=== PATIENT | male | born 1970 | race Caucasian/White ===

== ENCOUNTER 2018-01-25 15:12 | Outpatient (REF) | payer MEDICAID, SELFPAY ==
[2018-01-25 19:54] LABS: ALT 48 U/L (12-78); AST 30 U/L (15-37); Albumin 3.6 g/dL (3.4-5.0); Alkaline Phosphatase 110 U/L (46-116); Bilirubin, Direct 0.07 mg/dL (0.00-0.20); Bilirubin, Total 0.3 mg/dL (0.2-1.0); Total Protein 7.1 g/dL (6.4-8.2)
== END 2018-01-25 15:32 ==
LOC: NCHCN 15:12
PROVIDERS: PCP Internal Medicine; Visit Provider Family Medicine
DX: F10.20 Alcohol dependence, uncomplicated (principal)
CPT/HCPCS: 80076

== ENCOUNTER 2018-02-20 11:25 | Day surgery (SDC) | payer MEDICAID, SELFPAY ==
--- NOTE | 2018-02-19 16:21 | POEE_ITS ---
History of Present Illness Chief Complaint: Progressive decreased vision, left eye Narrative: The patient is a 47-year old male with history of progressive decreased vision in the left eye. He notes blurred vision in the left eye for years. On examination he was noted to have dense posterior subcapsular cataract in the left eye with visual acuity of 2/200. NOTE: The Chief Complaint, HPI, Past Medical History, Past Surgical History, Family History, Social History, Medications, and complete Ophthalmic Exam with detailed Assessment and Plan have already been documented in the patient's outpatient ophthalmic record and are not covered again in detail here. PFSH Medical History Optic atrophy, left eye (Chronic) Mature cataract (Acute) Posterior subcapsular age-related cataract of left eye (Acute) Alcoholism Allergic rhinitis Anxiety and depression Bicuspid aortic valve Cholesteatoma DJD (degenerative joint disease) Diarrhea Elbow pain GERD (gastroesophageal reflux disease) HTN (hypertension) Hearing loss Hemorrhoids Insomnia Lumbosacral neuritis Mastoiditis Otitis externa Papular urticaria Right shoulder pain TIA (transient ischemic attack) Tobacco use disorder Social History Smoking/Tobacco Use Status: Current every day Surgical History Arthroscopy, Shoulder Tympanoplasty I Tympanoplasty II - IV Meds Home Medications Medication Instructions Recorded Confirmed Type aspirin [Low Dose Aspirin Ec] 81 mg PO DAILY tab-cap NS 09/19/17 02/15/18 History albuterol sulfate [Proair 90 mcg INHALATION Q6H PRN 09/22/17 02/15/18 History Respiclick] pantoprazole [Protonix] 40 mg PO DAILY packet 09/22/17 02/15/18 History cetirizine [Zyrtec] 10 mg PO DAILY 02/15/18 02/15/18 History metoprolol succinate 50 mg PO DAILY 02/15/18 02/15/18 History triamcinolone acetonide 1 applic TOPICAL BID 02/15/18 02/15/18 History Allergies Allergy/AdvReac Type Severity Reaction Status Date / Time ibuprofen Allergy Mild Hives Unverified 11/01/17 08:31 lisinopril Allergy Unknown Unverified 11/01/17 08:31 Exam OCULAR EXAM:: Visual acuity at distance: 20/20 right eye, 2/200 left eye Pupils: Significant for an a fair pupillary defect, left eye IOP: 16 OD 18 OS Extraocular Motility: Normal Pertinent Slit Lamp Findings: Significant for pupils dilating to 8 mm OU. Clear lens OD. A 3+ posterior subcapsular cataract is present OS with focal cortical opacities. Dilated Funduscopic Examination: There is no view of the posterior pole in the left eye due to cataract. The right eye shows disc cupping of 0.2. The vessels , macula, peripheral retina and vitreous are normal in the right eye. BRIGHTNESS ACUITY TESTING (BAT):: Off left eye 2/200 Low: 20/400 Medium: Unable High: Unable Assessment and Plan (1) Posterior subcapsular age-related cataract of left eye: Current visit: No Status: Acute Assessment: Visually significant cataract, left eye. Plan: Cataract extraction with intraocular lens implantation, left eye (2) Mature cataract: Current visit: No Status: Acute Assessment: Visually significant cataract, left eye, with poor red reflex Plan: Cataract extraction with intraocular lens implantation, left eye, utilizing capsular staining with vision Blue (3) Optic atrophy, left eye: Current visit: No Status: Chronic Assessment: Optic atrophy, left eye, by history. No view of the optic nerve is possible through mature cataract Plan: Monitor, no treatment Note: NOTE:: The details of the planned surgery, including the risks, indications, limitations,expectations,outcome and possible complications were explained to the patient. The patient understands the complications including, but not limited to: infection, hemorrhage, posterior dislocation of the lens or nuclear fragments which may require the intervention of a vitreoretinal surgeon, possible loss of the eye, or from anesthetic complications. The patient has been made aware of the option of not having surgery, that vision following surgery may not be equal to that prior to surgery, and that the planned surgery may not achieve the intended results. Following this discussion, which the patient appeared to understand, the patient wishes to proceed with cataract surgery with lens implantation of the affected eye to improve and maximize vision.
[2018-02-20 11:41] VITALS: BP 134/91; PULSE 71; RESP 18; TEMP 36.8; O2SAT 99
[2018-02-20 11:44] VITALS: BP 134/91; PULSE 71; RESP 18; TEMP 36.8; O2SAT 99
[2018-02-20] MEDS: Tetracaine 0.5% 4 ML BTL OS ×2 (12:05→12:58)
[2018-02-20] MEDS: Lidocaine 2% Jelly 6 ML SYR (12:58)
[2018-02-20] MEDS: Balanced Salt Soln.-PLUS 500 ML BAG (13:04)
[2018-02-20] MEDS: Trypan Blue 0.06% 0.5 ML SYR (13:04)
[2018-02-20] MEDS: Povidone-Iodine Ophth 30 ML BTL (13:10)
--- NOTE | 2018-02-20 13:46 | W.PM.DSUDISC ---
Discharge Plan Discharge Details Attending Provider: Sebastian Felix Primary Care Provider: Cristel Ramos Home Meds and New Rx's Prescriptions: No Action aspirin [Aspirin Low Dose] 81 MG tablet,delayed release (DR/EC) 81 mg PO DAILY RF: 0 pantoprazole [Protonix] [address] for susp in packet 40 mg PO DAILY RF: 0 albuterol sulfate [ProAir RespiClick] 90 MCG aerosol powdr breath activated 90 mcg Inhalation Q6H PRN RF: 0 triamcinolone acetonide 0.1 % Cream 1 applic TOPICAL BID RF: 0 cetirizine [Zyrtec] 10 mg Capsule 10 mg PO DAILY RF: 0 metoprolol succinate 50 mg Cap,Sprinkle,Er 24hr Dose Pack 50 mg PO DAILY RF: 0 Discharge Instructions Stand Alone Forms: Post-op Topical Cataract, [place] Galeas (DSU) DS: Diagnosis Discharge Diagnosis (1) Posterior subcapsular age-related cataract of left eye: Status: Resolved (2) Mature cataract: Status: Resolved (3) Optic atrophy, left eye: Status: Chronic
--- NOTE | 2018-02-20 13:48 | W.PM.OP ---
Date of service: 02/20/18 Time of Service: 13:48 Operative Note DATE OF PROCEDURE: 02/20/18 PRE-OP DIAGNOSIS: Cataract, left eye, with poor red reflex POST-OP DIAGNOSIS: same PROCEDURE: Cataract extraction using phacoemulsification with intraocular lens implant, left eye, using capsular staining with Vision Blue SURGEON: Sebastian Felix ANESTHESIA: MAC (with local sub-tenon's anesthetic injection) COMPLICATIONS: None Patient was transported to: same day Patient's condition: stable Implants: Tony and Tony / [employer] Tecnis [id number] Indications: Progressive decreased vision due to cataract, left eye, with poor red reflex Findings: Severe zonular laxity Procedure Description: CATARACT SURGERY OPERATIVE REPORT PREOPERATIVE DIAGNOSIS: 1. Mature white cataract, dense posterior subcapsular cataract, left eye 2. Poor red reflex secondary to #1 POSTOPERATIVE DIAGNOSIS: Same OPERATION: 1. Cataract extraction using phacoemulsification with posterior chamber intraocular lens implant, left eye. 2. Capsular staining with Vision Blue IOL: IOL Florist'S Decorator/Model: Tony & Tony / YISEL Tecnis [id number] IOL Power: +25.00 diopters IOL Serial Number: [id number] Optic Diameter: 6.0 mm Haptic/Overall Diameter: 13.0 mm PHACO INFO: Johnnie MynewMDurion Vision System with OZil and Active Fluidics Cumulative Dispersed Energy (CDE): 18.88 seconds SURGEON: Sebastian Felix MD, RADHA ANESTHESIA: Monitored Anesthesia Care (MAC), with local sub-tenon's anesthetic infiltration COMPLICATIONS: None SPECIMENS: None INDICATIONS FOR PROCEDURE: The patient is a 48-year-old male with history of optic atrophy of the left eye with poor vision for many years. However, he has noted progressive decreased vision over the past several years. On examination he was noted to have a dense posterior subcapsular cataract with almost mature white cataract of the left eye. Visual acuity measured 2/200, with an afferent pupillary defect OS. The option of cataract surgery was offered to the patient and he wished to proceed. PROCEDURE: The correct surgical eye was identified and marked as the left eye and the pupil was dilated in the preoperative area using mydriatics, cycloplegics, and NSAIDS (except in aspirin allergic patients). The dilated pupil size was 7.5.mm. Oral sedation was administered in the form of an Imprimis MKO Melt (midazolam 3mg/ketamine 25mg/ondansetron 2mg). The patient was brought to the operating room where cardiopulmonary monitoring was instituted and surgical time-out was performed, confirming the correct operative eye and IOL power. Topical anesthesia was administered and ophthalmic povidone-iodine 5% was instilled into the conjunctival fornices. Lidocaine gel was applied to the cornea and the max-ocular area was prepped with Betadine 10% solution and draped in the usual sterile fashion for intraocular surgery. Steri-strips were used to cover the lashes and lid margins and an adhesive eye drape was placed. Care was taken to isolate the lashes and lid margins under the Steri-strips and adhesive eye drape. A lid speculum was placed between the lids of the operative eye and the Myke-Montrell operating microscope was maneuvered into position. Bryant scissors were then used to make a conjunctival buttonhole approximately 6mm posterior to the limbus in the inferonasal quadrant. Blunt dissection was carried out to expose bare sclera, and a blunt-tipped sub-tenon?s anesthesia cannula was introduced and passed posteriorly along the globe where non-preserved plain lidocaine was injected into posterior sub-Tenon?s space. A sideport knife was used to make a paracentesis port at the 12:00 position. Air was injected into the anterior chamber, followed by Vision Blue, which was painted over the anterior capsule and then irrigated out using BSS. The anterior chamber was filled with Healon GV. A 2.4mm keratome knife was used to create a half-thickness groove at the limbus and then to construct a three-plane near-clear corneal tunnel extending 2.0mm into clear cornea at the 3:00 position. A flap was raised on the anterior capsule and capsulorhexis forceps were used to complete a continuous curvilinear capsulorhexis of 5.5mm. The capsule was noted to be very thin. Severe zonular laxity was noted. Balanced salt solution was then used to perform cortical cleaving hydrodissection and nuclear hydrodelineation until the lens could be freely rotated within the capsular bag. The lens nucleus was then disassembled and removed within the capsular bag and iris plane using phacoemulsification. Nucleus splitters were used to aid in cracking the nucleus to minimize stress on the zonules. Residual cortical material was removed using the 45-degree angled silicone I/A tip with 0.3mm port. The posterior capsule was carefully polished to remove as much residual lens epithelial cells as safely possible. There was some residual fine cortical material in the subincisional area which could not be safely removed. The capsular bag was then inflated and the anterior chamber deepened with viscoelastic. The lens implant described above was inserted into the capsular bag using the YISEL [place] Injector. A Kuglen hook was used to dial the IOL into position. Residual viscoelastic was then removed first from posterior to the IOL, then from the anterior chamber using the I/A handpiece. Additional efforts were made to remove the friable subincisional cortical material. The lens implant was noted to center nicely within the capsular bag. The incisions were stromally hydrated, and the anterior chamber was reformed using BSS. Then 0.4cc of moxifloxacin 1.5mg/ml were injected into the capsular bag and anterior chamber. The incisions were checked with a Weck spear and found to be secure. Several drops of ophthalmic povidone-iodine 5% were then applied to the eye followed by two drops of Imprimis combination moxifloxacin/dexamethasone solution. The drapes were removed and a clear plastic protective eye shield was placed over the eye. The patient was then returned to Same Day Surgery in stable condition.
--- NOTE | 2018-02-20 13:52 | ROE_ITS ---
Date of service: 02/20/18 Time of Service: 13:48 Operative Note DATE OF PROCEDURE: 02/20/18 PRE-OP DIAGNOSIS: Cataract, left eye, with poor red reflex POST-OP DIAGNOSIS: same PROCEDURE: Cataract extraction using phacoemulsification with intraocular lens implant, left eye, using capsular staining with Vision Blue SURGEON: Sebastian Felix ANESTHESIA: MAC (with local sub-tenon's anesthetic injection) COMPLICATIONS: None Patient was transported to: same day Patient's condition: stable Implants: Tony and Tony / [employer] Opt[employer] Tecnis [id number] Indications: Progressive decreased vision due to cataract, left eye, with poor red reflex Findings: Severe zonular laxity Procedure Description: CATARACT SURGERY OPERATIVE REPORT PREOPERATIVE DIAGNOSIS: 1. Mature white cataract, dense posterior subcapsular cataract, left eye 2. Poor red reflex secondary to #1 POSTOPERATIVE DIAGNOSIS: Same OPERATION: 1. Cataract extraction using phacoemulsification with posterior chamber intraocular lens implant, left eye. 2. Capsular staining with Vision Blue IOL: IOL Metal Bonding Press Operator/Model: Tony & Tony / YISEL Tecnis [id number] IOL Power: +25.00 diopters IOL Serial Number: [id number] Optic Diameter: 6.0 mm Haptic/Overall Diameter: 13.0 mm PHACO INFO: Johnnie Sorrento Therapeuticsurion Vision System with OZil and Active Fluidics Cumulative Dispersed Energy (CDE): 18.88 seconds SURGEON: Sebastian Felix MD, RADHA ANESTHESIA: Monitored Anesthesia Care (MAC), with local sub-tenon's anesthetic infiltration COMPLICATIONS: None SPECIMENS: None INDICATIONS FOR PROCEDURE: The patient is a 48-year-old male with history of optic atrophy of the left eye with poor vision for many years. However, he has noted progressive decreased vision over the past several years. On examination he was noted to have a dense posterior subcapsular cataract with almost mature white cataract of the left eye. Visual acuity measured 2/200, with an afferent pupillary defect OS. The option of cataract surgery was offered to the patient and he wished to proceed. PROCEDURE: The correct surgical eye was identified and marked as the left eye and the pupil was dilated in the preoperative area using mydriatics, cycloplegics, and NSAIDS (except in aspirin allergic patients). The dilated pupil size was 7.5.mm. Oral sedation was administered in the form of an Imprimis MKO Melt (midazolam 3mg/ketamine 25mg/ondansetron 2mg). The patient was brought to the operating room where cardiopulmonary monitoring was instituted and surgical time-out was performed, confirming the correct operative eye and IOL power. Topical anesthesia was administered and ophthalmic povidone-iodine 5% was instilled into the conjunctival fornices. Lidocaine gel was applied to the cornea and the max-ocular area was prepped with Betadine 10% solution and draped in the usual sterile fashion for intraocular surgery. Steri-strips were used to cover the lashes and lid margins and an adhesive eye drape was placed. Care was taken to isolate the lashes and lid margins under the Steri-strips and adhesive eye drape. A lid speculum was placed between the lids of the operative eye and the Myke-Montrell operating microscope was maneuvered into position. Bryant scissors were then used to make a conjunctival buttonhole approximately 6mm posterior to the limbus in the inferonasal quadrant. Blunt dissection was carried out to expose bare sclera, and a blunt-tipped sub-tenon? s anesthesia cannula was introduced and passed posteriorly along the globe where non-preserved plain lidocaine was injected into posterior sub-Tenon?s space. A sideport knife was used to make a paracentesis port at the 12:00 position. Air was injected into the anterior chamber, followed by Vision Blue, which was painted over the anterior capsule and then irrigated out using BSS. The anterior chamber was filled with Healon GV. A 2.4mm keratome knife was used to create a half-thickness groove at the limbus and then to construct a three-plane near-clear corneal tunnel extending 2.0mm into clear cornea at the 3 :00 position. A flap was raised on the anterior capsule and capsulorhexis forceps were used to complete a continuous curvilinear capsulorhexis of 5.5mm. The capsule was noted to be very thin. Severe zonular laxity was noted. Balanced salt solution was then used to perform cortical cleaving hydrodissection and nuclear hydrodelineation until the lens could be freely rotated within the capsular bag. The lens nucleus was then disassembled and removed within the capsular bag and iris plane using phacoemulsification. Nucleus splitters were used to aid in cracking the nucleus to minimize stress on the zonules. Residual cortical material was removed using the 45-degree angled silicone I/A tip with 0.3mm port. The posterior capsule was carefully polished to remove as much residual lens epithelial cells as safely possible. There was some residual fine cortical material in the subincisional area which could not be safely removed. The capsular bag was then inflated and the anterior chamber deepened with viscoelastic. The lens implant described above was inserted into the capsular bag using the YISEL [place] Injector. A Kuglen hook was used to dial the IOL into position. Residual viscoelastic was then removed first from posterior to the IOL, then from the anterior chamber using the I/A handpiece. Additional efforts were made to remove the friable subincisional cortical material. The lens implant was noted to center nicely within the capsular bag. The incisions were stromally hydrated, and the anterior chamber was reformed using BSS. Then 0.4cc of moxifloxacin 1.5mg/ml were injected into the capsular bag and anterior chamber. The incisions were checked with a Weck spear and found to be secure. Several drops of ophthalmic povidone-iodine 5% were then applied to the eye followed by two drops of Imprimis combination moxifloxacin/dexamethasone solution. The drapes were removed and a clear plastic protective eye shield was placed over the eye. The patient was then returned to Same Day Surgery in stable condition.
[2018-02-20 14:05] VITALS: BP 128/99; PULSE 74; RESP 16; TEMP 36.8; O2SAT 97
== END 2018-02-20 14:15 | disposition home or self-care (01) ==
LOC: SUR 11:26
PROVIDERS: PCP Family Medicine; Visit Provider Ophthalmology
PROC: (CPT 66982; principal; 2018-02-20 14:30)
DX: H25.042 Posterior subcapsular polar age-related cataract, left eye (principal); H35.89 Other specified retinal disorders; J44.9 Chronic obstructive pulmonary disease, unspecified; I10 Essential (primary) hypertension; K21.9 Gastro-esophageal reflux disease without esophagitis; F10.10 Alcohol abuse, uncomplicated; F17.210 Nicotine dependence, cigarettes, uncomplicated
CPT/HCPCS: 66982; V2632

== ENCOUNTER 2018-05-05 18:18 | Outpatient (REF) | payer MEDICAID, SELFPAY ==
[2018-05-05 18:30] LABS: HCT 45.1 % (40.0-50.0); HGB 15.9 g/dL (13.5-17.5); Mean Corp. HGB Concentration 35.3 g/dL (32.0-36.0); Mean Corpuscular Hemoglobin 33.8 pg (27.0-33.0); Mean Corpuscular Volume 95.8 fL (80-95); Mean Platelet Volume 9.6 fL (8.0-11.0); Platelet Count 255 x1000/uL (130-400); RBC 4.71 m/cumm (4.50-6.00); RBC Distribution Width 13.9 % (11.8-14.1)
[2018-05-05 18:49] LABS: ALT 58 U/L (12-78); AST 30 U/L (15-37); Albumin 3.8 g/dL (3.4-5.0); Alkaline Phosphatase 88 U/L (46-116); Anion Gap 12.8 mmol/L (3-11); BUN 3 mg/dL (7-18); Bilirubin, Total 0.4 mg/dL (0.2-1.0); CO2 23.2 mmol/L (21.0-32.0); CREATININE 0.73 mg/dL (0.70-1.30); Calcium 8.8 mg/dL (8.5-10.1); Chloride 102 mmol/L (98-107); Glucose 87 mg/dL (70-100); Potassium 3.8 mmol/L (3.5-5.1); Sodium 138 mmol/L (136-145)
== END 2018-05-05 18:38 ==
LOC: NCHCN 18:18
PROVIDERS: PCP Family Medicine; Visit Provider Family Medicine
DX: R19.7 Diarrhea, unspecified (principal); R42 Dizziness and giddiness
CPT/HCPCS: 80053; 85027; 83735

== ENCOUNTER 2018-05-14 19:39 | Emergency (ER) | payer MEDICAID, SELFPAY ==
[2018-05-14 19:49] VITALS: BP 133/83; PULSE 99; RESP 20; TEMP 36.7; O2SAT 94
[2018-05-14 19:51] VITALS: RESP 20
--- NOTE | 2018-05-14 20:02 | W.ED.GENAD ---
Discharge Plan Disposition Patient Disposition: HOME Condition: Stable Discharge Details Chief Complaint: GenMedical Clinical Impression: Alcohol abuse, Intractable hiccups Primary Care Provider: Cristel Ramos ED Provider: Eulalio Cummings Home Meds and New Rx's Prescriptions: New metoclopramide HCl 5 mg tablet 5 mg PO ONCE PRN (Reason: hiccups) 5 Days Qty: 20 RF: 0 No Action aspirin [Aspirin Low Dose] 81 MG tablet,delayed release (DR/EC) 81 mg PO DAILY RF: 0 Protonix [address] for susp in packet 40 mg PO DAILY RF: 0 ProAir RespiClick 90 MCG aerosol powdr breath activated 90 mcg Inhalation Q6H PRN RF: 0 triamcinolone acetonide 0.1 % Cream 1 applic TOPICAL BID RF: 0 Zyrtec 10 mg Capsule 10 mg PO DAILY RF: 0 metoprolol succinate 50 mg Cap,Sprinkle,Er 24hr Dose Pack 50 mg PO DAILY RF: 0 Discharge Instructions Instructions: Hiccups (ED) Additional Instructions: Your alcohol use is likely causing your hiccups follow up with your primary care provider within 1-2 weeks if you have new symptoms such as fever, vision changes, difficulty breathing or severe abdominal pain return to the emergency department Medical Decision Making 48 yo male who drinks a 12 back of beer daily, copd who continues to smoke, comes in with complaint of hiccups for 4 days. HAs had issues with prologned hiccups in the past. He does have heavy smell of alcohol on his breath and has been drinking most of the day per pt but is caox4 with NIH of 0 on my exam, doubt cva and has no headaches to suggest underlying lead manufacturing technician tumor. I suspect symptoms are due to his heavy alcohol use but will eval for possible electrolyte abnormalities and pancreatitis and monitor. Has no foreign bodies in the ear canal that would be causing his symptoms as well. The noise that he is making doesn't sound typical of a hiccup so could also be psychogenic hiccups pt now resting in bed without symptoms, labs unremarkable other than etoh over 300, though remarkable is clinically sober. He is not driving home. I will prescribe the metoclopramide and advised to decrease alcohol use and f/u with pcp, return precautions given Differential Diagnosis alcohol use, pancreatitis, electrolyte abnormality Lab Data Lab results reviewed: Yes I reviewed the patient's lab results. HPI General Mode of arrival: ambulatory. Date/Time Provider Initiated Documentation: 05/14/18 19:51. Limitations to Documentation: no limitations. Information obtained by: patient. History of Present Illness 48 year old M presents to the emergency department with the chief complaint of hiccups, described as severe, Patient reports no radiation. Patient started experiencing this day(s) (4) and it has been constant. No relieving factors improve symptom(s), No exacerbating factors reported . Patient notes no other symptoms.. Patient did receive the following treatments prior to arrival, none Related Data Home Medications Medication Instructions Recorded Confirmed aspirin [Low Dose Aspirin Ec] 81 mg PO DAILY tab-cap NS 09/19/17 05/14/18 albuterol sulfate [Proair 90 mcg INHALATION Q6H PRN 09/22/17 05/14/18 Respiclick] pantoprazole [Protonix] 40 mg PO DAILY packet 09/22/17 05/14/18 cetirizine [Zyrtec] 10 mg PO DAILY 02/15/18 05/14/18 metoprolol succinate 50 mg PO DAILY 02/15/18 05/14/18 triamcinolone acetonide 1 applic TOPICAL BID 02/15/18 05/14/18 metoclopramide HCl 5 mg PO ONCE PRN 5 Days #20 tab 05/14/18 Previous Rx's Medication Instructions Recorded metoclopramide HCl 5 mg PO ONCE PRN 5 Days #20 tab 05/14/18 Allergies Allergy/AdvReac Type Severity Reaction Status Date / Time ibuprofen Allergy Mild Hives Unverified 05/14/18 19:53 lisinopril Allergy Unknown Unverified 05/14/18 19:53 General Stated Complaint: GenMedical DIANNA: 4 Review of Systems Review of Systems All systems reviewed & are unremarkable except as noted in HPI and below Constitutional Denies chills, Denies fever(s) and Denies weakness Eyes Denies loss of vision ENT Denies change in voice Cardiovascular Denies chest pain and Denies dyspnea Respiratory Denies dyspnea Gastrointestinal Denies abdominal pain, Denies nausea and Denies vomiting Genitourinary Denies dysuria Musculoskeletal Denies joint swelling Integumentary/Breasts Denies rash Neurologic Denies loss of vision and Denies weakness Endocrine Denies heat intolerance [facility] Medical History Optic atrophy, left eye (Chronic) Mature cataract (Resolved 02/20/18) Posterior subcapsular age-related cataract of left eye (Resolved 02/20/18) Alcoholism Allergic rhinitis Anxiety and depression Bicuspid aortic valve Cholesteatoma DJD (degenerative joint disease) Diarrhea Elbow pain GERD (gastroesophageal reflux disease) HTN (hypertension) Hearing loss Hemorrhoids Insomnia Lumbosacral neuritis Mastoiditis Otitis externa Papular urticaria Right shoulder pain TIA (transient ischemic attack) Tobacco use disorder Surgical History Arthroscopy, Shoulder Tympanoplasty I Tympanoplasty II - IV Social History Smoking/Tobacco Use Status: Current every day Exam Const General: no acute distress Orientation: alert HENMT Head: normal to inspection Ears: external ears normal General nose exam: external nose normal Mouth: moist mucous membranes Eyes General: appearance normal, both eyes and all related structures Neck Neck: normal visual inspection Resp Effort & Inspection: normal respiratory effort and able to speak in complete sentences Cardio Rate: regular rate Skin General skin exam: no rashes or lesions noted Neuro General: alert and oriented x3 Extrem General: normal to inspection Psych Mental Status: mental status grossly normal Course Vital Signs Temperature 36.7 C 05/14/18 19:49 Pulse 99 H 05/14/18 19:49 Respiratory Rate 20 05/14/18 19:49 Blood Pressure 133/83 05/14/18 19:49 Pulse Oximetry 94 L 05/14/18 19:49 Temperature 36.7 C 05/14/18 19:49 Temperature Source Temporal Artery Scan 05/14/18 19:49 Pulse 99 H 05/14/18 19:49 Respiratory Rate 20 05/14/18 19:51 Respiratory Effort 05/14/18 19:51 Respiratory Depth Normal 05/14/18 19:51 Blood Pressure 133/83 05/14/18 19:49 Pulse Oximetry 94 L 05/14/18 19:49 Oxygen Delivery Method Room Air 05/14/18 19:49 Oxygen Flow Rate 0 05/14/18 19:49 Pain Level 0 05/14/18 19:49
--- NOTE | 2018-05-14 20:06 | ED.GENADUL_ITS ---
Discharge Plan Disposition Patient Disposition: HOME Condition: Stable Discharge Details Chief Complaint: GenMedical Clinical Impression: Alcohol abuse, Intractable hiccups Primary Care Provider: Cristel Ramos ED Provider: Eulalio Cummings Home Meds and New Rx's Prescriptions: New metoclopramide HCl 5 mg tablet 5 mg PO ONCE PRN (Reason: hiccups) 5 Days Qty: 20 RF: 0 No Action aspirin [Aspirin Low Dose] 81 MG tablet,delayed release (DR/EC) 81 mg PO DAILY RF: 0 Protonix [address] for susp in packet 40 mg PO DAILY RF: 0 ProAir RespiClick 90 MCG aerosol powdr breath activated 90 mcg Inhalation Q6H PRN RF: 0 triamcinolone acetonide 0.1 % Cream 1 applic TOPICAL BID RF: 0 Zyrtec 10 mg Capsule 10 mg PO DAILY RF: 0 metoprolol succinate 50 mg Cap,Sprinkle,Er 24hr Dose Pack 50 mg PO DAILY RF: 0 Discharge Instructions Instructions: Hiccups (ED) Additional Instructions: Your alcohol use is likely causing your hiccups follow up with your primary care provider within 1-2 weeks if you have new symptoms such as fever, vision changes, difficulty breathing or severe abdominal pain return to the emergency department Medical Decision Making 48 yo male who drinks a 12 back of beer daily, copd who continues to smoke, comes in with complaint of hiccups for 4 days. HAs had issues with prologned hiccups in the past. He does have heavy smell of alcohol on his breath and has been drinking most of the day per pt but is caox4 with NIH of 0 on my exam, doubt cva and has no headaches to suggest underlying rn womens health tumor. I suspect symptoms are due to his heavy alcohol use but will eval for possible electrolyte abnormalities and pancreatitis and monitor. Has no foreign bodies in the ear canal that would be causing his symptoms as well. The noise that he is making doesn't sound typical of a hiccup so could also be psychogenic hiccups pt now resting in bed without symptoms, labs unremarkable other than etoh over 300, though remarkable is clinically sober. He is not driving home. I will prescribe the metoclopramide and advised to decrease alcohol use and f/u with pcp, return precautions given Differential Diagnosis alcohol use, pancreatitis, electrolyte abnormality Lab Data Lab results reviewed: Yes I reviewed the patient's lab results. HPI General Mode of arrival: ambulatory . Date/Time Provider Initiated Documentation: 05/14/18 19:51 . Limitations to Documentation: no limitations . Information obtained by: patient . History of Present Illness 48 year old M presents to the emergency department with the chief complaint of hiccups, described as severe, Patient reports no radiation. Patient started experiencing this day(s) (4) and it has been constant. No relieving factors improve symptom(s), No exacerbating factors reported . Patient notes no other symptoms.. Patient did receive the following treatments prior to arrival, none Related Data Home Medications Medication Instructions Recorded Confirmed aspirin [Low Dose Aspirin Ec] 81 mg PO DAILY tab-cap NS 09/19/17 05/14/18 albuterol sulfate [Proair 90 mcg INHALATION Q6H PRN 09/22/17 05/14/18 Respiclick] pantoprazole [Protonix] 40 mg PO DAILY packet 09/22/17 05/14/18 cetirizine [Zyrtec] 10 mg PO DAILY 02/15/18 05/14/18 metoprolol succinate 50 mg PO DAILY 02/15/18 05/14/18 triamcinolone acetonide 1 applic TOPICAL BID 02/15/18 05/14/18 metoclopramide HCl 5 mg PO ONCE PRN 5 Days #20 tab 05/14/18 Previous Rx's Medication Instructions Recorded metoclopramide HCl 5 mg PO ONCE PRN 5 Days #20 tab 05/14/18 Allergies Allergy/AdvReac Type Severity Reaction Status Date / Time ibuprofen Allergy Mild Hives Unverified 05/14/18 19:53 lisinopril Allergy Unknown Unverified 05/14/18 19:53 General Stated Complaint: GenMedical DIANNA: 4 Review of Systems Review of Systems All systems reviewed & are unremarkable except as noted in HPI and below Constitutional Denies chills, Denies fever(s) and Denies weakness Eyes Denies loss of vision ENT Denies change in voice Cardiovascular Denies chest pain and Denies dyspnea Respiratory Denies dyspnea Gastrointestinal Denies abdominal pain, Denies nausea and Denies vomiting Genitourinary Denies dysuria Musculoskeletal Denies joint swelling Integumentary/Breasts Denies rash Neurologic Denies loss of vision and Denies weakness Endocrine Denies heat intolerance [facility] Medical History Optic atrophy, left eye (Chronic) Mature cataract (Resolved 02/20/18) Posterior subcapsular age-related cataract of left eye (Resolved 02/20/18) Alcoholism Allergic rhinitis Anxiety and depression Bicuspid aortic valve Cholesteatoma DJD (degenerative joint disease) Diarrhea Elbow pain GERD (gastroesophageal reflux disease) HTN (hypertension) Hearing loss Hemorrhoids Insomnia Lumbosacral neuritis Mastoiditis Otitis externa Papular urticaria Right shoulder pain TIA (transient ischemic attack) Tobacco use disorder Surgical History Arthroscopy, Shoulder Tympanoplasty I Tympanoplasty II - IV Social History Smoking/Tobacco Use Status: Current every day Exam Const General: no acute distress Orientation: alert HENMT Head: normal to inspection Ears: external ears normal General nose exam: external nose normal Mouth: moist mucous membranes Eyes General: appearance normal, both eyes and all related structures Neck Neck: normal visual inspection Resp Effort & Inspection: normal respiratory effort and able to speak in complete sentences Cardio Rate: regular rate Skin General skin exam: no rashes or lesions noted Neuro General: alert and oriented x3 Extrem General: normal to inspection Psych Mental Status: mental status grossly normal Course Vital Signs Temperature 36.7 C 05/14/18 19:49 Pulse 99 H 05/14/18 19:49 Respiratory Rate 20 05/14/18 19:49 Blood Pressure 133/83 05/14/18 19:49 Pulse Oximetry 94 L 05/14/18 19:49 Temperature 36.7 C 05/14/18 19:49 Temperature Source Temporal Artery Scan 05/14/18 19:49 Pulse 99 H 05/14/18 19:49 Respiratory Rate 20 05/14/18 19:51 Respiratory Effort 05/14/18 19:51 Respiratory Depth Normal 05/14/18 19:51 Blood Pressure 133/83 05/14/18 19:49 Pulse Oximetry 94 L 05/14/18 19:49 Oxygen Delivery Method Room Air 05/14/18 19:49 Oxygen Flow Rate 0 05/14/18 19:49 Pain Level 0 05/14/18 19:49
[2018-05-14] MEDS: Metoclopramide 10 MG TAB PO ×2 (20:13→20:51)
[2018-05-14 20:21] LABS: Abs Immature Grans 0.02 k/cumm (0.0-0.09); Absolute Basophil Count 0.06 k/cumm (0.0-0.2); Absolute Eosinophil Count 0.09 k/cumm (0.0-0.7); Absolute Monocyte Count 0.42 k/cumm (0.11-0.7); Absolute Neutrophil Count 3.66 k/cumm (1.2-6.7); Basophils % 0.9; Eosinophils % 1.4; HCT 48.7 % (40.0-50.0); HGB 17.1 g/dL (13.5-17.5); Immature Grans % 0.3; Lymphocytes % 33.1; Mean Corp. HGB Concentration 35.1 g/dL (32.0-36.0); Mean Corpuscular Hemoglobin 33.1 pg (27.0-33.0); Mean Corpuscular Volume 94.4 fL (80-95); Mean Platelet Volume 8.7 fL (8.0-11.0); Monocytes % 6.6; Neutrophils % 57.7; Platelet Count 302 x1000/uL (130-400); RBC 5.16 m/cumm (4.50-6.00); RBC Distribution Width 14.1 % (11.8-14.1); White Blood Cell Count 6.35 k/cumm (4.4-10.8)
[2018-05-14 20:33] LABS: ALT 38 U/L (12-78); AST 30 U/L (15-37); Alkaline Phosphatase 91 U/L (46-116); Anion Gap 11.1 mmol/L (3-11); BUN 5 mg/dL (7-18); Bilirubin, Total 0.2 mg/dL (0.2-1.0); CO2 27.9 mmol/L (21.0-32.0); CREATININE 0.62 mg/dL (0.70-1.30); Calcium 8.8 mg/dL (8.5-10.1); Chloride 100 mmol/L (98-107); ETHANOL BLOOD 348.5 mg/dL (<3); Glucose 114 mg/dL (70-100); Lipase 311 U/L (73-393); Magnesium 2.5 mg/dL (1.8-2.4); Potassium 3.9 mmol/L (3.5-5.1); Sodium 139 mmol/L (136-145); Total Protein 7.9 g/dL (6.4-8.2)
== END 2018-05-14 20:58 | disposition home or self-care (01) ==
PROVIDERS: Emergency Provider Emergency Medicine; PCP Family Medicine
DX: R06.6 Hiccough (principal); F10.10 Alcohol abuse, uncomplicated; J44.9 Chronic obstructive pulmonary disease, unspecified; F17.210 Nicotine dependence, cigarettes, uncomplicated; I10 Essential (primary) hypertension
CPT/HCPCS: 36415; 80053; 80076; 83690; 99283; 80320; 83735; 85025

== ENCOUNTER 2018-08-24 01:11 | Outpatient (CLI) | payer MEDICAID, SELFPAY ==
--- NOTE | 2018-09-04 14:49 | PFT_ITS ---
PULMONARY FUNCTION TEST REPORT DATE OF SERVICE: August 24, 2018 REQUESTING PROVIDER: Cristel Ramos M.D. Spirometry shows no evidence of obstructive airways disease. No bronchodilator response testing was carried out. Lung volumes show no evidence of restriction. Diffusion capacity normal. Airways resistance normal. IMPRESSION: Overall normal pulmonary function study. No bronchodilator testing was carried out. Clinical correlation recommended. When this study is compared to previous ones from 10/09/08, 07/30/11, 08/21/14, 06/02/16 and 04/18/17, the patient has a gradual, slight decline in FVC, which has been largely stable since 2011. Overall from 2008 there is a 390 cc's decline. FEV1 again has had an overall 520 cc's decline, but has been largely stable since 2011. Clinical correlation recommended. VAUGHN/laura D/
== END 2018-08-24 01:31 ==
PROVIDERS: PCP Family Medicine; Visit Provider Family Medicine
DX: J44.9 Chronic obstructive pulmonary disease, unspecified (principal); R06.09 Other forms of dyspnea; F17.210 Nicotine dependence, cigarettes, uncomplicated
CPT/HCPCS: 94150; 94726; 94729; 94010

== ENCOUNTER 2018-09-19 06:52 | Day surgery (SDC) | payer MEDICAID, SELFPAY ==
--- NOTE | 2018-09-19 06:41 | ENDO_ITS ---
Date of service: 09/19/18 Time of Service: 08:44 Endoscopy Report DATE OF PROCEDURE: 09/19/18 PRE-OP DIAGNOSIS: GERD/ Colon Cancer Screening and FHx of Colon Cancer/ alcohol abuse POST-OP DIAGNOSIS: other (Duodenal Polyp, Gastritis, Severe esophagitis, chronic anal fissure, rectal polyp) PROCEDURE: 1. EGD with biopsies 2. Colonoscopy with polypectomy SURGEON: Otilia Beebe ANESTHESIA: other (General/ ASA 3/ ) PATHOLOGY: other (duodenal polyp, esophageal bx, rectal polyp) COMPLICATIONS: None DISPOSITION: no change INDICATIONS: Mr. Cortez is a pleasant 48 year old male seen in the office for his first screening colonoscopy. He does have a family history of colon cancer in an uncle. He also has a history of GERD and has been having some breakthrough symptoms. He is on pantoprazole normally. Risks, benefits and complications have been reviewed. Complications include but are not limited to bleeding, pain, perforation, missed small lesion/polyp, sore throat, aspiration and adverse reaction to the medications. Questions were entertained and answered to their satisfaction and they wished to proceed. No guarantees were given or implied. PREP: Miralax/Dulcolax PROCEDURE START TIME: :44 PROCEDURE END TIME: 09:26 COLONOSCOPY RETRACTION TIME: 17 minutes FINDINGS: 1. Duodenal polyp without inflammation, gastritis without ulcers and severe esophagitis 2. Chronic anal fissure at 6 o'clock and rectal polyp PROCEDURE DESCRIPTION: After informed consent was obtained the patient was take to the procedure room and placed in a supine position. Monitors were applied and a time out was done. The patients name, date of , procedure type, allergies to medications and metal in their body was reviewed. A bite block was placed and the patient was sedated. Once sedated and comfortable the gastroscope was advanced through the oropharynx which was grossly normal into the esophagus. The proximal and mid- esophagus were normal. In the distal esophagus there was severe inflammation noted. The scope was advanced into the stomach and through the pylorus into the 3rd portion of the duodenum. The duodenum was noted to be normal. There was one polyp noted in the first portion of the duodenum and it was removed with cold forceps. The scope was retracted back into the stomach. There was moderate inflammation without ulcers. The scope was retroflexed. The cardia and fundus were noted to be normal. There was no hiatal hernia noted. The scope was retracted back into the esophagus and biopsies were done of the GE junction to rule out Vázquez's. The Z line was irregular. The GE junction was at 38 cm. Biopsies were done at 38 and 35 cm. While the patient was still sedated they were placed in a left decubitous position. A rectal exam was done. External exam revealed a chronic fissure at 6 o'clock. Internal exam revealed a normal sphincter tone and no palpable masses. The prostate was not palpated. The scope was then introduced and retro-flexed. No internal hemorrhoids were identified. The fissure was again identified and it was bleeding. The scope was then advanced to the cecum with some difficulty. The TI and appendiceal orifice were identified. The prep was adequate. The scope was then slowly retracted over 17 minutes back into the rectum. There was a rectal polyp and it was removed with cold forceps. The scope was removed and the patient was woken up and taken back to Same day surgery in stable condition. The patient tolerated the procedure well and there were no immediate complications. Follow up: with PCP. I will increase his Protonix to BID. He was counseled again about the fact that he needs to stop drinking. No varices were noted. He will most likly need another colonoscopy in 5 years. I will prescribe an ointment for his fissure and also recommend metamucil daily.
--- NOTE | 2018-09-19 06:41 | W.PM.DSUDISC ---
Discharge Plan Disposition Patient Disposition: HOME Condition: Good Discharge Details Reason For Visit: Colon Cancer Screening/ FHx of colon Cancer/ GERD Attending Provider: Otilia Beebe Primary Care Provider: Cristel Ramos Home Meds and New Rx's Prescriptions: New hydrocortisone [Proctosol HC] 2.5 % cream with perineal applicator 1 applic MI BID-QID PRN (Reason: hemorrhoids) Qty: 28.35 RF: 0 Fiber (psyllium husk/sugar) 3.4 gram/11 gram powder 1 tbs PO DAILY Qty: 538 RF: 5 sucralfate [Carafate] 1 gram tablet 1 gm PO QACHS Qty: 120 RF: 0 Continued Protonix [address] for susp in packet 40 mg PO DAILY RF: 0 ProAir RespiClick 90 MCG aerosol powdr breath activated 90 mcg Inhalation Q6H PRN RF: 0 triamcinolone acetonide 0.1 % Cream 1 applic TOPICAL BID RF: 0 Discontinued polyethylene glycol 3350 17 gram/dose powder 238 g PO ONCE Qty: 238 RF: 0 bisacodyl [Dulcolax (bisacodyl)] 5 mg tablet,delayed release (DR/EC) 5 mg PO ONCE Qty: 4 RF: 0 Discharge Instructions Instructions: Colonoscopy (DC), Upper Endoscopy (DC), Diet for Stomach Ulcers and Gastritis (GEN), Gastritis (DC), Esophagitis (DC), Colorectal Polyps (DC), Anal Fissure (GEN), Alcohol Use Disorder (GEN) Additional Instructions: Findings: Severe inflammation of the esophagus and moderate inflammation of the stomach. You need to stop drinking alcohol One colorectal polyp and a chronic fissure Follow up: with your PCP in 2 weeks Please call if you develop: fevers >101.5 Nausea or Vomiting Abdominal pain that is not transient DAY SURGERY UNIT POST COLONOSCOPY INSTRUCTIONS 1. Because there will be medication in your system for the next 24 hours, you may feel a little sleepy. Your coordination will be affected. Therefore: a. Do not drive or operate dangerous equipment for 24 hours. b. Do not drink alcohol beverages for 24 hours (not even beer). c. Plan to go home and rest for the day. 2. Generally there are no restrictions on your activity after a day or so has gone by, but you may feel a bit fatigued for a few days. 3 After you arrive home you may have a light meal and return to a normal diet as you can tolerate it without feeling sick to your stomach. 4. After surgery, you may feel pain or discomfort. This should be only transient, but if it persists please contact your doctor. 5. If there are any questions regarding the findings of your procedure, please feel free to contact your doctor. 6. If you are unable to contact your doctor with a problem, contact the hospital at [phone]. 7. Continue all your regular medications unless directed otherwise. I understand the above instructions and have no questions. Signature of Patient or Responsible Adult Escort Date/Time Name of Responsible Adult Escort Signature of Nurse Date/Time Stand Alone Forms: Virginia Galeas (KALEBU) Activity:: Activity as Tolerated Diet:: Low acid diet Discharge Orders Discharge Orders: Discharge Order (Routine); Ordered 09/19/18 Ordered By: Otilia Beebe DS: Diagnosis Discharge Diagnosis (1) S/P colonoscopy: Status: Acute (2) H/O esophagogastroduodenoscopy: Status: Chronic (3) Gastritis: Status: Acute (4) Esophagitis: Status: Acute (5) Colorectal polyp detected on colonoscopy: Status: Acute (6) Chronic anal fissure: Status: Acute
[2018-09-19 07:20] VITALS: BP 130/82; PULSE 85; RESP 16; TEMP 36.8; O2SAT 97
[2018-09-19] MEDS: Lactated Ringers 1,000 ML 80 ML IV (07:45)
--- NOTE | 2018-09-19 08:46 | BOWEL_PTH ---
PATIENT: Richie Cortez LOC: PER U#:[id number] AGE/SX: 48/M ROOM: RE09/19/[address]: Otilia Beebe MD : [id number] BED: DIS: 09/19/2018 SPEC #: [id number] RECD: 09/19/18 12:54 STATUS: JANET REQ #: [id number] AMIRA: 09/19/18 08:[address]: Otilia Beebe DEPT: Surgical Specimen RECD BY: Svetlana Piper ENTERED: 09/19/18 12:57 SP TYPE: Bowel OTHR DR: Cristel Ramos Tissues: 1 - BIOPSY BOWEL 2 - ESOPHAGUS BIOPSY 3 - BIOPSY BOWEL Procedures: GROSS AND MICRO LEVEL 4 Comments: [id number]
[2018-09-19 09:42] VITALS: PULSE 82; RESP 20; O2SAT 98
[2018-09-19 09:57] VITALS: BP 120/92; PULSE 96; RESP 18; TEMP 35.6; O2SAT 98
== END 2018-09-19 10:38 | disposition home or self-care (01) ==
LOC: SUR 06:53
PROVIDERS: PCP Family Medicine; Visit Provider Surgery
PROC: (CPT 45380; principal; 2018-09-19 08:30)
DX: Z12.11 Encounter for screening for malignant neoplasm of colon (principal); K62.1 Rectal polyp; K20.9 Esophagitis, unspecified; K29.80 Duodenitis without bleeding
CPT/HCPCS: 45380; 43239; 88305

== ENCOUNTER 2018-11-06 13:33 | Emergency (ER) | payer MEDICAID, SELFPAY ==
[2018-11-06] VITALS (19 sets, daily range): BP systolic 99–118; BP diastolic 66–83; PULSE 79–117; RESP 15–21; TEMP 37; O2SAT 93–96
--- NOTE | 2018-11-06 13:49 | W.ED.GENAD ---
Discharge Plan Disposition Patient Disposition: HOME Condition: Stable Discharge Details Chief Complaint: ThroatFB Clinical Impression: Esophageal foreign body Primary Care Provider: Cristel Ramos ED Provider: Heather Oneil Home Meds and New Rx's Prescriptions: Continued Protonix [address] for susp in packet 40 mg PO DAILY RF: 0 ProAir RespiClick 90 MCG aerosol powdr breath activated 90 mcg Inhalation Q6H PRN RF: 0 triamcinolone acetonide 0.1 % Cream 1 applic TOPICAL BID RF: 0 hydrocortisone [Proctosol HC] 2.5 % cream with perineal applicator 1 applic PA BID-QID PRN (Reason: hemorrhoids) Qty: 28.35 RF: 0 Fiber (psyllium husk/sugar) 3.4 gram/11 gram powder 1 tbs PO DAILY Qty: 538 RF: 5 sucralfate [Carafate] 1 gram tablet 1 gm PO QACHS Qty: 120 RF: 0 Discharge Instructions Instructions: Esophageal Foreign Body (ED) Additional Instructions: Please return immediately to the emergency department he develop any new or worsening symptoms or if you become otherwise concerned. It is extremely important that you call soon as possible to make an appointment to be seen in follow-up by both surgery and your primary care doctor. Referrals: Beth Torres MD [[facility] STAFF PHYSICIAN] - Cristel Ramos MD [Primary Care Provider] - Medical Decision Making Richie Cortez is a 48 y/o man with h/o alcohol abuse, COPD, CVA, GERD, hypertension, hearing loss who presented to the emergency department with esophageal foreign body. On exam patient well and nontoxic appearing, although intermittently spitting secretions. No impending airway compromise. Exam/history not consistent with tracheal foreign body. Plan for screening images, screening labs. I discussed patient presentation with Dr. Torres of surgery, who requested patient receive trial of effervescent granules and outpatient follow-up with her if successful. Discussed plan with patient, including potential risk of perforation, however alternative plan of EGD also carries risk of perforation. Patient amenable to trial of effervescent granules. Imaging, labs negative. Trial of effervescent granules successful, patient had near immediate relief of foreign body sensation. Patient observed after administration, no further symptoms or complaints, feels well and at baseline. Patient now taking p.o. without issue. Plan for patient to follow-up 11/09/[address] Torres as she requested. I had a lengthy discussion with patient regarding return to emergency department precautions, importance of outpatient follow-up, and home care. Patient verbalized understanding the plan. Patient was discharged home with clear plan for outpatient follow-up. All questions were answered. Medical Records Medical records reviewed: Yes I reviewed the patient's medical records. Imaging Data Radiologic Study: Attestation: I personally reviewed and interpreted this imaging study as follows: Radiologist's impression: PORTABLE CHEST: [facility] The heart size is normal. The lungs appear clear. No foreign body is visible. IMPRESSION: Negative portable chest. No visible foreign body. SOFT TISSUE NECK: There is no radiopaque foreign body. There is no prevertebral soft tissue swelling. The epiglottis appears normal. Degenerative changes are seen in the cervical spine. IMPRESSION: No visible foreign body. Lab Data Lab results reviewed: Yes I reviewed the patient's lab results. Laboratory Tests Range/Units 11/06/18 11/06/18 11/06/18 13:40 13:40 13:40 WBC (4.4-10.8) k/cumm 6.72 RBC (4.50-6.00) m/cumm 4.70 Hgb (13.5-17.5) g/dL 15.7 Hct (40.0-50.0) % 44.5 MCV (80-95) fL 94.7 MCH (27.0-33.0) pg 33.4 H MCHC (32.0-36.0) g/dL 35.3 RDW (11.8-14.1) % 13.8 Plt Count (130-400) x1000/uL 256 MPV (8.0-11.0) fL 9.0 Immature Gran % 0.1 Neutrophils % 56.3 Lymphocytes % 30.8 Monocytes % 10.9 Eosinophils % 0.7 Basophils % 1.2 Absolute Neutrophils (1.2-6.7) k/cumm 3.78 Absolute Lymphocytes (1.2-3.4) k/cumm 2.07 Absolute Monocytes (0.11-0.7) k/cumm 0.73 H Absolute Eosinophils (0.0-0.7) k/cumm 0.05 Absolute Basophils (0.0-0.2) k/cumm 0.08 PT (9.3-11.0) sec 9.4 INR (0.9-1.1) 0.9 Sodium (136-145) mmol/L 143 Potassium (3.5-5.1) mmol/L 3.8 Chloride (98-107) mmol/L 105 Carbon Dioxide (21.0-32.0) mmol/L 25.9 Anion Gap (3-11) mmol/L 12.1 H BUN (7-18) mg/dL 4 L Creatinine (0.70-1.30) mg/dL 0.73 Estimated GFR/1.73 m2 (mL/min/1.73m2) >= 60.00 Glucose (70-100) mg/dL 104 H Calcium (8.5-10.1) mg/dL 8.4 L Total Bilirubin (0.2-1.0) mg/dL 0.3 AST (15-37) U/L 78 H ALT (12-78) U/L 88 H Alkaline Phosphatase (46-116) U/L 89 Total Protein (6.4-8.2) g/dL 7.5 Albumin (3.4-5.0) g/dL 3.8 HPI General Mode of arrival: ambulatory. Date/Time Provider Initiated Documentation: 11/06/18 13:41. Limitations to Documentation: no limitations. Information obtained by: patient, RN notes reviewed and old records reviewed. HPI Narrative: Richie Cortez is a 48-year-old man with a history of gastritis and esophagitis, hearing loss, COPD, CVA, hypertension, alcohol abuse presenting to the emergency department with esophageal foreign body. Patient reports that approximately half hour ago he was eating chicken and potatoes. He swallowed a piece of chicken, and felt that it got stuck in his throat. He has been unable to swallow fluids or secretions since that time. He has tried coughing with no change in sensation. He denies shortness of breath, vomiting, diarrhea, fever, recent illness. Was previously in his usual state of health. Related Data Home Medications Medication Instructions Recorded Confirmed ProAir RespiClick 90 mcg INHALATION Q6H PRN 09/22/17 09/19/18 Protonix 40 mg PO DAILY packet 09/22/17 09/19/18 triamcinolone acetonide 1 applic TOPICAL BID 02/15/18 09/19/18 Fiber (psyllium husk/sugar) 1 tbs PO DAILY #538 gm 09/19/18 hydrocortisone [Proctosol HC] 1 applic PA BID-QID PRN #28.35 gm 09/19/18 sucralfate [Carafate] 1 gm PO QACHS #120 tab 09/19/18 Previous Rx's Medication Instructions Recorded Fiber (psyllium husk/sugar) 1 tbs PO DAILY #538 gm 09/19/18 hydrocortisone [Proctosol HC] 1 applic PA BID-QID PRN #28.35 gm 09/19/18 sucralfate [Carafate] 1 gm PO QACHS #120 tab 09/19/18 Allergies Allergy/AdvReac Type Severity Reaction Status Date / Time ibuprofen Allergy Mild Hives Verified 11/06/18 13:39 lisinopril Allergy Unknown Verified 11/06/18 13:39 General Stated Complaint: ThroatFB DIANNA: 2 Review of Systems Review of Systems Constitutional: denies fevers Eyes: denies eye pain ENT: denies facial pain, dental pain, sore throat, reports foreign body sensation in throat Cardiovascular: denies chest pain Respiratory: denies SOB, cough GI: denies abdominal pain, vomiting, diarrhea : denies flank pain MSK: denies back pain, neck pain, arthralgias, myalgias Skin: denies rash Neuro: denies headaches, numbness, weakness [facility] Medical History Chronic anal fissure (Acute ~09/19/18) Colorectal polyp detected on colonoscopy (Acute ~09/19/18) Esophagitis (Acute ~09/19/18) Gastritis (Acute ~09/19/18) Encounter for screening colonoscopy (Acute) Gastroesophageal reflux disease (Chronic) Sensorineural hearing loss, bilateral (Acute 03/08/13) Right rotator cuff tendinitis (Acute 02/04/17) Otitis externa (Acute 03/22/13) Mixed conductive and sensorineural hearing loss (Acute 03/10/15) Mixed hearing loss, bilateral (Acute 03/22/13) Impacted cerumen (Acute 06/14/13) Chronic mastoiditis of both sides (Acute 03/20/15) Chronic mastoiditis (Acute 03/22/13) Arthrosis of right shoulder region (Acute 02/04/17) Optic atrophy, left eye (Chronic) Mature cataract (Resolved 02/20/18) Posterior subcapsular age-related cataract of left eye (Resolved 02/20/18) Bicuspid aortic valve (Acute) Cholesteatoma (Acute) Diarrhea (Acute) Elbow pain (Acute) History of corrected cleft lip and palate (Acute) Lumbosacral neuritis (Acute) Mastoiditis (Acute) Otitis externa (Acute) Papular urticaria (Acute) Alcoholism (Chronic) Allergic rhinitis (Chronic) Anxiety and depression (Chronic) COPD (chronic obstructive pulmonary disease) (Chronic) CVA (cerebral vascular accident) (Chronic) DJD (degenerative joint disease) (Chronic) Dyspnea on exertion (Chronic) GERD (gastroesophageal reflux disease) (Chronic) HTN (hypertension) (Chronic) Hearing loss (Chronic) Hemorrhoids (Chronic) Insomnia (Chronic) Right shoulder pain (Chronic) Tobacco use disorder (Chronic) TIA (transient ischemic attack) (Resolved) Surgical History H/O esophagogastroduodenoscopy (Chronic ~09/19/18) S/P colonoscopy (Acute ~09/19/18) History of cataract surgery (Chronic) Arthroscopy, Shoulder (Resolved) Tympanoplasty I (Resolved) Tympanoplasty II - IV (Resolved) Family History Other Asthma Cancer Diabetes Heart disease Social History Smoking/Tobacco Use Status: Current every day Tobacco Type: cigarettes Alcohol Intake: current Alcohol Intake frequency: 3 or more drinks per day Alcohol type: beer Drug use: Never Details: Pt states he is aware that he is to not drink alcohol or smoke today and DOS. Do you feel safe at home: Yes Do you feel safe in your relationship?: Yes Exam Narrative Exam Narrative: Constitutional: well and [id number], pleasant, conversing normally, spitting into emesis bag intermittently HENT: head atraumatic/normocephalic/normal inspection, mucous membranes moist, normal oropharynx without lesion or foreign body Eyes: conjunctiva normal, sclera normal, pupils 3mm b/l Neck: no stridor, normal ROM, trachea midline Chest: normal inspection Resp: normal work of breathing, LCTAB Cardio: normal rate, normal rhythm, no murmur appreciated Back: normal inspection, no rash Skin: warm, dry, normal color, no rash Neuro: alert, not altered, grossly non-focal, normal tone Psych: normal mood, normal affect, normal behavior Course Vital Signs Temperature 37.0 C 11/06/18 13:36 Pulse 103 H 11/06/18 13:36 Respiratory Rate 20 11/06/18 13:36 Blood Pressure 118/83 11/06/18 13:36 Pulse Oximetry 96 11/06/18 13:36 Temperature 37.0 C 11/06/18 13:36 Temperature Source Skin 11/06/18 13:36 Pulse 103 H 11/06/18 13:36 Respiratory Rate 20 11/06/18 13:36 Blood Pressure 118/83 11/06/18 13:36 Blood Pressure Position Sitting 11/06/18 13:36 Pulse Oximetry 96 11/06/18 13:36 Oxygen Delivery Method Room Air 11/06/18 13:36 Oxygen Flow Rate 0 11/06/18 13:36 Pain Level 8 11/06/18 13:36
--- NOTE | 2018-11-06 13:55 | ED.GENADUL_ITS ---
Discharge Plan Disposition Patient Disposition: HOME Condition: Stable Discharge Details Chief Complaint: ThroatFB Clinical Impression: Esophageal foreign body Primary Care Provider: Cristel Ramos ED Provider: Heather Oneil Home Meds and New Rx's Prescriptions: Continued Protonix [address] for susp in packet 40 mg PO DAILY RF: 0 ProAir RespiClick 90 MCG aerosol powdr breath activated 90 mcg Inhalation Q6H PRN RF: 0 triamcinolone acetonide 0.1 % Cream 1 applic TOPICAL BID RF: 0 hydrocortisone [Proctosol HC] 2.5 % cream with perineal applicator 1 applic IN BID-QID PRN (Reason: hemorrhoids) Qty: 28.35 RF: 0 Fiber (psyllium husk/sugar) 3.4 gram/11 gram powder 1 tbs PO DAILY Qty: 538 RF: 5 sucralfate [Carafate] 1 gram tablet 1 gm PO QACHS Qty: 120 RF: 0 Discharge Instructions Instructions: Esophageal Foreign Body (ED) Additional Instructions: Please return immediately to the emergency department he develop any new or worsening symptoms or if you become otherwise concerned. It is extremely important that you call soon as possible to make an appointment to be seen in follow-up by both surgery and your primary care doctor. Referrals: Beth Torres MD [[facility] STAFF PHYSICIAN] - Cristel Ramos MD [Primary Care Provider] - Medical Decision Making Richie Cortez is a 48 y/o man with h/o alcohol abuse, COPD, CVA, GERD, hypertension, hearing loss who presented to the emergency department with esophageal foreign body. On exam patient well and nontoxic appearing, although intermittently spitting secretions. No impending airway compromise. Exam/history not consistent with tracheal foreign body. Plan for screening images, screening labs. I discussed patient presentation with Dr. Torres of surgery, who requested patient receive trial of effervescent granules and outpatient follow-up with her if successful. Discussed plan with patient, including potential risk of perforation, however alternative plan of EGD also carries risk of perforation. Patient amenable to trial of effervescent granules. Imaging, labs negative. Trial of effervescent granules successful, patient had near immediate relief of foreign body sensation. Patient observed after administration, no further symptoms or complaints, feels well and at baseline. Patient now taking p.o. without issue. Plan for patient to follow-up 11/09/[address] Torres as she requested. I had a lengthy discussion with patient regarding return to emergency department precautions, importance of outpatient follow-up, and home care. Patient verbalized understanding the plan. Patient was discharged home with clear plan for outpatient follow-up. All questions were answered. Medical Records Medical records reviewed: Yes I reviewed the patient's medical records. Imaging Data Radiologic Study: Attestation: I personally reviewed and interpreted this imaging study as follows: Radiologist's impression: [facility]: [facility] The heart size is normal. The lungs appear clear. No foreign body is visible. IMPRESSION: Negative portable chest. No visible foreign body. SOFT TISSUE NECK: There is no radiopaque foreign body. There is no prevertebral soft tissue swelling. The epiglottis appears normal. Degenerative changes are seen in the cervical spine. IMPRESSION: No visible foreign body. Lab Data Lab results reviewed: Yes I reviewed the patient's lab results. Laboratory Tests Range/Units 11/06/18 11/06/18 11/06/18 13:40 13:40 13:40 WBC (4.4-10.8) k/cumm 6.72 RBC (4.50-6.00) m/cumm 4.70 Hgb (13.5-17.5) g/dL 15.7 Hct (40.0-50.0) % 44.5 MCV (80-95) fL 94.7 MCH (27.0-33.0) pg 33.4 H MCHC (32.0-36.0) g/dL 35.3 RDW (11.8-14.1) % 13.8 Plt Count (130-400) x1000/uL 256 MPV (8.0-11.0) fL 9.0 Immature Gran % 0.1 Neutrophils % 56.3 Lymphocytes % 30.8 Monocytes % 10.9 Eosinophils % 0.7 Basophils % 1.2 Absolute Neutrophils (1.2-6.7) k/cumm 3.78 Absolute Lymphocytes (1.2-3.4) k/cumm 2.07 Absolute Monocytes (0.11-0.7) k/cumm 0.73 H Absolute Eosinophils (0.0-0.7) k/cumm 0.05 Absolute Basophils (0.0-0.2) k/cumm 0.08 PT (9.3-11.0) sec 9.4 INR (0.9-1.1) 0.9 Sodium (136-145) mmol/L 143 Potassium (3.5-5.1) mmol/L 3.8 Chloride (98-107) mmol/L 105 Carbon Dioxide (21.0-32.0) mmol/L 25.9 Anion Gap (3-11) mmol/L 12.1 H BUN (7-18) mg/dL 4 L Creatinine (0.70-1.30) mg/dL 0.73 Estimated GFR/1.73 m2 (mL/min/1.73m2) >= 60.00 Glucose (70-100) mg/dL 104 H Calcium (8.5-10.1) mg/dL 8.4 L Total Bilirubin (0.2-1.0) mg/dL 0.3 AST (15-37) U/L 78 H ALT (12-78) U/L 88 H Alkaline Phosphatase (46-116) U/L 89 Total Protein (6.4-8.2) g/dL 7.5 Albumin (3.4-5.0) g/dL 3.8 HPI General Mode of arrival: ambulatory . Date/Time Provider Initiated Documentation: 11/06/18 13:41 . Limitations to Documentation: no limitations . Information obtained by: patient, RN notes reviewed and old records reviewed . HPI Narrative: Richie Cortez is a 48-year-old man with a history of gastritis and esophagitis, hearing loss, COPD, CVA, hypertension, alcohol abuse presenting to the emergency department with esophageal foreign body. Patient reports that approximately half hour ago he was eating chicken and potatoes. He swallowed a piece of chicken, and felt that it got stuck in his throat. He has been unable to swallow fluids or secretions since that time. He has tried coughing with no change in sensation. He denies shortness of breath, vomiting, diarrhea, fever, recent illness. Was previously in his usual state of health. Related Data Home Medications Medication Instructions Recorded Confirmed ProAir RespiClick 90 mcg INHALATION Q6H PRN 09/22/17 09/19/18 Protonix 40 mg PO DAILY packet 09/22/17 09/19/18 triamcinolone acetonide 1 applic TOPICAL BID 02/15/18 09/19/18 Fiber (psyllium husk/sugar) 1 tbs PO DAILY #538 gm 09/19/18 hydrocortisone [Proctosol HC] 1 applic IN BID-QID PRN #28.35 gm 09/19/18 sucralfate [Carafate] 1 gm PO QACHS #120 tab 09/19/18 Previous Rx's Medication Instructions Recorded Fiber (psyllium husk/sugar) 1 tbs PO DAILY #538 gm 09/19/18 hydrocortisone [Proctosol HC] 1 applic IN BID-QID PRN #28.35 gm 09/19/18 sucralfate [Carafate] 1 gm PO QACHS #120 tab 09/19/18 Allergies Allergy/AdvReac Type Severity Reaction Status Date / Time ibuprofen Allergy Mild Hives Verified 11/06/18 13:39 lisinopril Allergy Unknown Verified 11/06/18 13:39 General Stated Complaint: ThroatFB DIANNA: 2 Review of Systems Review of Systems Constitutional: denies fevers Eyes: denies eye pain ENT: denies facial pain, dental pain, sore throat, reports foreign body sensation in throat Cardiovascular: denies chest pain Respiratory: denies SOB, cough GI: denies abdominal pain, vomiting, diarrhea : denies flank pain MSK: denies back pain, neck pain, arthralgias, myalgias Skin: denies rash Neuro: denies headaches, numbness, weakness [facility] Medical History Chronic anal fissure (Acute ~09/19/18) Colorectal polyp detected on colonoscopy (Acute ~09/19/18) Esophagitis (Acute ~09/19/18) Gastritis (Acute ~09/19/18) Encounter for screening colonoscopy (Acute) Gastroesophageal reflux disease (Chronic) Sensorineural hearing loss, bilateral (Acute 03/08/13) Right rotator cuff tendinitis (Acute 02/04/17) Otitis externa (Acute 03/22/13) Mixed conductive and sensorineural hearing loss (Acute 03/10/15) Mixed hearing loss, bilateral (Acute 03/22/13) Impacted cerumen (Acute 06/14/13) Chronic mastoiditis of both sides (Acute 03/20/15) Chronic mastoiditis (Acute 03/22/13) Arthrosis of right shoulder region (Acute 02/04/17) Optic atrophy, left eye (Chronic) Mature cataract (Resolved 02/20/18) Posterior subcapsular age-related cataract of left eye (Resolved 02/20/18) Bicuspid aortic valve (Acute) Cholesteatoma (Acute) Diarrhea (Acute) Elbow pain (Acute) History of corrected cleft lip and palate (Acute) Lumbosacral neuritis (Acute) Mastoiditis (Acute) Otitis externa (Acute) Papular urticaria (Acute) Alcoholism (Chronic) Allergic rhinitis (Chronic) Anxiety and depression (Chronic) COPD (chronic obstructive pulmonary disease) (Chronic) CVA (cerebral vascular accident) (Chronic) DJD (degenerative joint disease) (Chronic) Dyspnea on exertion (Chronic) GERD (gastroesophageal reflux disease) (Chronic) HTN (hypertension) (Chronic) Hearing loss (Chronic) Hemorrhoids (Chronic) Insomnia (Chronic) Right shoulder pain (Chronic) Tobacco use disorder (Chronic) TIA (transient ischemic attack) (Resolved) Surgical History H/O esophagogastroduodenoscopy (Chronic ~09/19/18) S/P colonoscopy (Acute ~09/19/18) History of cataract surgery (Chronic) Arthroscopy, Shoulder (Resolved) Tympanoplasty I (Resolved) Tympanoplasty II - IV (Resolved) Family History Other Asthma Cancer Diabetes Heart disease Social History Smoking/Tobacco Use Status: Current every day Tobacco Type: cigarettes Alcohol Intake: current Alcohol Intake frequency: 3 or more drinks per day Alcohol type: beer Drug use: Never Details: Pt states he is aware that he is to not drink alcohol or smoke today and DOS. Do you feel safe at home: Yes Do you feel safe in your relationship?: Yes Exam Narrative Exam Narrative: Constitutional: well and [id number], pleasant, conversing normally, spitting into emesis bag intermittently HENT: head atraumatic/normocephalic/normal inspection, mucous membranes moist, normal oropharynx without lesion or foreign body Eyes: conjunctiva normal, sclera normal, pupils 3mm b/l Neck: no stridor, normal ROM, trachea midline Chest: normal inspection Resp: normal work of breathing, LCTAB Cardio: normal rate, normal rhythm, no murmur appreciated Back: normal inspection, no rash Skin: warm, dry, normal color, no rash Neuro: alert, not altered, grossly non-focal, normal tone Psych: normal mood, normal affect, normal behavior Course Vital Signs Temperature 37.0 C 11/06/18 13:36 Pulse 103 H 11/06/18 13:36 Respiratory Rate 20 11/06/18 13:36 Blood Pressure 118/83 11/06/18 13:36 Pulse Oximetry 96 11/06/18 13:36 Temperature 37.0 C 11/06/18 13:36 Temperature Source Skin 11/06/18 13:36 Pulse 103 H 11/06/18 13:36 Respiratory Rate 20 11/06/18 13:36 Blood Pressure 118/83 11/06/18 13:36 Blood Pressure Position Sitting 11/06/18 13:36 Pulse Oximetry 96 11/06/18 13:36 Oxygen Delivery Method Room Air 11/06/18 13:36 Oxygen Flow Rate 0 11/06/18 13:36 Pain Level 8 11/06/18 13:36
[2018-11-06 14:00] LABS: Abs Immature Grans 0.01 k/cumm (0.0-0.09); Absolute Basophil Count 0.08 k/cumm (0.0-0.2); Absolute Eosinophil Count 0.05 k/cumm (0.0-0.7); Absolute Lymphocyte Count 2.07 k/cumm (1.2-3.4); Absolute Monocyte Count 0.73 k/cumm (0.11-0.7); Absolute Neutrophil Count 3.78 k/cumm (1.2-6.7); Basophils % 1.2; Eosinophils % 0.7; HCT 44.5 % (40.0-50.0); HGB 15.7 g/dL (13.5-17.5); Immature Grans % 0.1; Lymphocytes % 30.8; Mean Corp. HGB Concentration 35.3 g/dL (32.0-36.0); Mean Corpuscular Hemoglobin 33.4 pg (27.0-33.0); Mean Corpuscular Volume 94.7 fL (80-95); Monocytes % 10.9; Neutrophils % 56.3; Platelet Count 256 x1000/uL (130-400); RBC Distribution Width 13.8 % (11.8-14.1); White Blood Cell Count 6.72 k/cumm (4.4-10.8)
--- NOTE | 2018-11-06 14:07 | DI.RAD_ITS ---
SYMPTOMS/DIAGNOSIS: ESOPHAGEAL FOREIGN BODY PORTABLE CHEST: Comparison is made with [id number]. The heart size is normal. The lungs appear clear. No foreign body is visible. IMPRESSION: Negative portable chest. No visible foreign body. SOFT TISSUE NECK: There is no radiopaque foreign body. There is no prevertebral soft tissue swelling. The epiglottis appears normal. Degenerative changes are seen in the cervical spine. IMPRESSION: No visible foreign body.
[2018-11-06 14:09] LABS: INR 0.9 (0.9-1.1); Prothrombin Time 9.4 sec (9.3-11.0)
[2018-11-06 14:17] LABS: ALT 88 U/L (12-78); AST 78 U/L (15-37); Albumin 3.8 g/dL (3.4-5.0); Alkaline Phosphatase 89 U/L (46-116); Anion Gap 12.1 mmol/L (3-11); BUN 4 mg/dL (7-18); Bilirubin, Total 0.3 mg/dL (0.2-1.0); CO2 25.9 mmol/L (21.0-32.0); CREATININE 0.73 mg/dL (0.70-1.30); Calcium 8.4 mg/dL (8.5-10.1); Chloride 105 mmol/L (98-107); Glucose 104 mg/dL (70-100); Potassium 3.8 mmol/L (3.5-5.1); Sodium 143 mmol/L (136-145); Total Protein 7.5 g/dL (6.4-8.2)
== END 2018-11-06 15:30 | disposition home or self-care (01) ==
PROVIDERS: Emergency Provider Student in an Organized Health Care Education/Training Program; PCP Family Medicine
DX: T18.108A Unspecified foreign body in esophagus causing other injury, initial encounter (principal); I10 Essential (primary) hypertension; J44.9 Chronic obstructive pulmonary disease, unspecified
CPT/HCPCS: 36415; 80053; 99284; 70360; 71045; 85025; 85610

== ENCOUNTER 2019-01-05 04:09 | Outpatient (CLI) | payer MEDICAID, SELFPAY ==
--- NOTE | 2019-01-05 | PFT_ITS ---
PULMONARY FUNCTION TEST REPORT Patient - Richie Cortez DATE OF SERVICE January 05, 2019 REQUESTING PROVIDER Cristel Ramos M.D. INTERPRETATION OF STUDY Spirometry shows mild obstructive airways disease with no significant bronchodilator response. LUNG VOLUMES - Lung volumes show no evidence of restriction. DIFFUSION CAPACITY- Normal. AIRWAY RESISTANCE - Normal. IMPRESSION Mild obstructive airways disease with no significant bronchodilator response. Clinical correlation recommended. When this study was compared to previous ones from 10/09/08, 07/30/11, 08/21/14, 06/02/16, 04/18/17, 08/24/18, the patient has an initial decline in FVC and then a subsequent increase with the highest number measured at the current PFT. FEV1 had a slight decline over time, but has stabilized since 2017. Clinical correlation recommended. Fatmata Bello M.D. VAUGHN/ T- 01/08/2019
[2019-01-05] MEDS: Inhaler, Assist Device 1 EACH MC (10:34)
[2019-01-05] MEDS: Albuterol HFA 18 GM 200 PUFF INH IH (10:35)
== END 2019-01-05 04:29 ==
PROVIDERS: PCP Family Medicine; Visit Provider Family Medicine
DX: J44.9 Chronic obstructive pulmonary disease, unspecified (principal); R06.09 Other forms of dyspnea; F17.200 Nicotine dependence, unspecified, uncomplicated
CPT/HCPCS: 94060; 94150; 94726; 94729

== ENCOUNTER 2019-03-06 01:29 | Outpatient (CLI) | payer MEDICAID, SELFPAY ==
--- NOTE | 2019-03-06 10:30 | DI.US_ITS ---
APPROVED REPORT Conclusion Left Ventricle : The left ventricle is normal size. Left ventricular systolic function is mildly decr eased. Borderline concentric left ventricular hypertrophy. There is normal LV segmental wall motion. Grade 1 diastolic dysfunction LVEF is 45-50%. Right Ventricle : The right ventricle is normal size. The right ventricular systolic function is norm al. Atria : The left atrium size is normal. The right atrium size is normal. Aortic Valve : The Aortic valve is sclerotic with focal thickening known prior. Right and left coron angelito cusps are fused. Aortic valve is bicuspid. Moderate aortic stenosis (DOROTHY by Vmax=1.26cm2). Trace aortic regurgitation. Mitral Valve : Mitral valve leaflets are mildly thickened. Trivial mitral regurgitation. Tricuspid Valve : The tricuspid valve is normal in structure. Trace to mild tricuspid regurgitation. Pulmonic Valve : Trace pulmonic regurgitation. Pulmonic valve is not well visualized. Great Vessels : IVC is normal in size and collapses >50% with inspiration. Compared to echocardiogram dated 06/07/2016 the patient's ejection fraction is now mildly decreased. Aortic valve area as calculated by V-max has decreased from 1.5 cm??? to 1.26 cm???. There were no o ther significant change EXAM: Comprehensive 2D, Doppler, and color-flow Echocardiogram Patient Location: Out-Patient [employer]: Leni Cohen RUST (AE) Indications: bicuspid aortic valve-repeat echo 2019 q23.1, Dyspnea on exertion r06.09, alcoholism f10 .20. worsening CRONIN. known due to bicuspid AOV Left Ventricle The left ventricle is normal size. Left ventricular systolic function is mildly decreased. Borderline concentric left ventricular hypertrophy. There is normal LV segmental wall motion. Grade 1 diastolic dysfunction LVEF is 45-50%. Right Ventricle The right ventricle is normal size. The right ventricular systolic function is normal. Atria The left atrium size is normal. The right atrium size is normal. Aortic Valve The Aortic valve is sclerotic with focal thickening known prior. Right and left coronary cusps are fu sed. Aortic valve is bicuspid. Moderate aortic stenosis (DOROTHY by VTI=1.22cm2, by Vmax 1.26cm2). Trace aortic regurgitation. Mitral Valve Mitral valve leaflets are mildly thickened. No evidence of mitral valve stenosis. Trivial mitral regu rgitation. Tricuspid Valve The tricuspid valve is normal in structure. Trace to mild tricuspid regurgitation. Pulmonic Valve Pulmonic valve is not well visualized. Trace pulmonic regurgitation. Great Vessels The aortic root is normal in size. IVC is normal in size and collapses >50% with inspiration. Pericardium There is no pericardial effusion. 2D Dimensions IVSd 1.09 cm M: 0.6-1.2 LV EDV A2C 73.80 mL PWd 1.13 cm M: 0.6 - 1.2 LV EDV A4C 84.30 mL LVDd 4.70 cm M: 4.2 - 5.9 LA Volume Index A2C 17.75 mL/m2 LVDs 3.33 cm M: 2.5 - 4.0 LA Volume Index A4C 24.07 mL/m2 Aortic Root 3.76 cm M: 3.1 - 3.7 LA Volume Index Biplane 20.89 mL/m2 RA Area A4C 14.63 cm2 LA Area A4C 15.83 cm2 LVOT 2.30 cm (M/F) 1.5-2.5 LA Area A2C 13.45 cm2 Ascending Aorta 3.19 cm M: 2.6 - 3.4 EF AP4 46.03 % LVEF (Teich) 55.95 % EF AP2 48.10 % LVEF (Vu's) 46.98 % M: 52 - 72 EF BP 46.98 % LV Volume 61.35 mL M: 62 - 150 LV Volume Index 34.66 mL/m2 M: 34 - 74 FS 29.16 % LV Diastology E/A Ratio 1.0 MED E' 0.10 (>0.07 m/s) LV E/e MED 4.84 (<14) LAT E' 0.08 (>0.1 m/s) LV E/e LAT 6.15 (<14) Aortic Valve LVOT Area 4.16 cm2 LVOT Peak Kevan. 0.72 m/s LVOT Mean Kevan. 0.54 m/s LVOT Peak Gr. 2.06 mmHg DOROTHY Vmax Index 0.71 cm2/m2 LVOT Mean Gr. 1.31 mmHg LVOT VTI 0.14 m DOROTHY Mean Kevan. Index 0.76 cm2/m2 AoV Peak Kevan. 2.36 (0.5-1.3 m/s) AoV Mean Kevan. 1.68 m/s AO Peak GR. 22.33 mmHg AO Mean GR. 12.51 (<5 mmHg) AO VTI 0.46 (0.18-0.25 m) DOROTHY (VTI) 1.22 (2.5-4.5 cm2) DOROTHY (VTI) Index 0.69 cm/m2 Mitral Valve MV E Max Kevan. 0.47 (0.4-1.3 m/s) MV A Velocity 0.46 (0.4-1.3 m/s) E/A Ratio 1.04 MV Decel. Time 316.89 (160-240 msec) MV PHT 91.90 msec MVA PHT 2.39 cm2 Tricuspid Valve TR P. Velocity 2.16 m/s TV Regurg Vmax 2.16 m/s TR P. Gradient 18.72 mmHg
== END 2019-03-06 01:49 ==
PROVIDERS: PCP Family Medicine; Visit Provider Family Medicine
DX: R06.09 Other forms of dyspnea (principal); I35.2 Nonrheumatic aortic (valve) stenosis with insufficiency; I50.1 Left ventricular failure, unspecified; I10 Essential (primary) hypertension; F10.20 Alcohol dependence, uncomplicated
CPT/HCPCS: 93306

== ENCOUNTER 2019-03-21 02:04 | Outpatient (CLI) | payer MEDICAID, SELFPAY ==
--- NOTE | 2019-03-21 08:37 | DI.RAD_ITS ---
EXAM: RF BARIUM SWALLOW CLINICAL HISTORY: DYSPHAGIA,R13.10,LOPEZ'S ESOPHAGUS,K22.70,SMOKER, ALCOHOL ABUSE TECHNIQUE: The exam was performed according to the usual protocol. FLUORO TIME: 0 seconds COMPARISON: XR PORTABLE CHEST AP from 11/06/2018 FINDINGS: Preliminary films of the chest and neck are unremarkable. Barium was ingested and showed normal esop hageal motility. Minimal irregularity of the esophageal wall noted from mid esophagus to the distal esophagus which is a nonspecific finding. Please correlate with recent EGD results. No evidence of a stricture. Minimal sliding axial hiatus hernia noted. IMPRESSION: Question slight mucosal/wall irregularity of the mid to distal esophagus, this may correlate with the patient's reported diagnosis of Lopez's esophagus. Small hiatal hernia noted. No evidence of esophageal stricture or obstruction.
== END 2019-03-21 02:24 ==
PROVIDERS: PCP Family Medicine; Visit Provider Surgery
DX: R13.19 Other dysphagia (principal); K22.70 Barrett's esophagus without dysplasia; K44.9 Diaphragmatic hernia without obstruction or gangrene
CPT/HCPCS: 74220

== ENCOUNTER 2019-05-18 08:06 | Outpatient (CLI) | payer MEDICAID, SELFPAY | END 2019-05-18 08:26 | PROVIDERS: PCP Family Medicine; Visit Provider Internal Medicine Cardiovascular Disease | DX: R06.02 Shortness of breath (principal); E78.00 Pure hypercholesterolemia, unspecified; F17.200 Nicotine dependence, unspecified, uncomplicated; Q23.1 Congenital insufficiency of aortic valve; R06.09 Other forms of dyspnea | CPT/HCPCS: 36415; 80053; 80061; 83880; 93005; 93010 ==

== ENCOUNTER 2019-05-18 12:25 | Outpatient (CLI) | payer MEDICAID, SELFPAY ==
[2019-05-18 13:34] LABS: ALT 43 U/L (16-63); AST 30 U/L (15-37); Albumin 4.1 g/dL (3.4-5.0); Alkaline Phosphatase 101 U/L (46-116); Anion Gap 11.3 mmol/L (3-11); BUN 8 mg/dL (7-18); Bilirubin, Total 0.5 mg/dL (0.2-1.0); CO2 27.7 mmol/L (21.0-32.0); CREATININE 0.71 mg/dL (0.70-1.30); Calcium 9.6 mg/dL (8.5-10.1); Calculated LDL 183 mg/dL; Chloride 98 mmol/L (98-107); Cholesterol 298 mg/dL (<200); Glucose 102 mg/dL (74-106); HDL Cholesterol 74 mg/dL (40-60); Potassium 4.1 mmol/L (3.5-5.1); Sodium 137 mmol/L (136-145); Total Protein 7.7 g/dL (6.4-8.2); Triglyceride 208 mg/dL (<150)
[2019-05-18 13:54] LABS: NT-proBNP 134 pg/mL (<300)
== END 2019-05-18 12:45 ==
PROVIDERS: PCP Family Medicine; Visit Provider Internal Medicine Cardiovascular Disease
DX: E78.00 Pure hypercholesterolemia, unspecified; R06.02 Shortness of breath; R06.09 Other forms of dyspnea; F17.200 Nicotine dependence, unspecified, uncomplicated
CPT/HCPCS: 36415; 80053; 80061; 83880

== ENCOUNTER 2019-05-28 00:51 | Outpatient (CLI) | payer MEDICAID, SELFPAY ==
--- NOTE | 2019-05-28 10:24 | DI.NM_ITS ---
APPROVED REPORT Exam: Exercise Treadmill Patient Location: Out-Patient Room/Bed: Stress Nurse: Effie Davalos RN BMI: 21.11 Baseline Rhythm: Sinus Rhythm Indications: Patient reports dyspnea on exertion for the past ???3-4 years??? that has been getting w orse over ???the last couple years???. Medical History Medical History: EF 45-50%, GERD, Vázquez???s Esophagus, Alcoholism, Anxiety, Depression. Cardiac Medications: None Allergies: Lisinopril, Ibuprofen. Cardiac Risk Factors: FHX of CAD, HTN, Hyperlipidemia, COPD, Smoking Previous Cardiac Procedures: None Pretest Chest Pain Characteristics: None Exercise History: Sedentary Physical Disabilities: None Lung Sounds: Clear to auscultation Heart Sounds: Regular Stress Test Details Test: Exercise stress testing was performed using a Colt protocol. Rest Stress HR Max Heart Rate (APMHR): 169 bpm Resting HR Supine: 67 bpm Target HR (85% APMHR): 143 bpm Resting HR Standin bpm Max HR Achieved: 160 bpm % of APMHR: 94 HR response to stress: Normal HR response to stress BP Resting BP Supine: 140/80 mmHg Resting BP Standin/100 mmHg Max BP: 152/88 mmHg BP response to stress: Normal blood pressure response to stress. ECG Resting ECG: Sinus Rhythm ST Change: Normal Ectopy: none Stress ECG: Sinus Tachycardia ST Change: No significant ST segment changes noted. Arrhythmia: None Recovery ECG: Sinus Rhythm Recovery ST Change: Normal Recovery Arrhythmia: None Clinical Reason for Termination: Fatigue, Dyspnea, Knee pain Stress Symptoms: None Exercise duration: 4 min54 sec Highest Stage Achieved: Stage 2: 2.5 mph at 12% grade. Exercise capacity: 6.91 METs Functional Capacity: Moderately diminished capacity Stress ECG Conclusion 1. The patient exercised for 4 minutes and 54 seconds (6.9 METS). Exercise was stopped due to fatigu e and knee pain. 2. This represents a moderately diminished exercise capacity. 3. The patient achieved 94% of her target heart rate and a rate-pressure product of 24,000. 4. There was no evidence of ischemia on the ECG portion of this exam. Protocol Used: Colt Protocol Stress Test Summary STAGE Time (mins) Speed (mph) Grade (%) HR BP SYMPTOMS METS Supine 67 140/80 Standing 80 140/100 1 3 1.7 10 148 152/88 4.6 2 6 2.5 12 7 3 9 3.4 14 10.2 4 12 4.2 16 12.9 5 15 5.0 18 17.2 1 min recovery 140 130/80 3 min recovery 96 140/82 6 min recovery 70 122/82 MPI Conclusion Patient's ejection fraction was 41% during stress. There were no significant wall motion abnormaliti es. There was a very small partially reversible perfusion defect noted in the apex. This signifies a mildly positive SPECT stress test. Radiologist Interpretation Radiologist Interpretation by: Trell Smiley MD Interpretation Date/Time: 05/29/2019 13:34:17
== END 2019-05-28 01:11 ==
PROVIDERS: PCP Family Medicine; Visit Provider Internal Medicine Cardiovascular Disease
DX: R06.09 Other forms of dyspnea (principal); I10 Essential (primary) hypertension; E78.5 Hyperlipidemia, unspecified; F41.8 Other specified anxiety disorders; K21.9 Gastro-esophageal reflux disease without esophagitis; F17.200 Nicotine dependence, unspecified, uncomplicated; Z82.49 Family history of ischemic heart disease and other diseases of the circulatory system
CPT/HCPCS: 78452; 93017

== ENCOUNTER 2019-11-16 08:01 | Outpatient (CLI) | payer MEDICAID, SELFPAY ==
[2019-11-21 21:58] LABS: SARS-CoV-2 RNA Undetected (Undetected); SARS-CoV-2 Specimen Source Nasopharynx
== END 2019-11-16 08:21 ==
PROVIDERS: PCP Family Medicine; Visit Provider Family Medicine
DX: R05 Cough (principal)
CPT/HCPCS: U0003

== ENCOUNTER 2019-12-16 04:16 | Emergency (ER) | payer MEDICAID, SELFPAY ==
[2019-12-16] VITALS (19 sets, daily range): BP systolic 107–126; BP diastolic 62–68; PULSE 58–91; RESP 12–28; TEMP 36.8; O2SAT 95–99
--- NOTE | 2019-12-16 04:15 | DI.CT_ITS ---
EXAM: CT CHEST PE CTA CLINICAL HISTORY: severe R CP, r/o PE/Dissection TECHNIQUE: COMPARISON: CT ABD PELVIS WITH CONTRAST from 12/16/2015 FINDINGS: CT angiography of the chest was performed with bolus infusion of 61 cc of Omnipaque 350. Images obta ined through the upper abdomen are unremarkable. No thoracic aortic dissection or aneurysm. No cent ral pulmonary embolus identified examination is due motion artifact. There is a small right sided pn eumothorax. No left pneumothorax. No significant pleural effusion. Tracheobronchial tree appears i ntact. IMPRESSION: Small right pneumothorax. No evidence of pulmonary embolic disease or aortic dissection or aneurysm.
--- NOTE | 2019-12-16 04:15 | RT.EKG_ITS ---
APPROVED REPORT Exam: Resting ECG Patient Location: E HR:92 bpm ECG Measurements Heart Rate 92 AXIS UT 156 P 58 QRSd 97 QRS 67 QT 342 T -31 QTc 424 <Conclusion> EKG 4: 21 Sinus rhythm, rate 92, no significant ST elevations or depressions, intervals normal, no evidence of STEMI, no significant Q waves
--- NOTE | 2019-12-16 04:21 | ED.GENADUL_ITS ---
Discharge Plan Disposition Patient Disposition: HOME Condition: Good Discharge Details Chief Complaint: Chest Pain Clinical Impression: Alcohol intoxication, Pneumothorax Primary Care Provider: Cristel Ramos ED Provider: Olivia Campbell Home Meds and New Rx's Prescriptions: Continued atorvastatin 20 mg tablet 20 mg PO DAILY Qty: 90 RF: 6 metoprolol tartrate 25 mg tablet 25 mg PO BID Qty: 180 RF: 6 omeprazole 40 mg capsule,delayed release(DR/EC) 40 mg PO BID Qty: 60 RF: 3 ProAir RespiClick 90 MCG aerosol powdr breath activated 90 mcg Inhalation Q6H PRN RF: 0 budesonide-formoterol [Symbicort] 80-4.5 mcg/actuation HFA aerosol inhaler 2 puff IH BID RF: 0 hydrocortisone 2.5 % cream 1 applic TP BID PRNRF: 0 triamcinolone acetonide 0.1 % Cream 1 applic TOPICAL BID RF: 0 hydrocortisone [Proctosol HC] 2.5 % cream with perineal applicator 1 applic GA BID-QID PRN (Reason: hemorrhoids) Qty: 28.35 RF: 0 Discharge Instructions Instructions: Spontaneous Pneumothorax (ED), Alcohol Intoxication (ED) Additional Instructions: You had a small pneumothorax in your chest which is a small pop in your lung, this is resolved after the supplemental oxygen that we gave you for the extended period of time here in the ED. Please follow-up closely with your primary care provider. Please take 1000 mg of Tylenol every 6 hours as needed. If you notice any worsening of your symptoms, or any new symptoms such as vomiting, diarrhea, fever, chills, shortness of breath, chest pain, numbness, weakness, or fainting , please return immediately to the emergency department for reevaluation. Please follow up with your primary care provider as soon as possible for reassessment and reevaluation. As always, it was a pleasure participating in your medical care today. Referrals: Cristel Ramos MD [Primary Care Provider] - Discharge Data Discharge Date/Time-TO BE ENTERED AT DEPARTURE: 12/16/19 09:35 Medical Decision Making <Yosef Toribio DO - Last Filed: 12/16/19 08:17> 49-year-old male with a past medical history of stroke, high cholesterol, esophagitis, gastritis, hypertension, presents today for evaluation of chest pain. He presents via EMS stating that sometime earlier this evening he developed sharp right-sided chest pain, he is a notably challenging historian, and has difficulty focusing on the questions at hand and his current state of chest pain. He states that the pain is pleuritic, he has had a cough but denies any fever or chills. He denies any tearing or ripping sensation. He denies any IV or illicit drug use. He denies any hemoptysis or history of clot s. He denies any history of RI. Uncertain if there is exam and exertional component. He does not recall having any events like this in the past. No other complaints at this time. No other modifying factors. Physical exam is unremarkable, no reproducible chest pain, radial pulses equal bilaterally. Symptoms appearing consistent with dissection at this time, ACS or PE are on the differential. Dissection notably less likely. Musculoskeletal component could also be a cause of his pain, however the challenging historical component in conjunction with the patient's current intoxication certainly makes the entire clinical picture more obfuscated. We will treat his pain, evaluate for acute life-threatening chest etiology, monitor closely and reassess. [address] scan demonstrates evidence of a very small pneumothorax, approximately 5%. No other signs of significant trauma, EKG negative for evidence of cardiac STEMI, troponin normal. Signs and symptoms are likely clinically consistent with his small spontaneous pneumothorax. With the size being only 5%, no indication for chest tube. We will place the patient on high flow oxygen 12 L via the nonrebreather for reinflation. I feel if repeat imaging shows no evidence of pneumothorax after oxygen and he would be stable for discharge. 8:12 AM Repeat x-ray results have returned, no evidence of pneumothorax. Patient's oxygenation remains notably stable, chest pain improved, serial troponins negative. The remainder the patient's laboratory work-up is otherwise stable at this point. No evidence of infectious etiology clinically. Tox screen negative. Alcohol level was 265 upon arrival at 4 AM, patient is certainly sobering up, but I do feel good benefit from a little bit more time to achieve total clinical sobriety. Patient will remain here in the ER and be reassessed by my colleague Olivia Rogers for clinical sobriety. Otherwise patient at this time is stable for discharge with no evidence of maintain pneumothorax, no signs of hypoxemia, or acute cardiac etiology. I have extensively reviewed the treatment plan and discharge instructions with the patient. I have addressed all patient concerns at this time. The patient was made aware of what symptoms to monitor for that would warrant a return to the emergency department. Discussed the plan with the patient, they demonstrate verbal understanding and agreement with our assessment and plan at this time. EKG 4: 21 Sinus rhythm, rate 92, no significant ST elevations or depressions, intervals normal, no evidence of STEMI, no significant Q waves. FINDINGS: Limited due to motion artifact No large pulmonary emboli observed. Limited evaluation for small emboli predominantly in the lower lobes. No aortic dissection or aneurysm Right-sided small pneumothorax observed measuring approximately 5%. No focal consolidation. No pleural effusion. Limited evaluation for fractures due to motion artifact. No gross fracture detected Mild cardiomegaly. No pericardial effusion The visualized upper abdomen is unremarkable IMPRESSION: Right-sided small pneumothorax as described. Limited evaluation for rib fractures due to motion artifact. No gross fracture No large pulmonary emboli No aortic dissection Thank you for allowing us to participate in the care of your patient. Dictated and Authenticated by: Frandy Marte MD 12/16/2019 5:41 AM Eastern Time ([place] & [place]) FINDINGS: Lungs: Hyperinflation and interstitial prominence. Pleural space: CT detected pneumothorax is not clearly visualized on the radiographs obtained. Heart/Mediastinum: No cardiomegaly. Bones/joints: Degenerative change . IMPRESSION: Hyperinflation and interstitial prominence. Thank you for allowing us to participate in the care of your patient. Dictated and Authenticated by: Colt Avina MD 12/16/2019 8:03 AM Eastern Time ([place] & [place]) <LUISA Ramos - Last Filed: 12/16/19 16:29> Care transition to myself from Dr. Toribio. Please see his initial note for history, presentation and work-up thus far. In brief, patient is a 49-year-old gentleman who came in with right-sided pleuritic chest discomfort. He was found to have a small pneumothorax. This is since resolved. He has had 2- troponins. Plan was for patient to be able to sober up in the department and then be discharged home. Patient is requesting discharge. Does appear clinically sober. I do feel that it is safe for him to be discharged time. Will follow instructions set forth by Dr. Toribio. All his questions or concerns were addressed. I did reiterate return precautions with the patient. He voiced understanding. He will follow- up closely with primary care as directed. HPI <Yosef Toribio, DO - Last Filed: 12/16/19 08:17> General Date/Time Provider Initiated Documentation: 12/16/19 04:20 . HPI Narrative: 49-year-old male with a past medical history of stroke, high cholesterol, esophagitis, gastritis, hypertension, presents today for evaluation of chest pain. He presents via EMS stating that sometime earlier this evening he developed sharp right-sided chest pain, he is a notably challenging historian, and has difficulty focusing on the questions at hand and his current state of chest pain. He states that the pain is pleuritic, he has had a cough but denies any fever or chills. He denies any tearing or ripping sensation. He denies any IV or illicit drug use. He denies any hemoptysis or history of clots. He denies any history of RI. Uncertain if there is exam and exertional component. He does not recall having any events like this in the past. No other complaints at this time. No other modifying factors. Related Data Home Medications Medication Instructions Recorded Confirmed ProAir RespiClick 90 mcg INHALATION Q6H PRN 09/22/17 12/16/19 triamcinolone acetonide 1 applic TOPICAL BID 02/15/18 12/16/19 hydrocortisone [Proctosol HC] 1 applic GA BID-QID PRN #28.35 gm 09/19/18 12/16/19 omeprazole 40 mg capsule,delayed 40 mg PO BID #60 cap 11/10/18 12/16/19 release budesonide-formoterol HFA 80 2 puff IH BID 05/14/19 12/16/19 mcg-4.5 mcg/actuation aerosol inhaler hydrocortisone 2.5 % topical cream 1 applic TP BID PRN 05/14/19 12/16/19 atorvastatin 20 mg tablet 20 mg PO DAILY #90 tab NS 06/28/19 12/16/19 metoprolol tartrate 25 mg tablet 25 mg PO BID #180 tab NS 06/28/19 12/16/19 Previous Rx's Medication Instructions Recorded hydrocortisone [Proctosol HC] 1 applic GA BID-QID PRN #28.35 gm 09/19/18 omeprazole 40 mg capsule,delayed 40 mg PO BID #60 cap 11/10/18 release atorvastatin 20 mg tablet 20 mg PO DAILY #90 tab NS 06/28/19 metoprolol tartrate 25 mg tablet 25 mg PO BID #180 tab NS 06/28/19 Allergies Allergy/AdvReac Type Severity Reaction Status Date / Time ibuprofen Allergy Mild Hives Verified 12/16/19 04:30 lisinopril Allergy Unknown Verified 12/16/19 04:30 General Stated Complaint: Chest Pain DIANNA: 3 Review of Systems <Yosef Toribio DO - Last Filed: 12/16/19 08:17> All systems reviewed & are unremarkable except as noted in HPI and below PFSH <Yosef Toribio DO - Last Filed: 12/16/19 08:17> Medical History Alcoholism (Chronic) Allergic rhinitis (Chronic) Anxiety and depression (Chronic) Arthrosis of right shoulder region (Acute 02/04/17) 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 (Acute) Bicuspid aortic valve (Acute) Cholesteatoma (Acute) Chronic anal fissure (Acute ~09/19/18) Chronic mastoiditis (Acute 03/22/13) Chronic mastoiditis of both sides (Acute 03/20/15) Colorectal polyp detected on colonoscopy (Acute ~09/19/18) COPD (chronic obstructive pulmonary disease) (Chronic) CVA (cerebral vascular accident) (Chronic) Diarrhea (Acute) DJD (degenerative joint disease) (Chronic) Dyspnea on exertion (Chronic) Elbow pain (Acute) Encounter for screening colonoscopy (Acute) Esophagitis (Acute ~09/19/18) Gastritis (Acute ~09/19/18) Gastroesophageal reflux disease (Chronic) GERD (gastroesophageal reflux disease) (Chronic) Hearing loss (Chronic) Hemorrhoids (Chronic) History of corrected cleft lip and palate (Acute) HTN (hypertension) (Chronic) Impacted cerumen (Acute 06/14/13) Insomnia (Chronic) Lumbosacral neuritis (Acute) Mastoiditis (Acute) Mature cataract (Resolved 02/20/18) Mixed conductive and sensorineural hearing loss (Acute 03/10/15) Mixed hearing loss, bilateral (Acute 03/22/13) Optic atrophy, left eye (Chronic) Otitis externa (Acute) Otitis externa (Acute 03/22/13) Papular urticaria (Acute) Posterior subcapsular age-related cataract of left eye (Resolved 02/20/18) Right rotator cuff tendinitis (Acute 02/04/17) Right shoulder pain (Chronic) Sensorineural hearing loss, bilateral (Acute 03/08/13) TIA (transient ischemic attack) (Resolved) Tobacco use disorder (Chronic) Surgical History Arthroscopy, Shoulder (Resolved) History of cataract surgery (Chronic) S/P colonoscopy (Acute ~09/19/18) Tympanoplasty I (Resolved) Tympanoplasty II - IV (Resolved) Family History Other Asthma Cancer Diabetes Heart disease Social History Smoking/Tobacco Use Status: Current every day Tobacco Type: cigarettes Years smoked: 40 Counseling given: counseling >3 minutes Alcohol Intake: current Alcohol Intake frequency: 3 or more drinks per day Alcohol type: beer Drug use: Never Substance use type: does not use What type of physical activity do you participate in: none Do you feel safe at home: Yes Do you feel safe in your relationship?: Yes Exam <Yosef Toribio DO - Last Filed: 12/16/19 08:17> Narrative Exam Narrative: 1.Const: Well-nourished, Well-developed, appearing stated age 2.Eyes: PERRL, no conjunctival injection, and symmetrical lids. 3.ENT: Atraumatic external nose and ears. Moist MM. Neck: Symmetric, trachea midline, No thyromegaly. 4.CVS: +S1/S2, No murmurs or gallops. Peripheral pulses 2+ and equal in all extremities. Brisk capillary refill in all extremities. No reproducible chest pain. Radial pulses equal bilaterally. 5.RESP: Unlabored respiratory effort. Clear to auscultation bilaterally. No wheezes rales or rhonchi 6.GI: Soft, Nontender/Nondistended, No hepatosplenomegaly. No guarding or rebound. 7.MSK: Normocephalic/Atraumatic, Extremities w/o deformity or ttp No cyanosis or clubbing, Normal movement of all extremities 8.Skin: Warm, Dry. No rashes or lesions. 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 Sensation grossly intact, no focal neurologic deficits. 10.Psych: (AAO) x3. Appropriate mood and affect Course <Yosef Toribio DO - Last Filed: 12/16/19 08:17> Vital Signs Vital signs: Vital Signs Temperature 36.8 C 12/16/19 04:17 Pulse 91 H 12/16/19 04:17 Respiratory Rate 28 H 12/16/19 04:17 Blood Pressure 126/62 12/16/19 04:17 Pulse Oximetry 95 12/16/19 04:17 Temperature 36.8 C 12/16/19 04:17 Temperature Source Temporal Artery Scan 12/16/19 04:17 Pulse 91 H 12/16/19 04:17 Respiratory Rate 28 H 12/16/19 04:17 Blood Pressure 126/62 12/16/19 04:17 Blood Pressure Position Supine 12/16/19 04:17 Pulse Oximetry 95 12/16/19 04:17 Oxygen Delivery Method Room Air 12/16/19 04:17 Oxygen Flow Rate 0 12/16/19 04:17 Pain Level 10 12/16/19 04:17 Sign Out <Yosef Toribio DO - Last Filed: 12/16/19 08:17> Sign Out Data: Sign Out Comment: Pending repeat chest x-ray results for resolution of pneumothorax. As well as repeat troponin. Last updated by Yosef Toribio DO at 12/16/19 07:48
[2019-12-16] MEDS: Normal Saline 1,000 ML 1000 ML IV (04:29)
[2019-12-16 04:31] LABS: Abs Immature Grans 0.07 10^3/uL (0.0-0.06); Absolute Basophil Count 0.06 10^3/uL (0.0-0.2); Absolute Lymphocyte Count 2.01 10^3/uL (1.2-3.4); Absolute Monocyte Count 0.65 10^3/uL (0.1-0.8); Basophils % 0.4; Eosinophils % 0.1; HCT 44.5 % (40.0-50.0); HGB 15.1 g/dL (13.5-17.5); Immature Grans % 0.5; MCH 32.1 pg (27.0-33.0); MCHC 33.9 % (32.0-36.0); MCV 94.7 fL (80-95); MPV 9.1 fL (8.0-11.0); Monocytes % 4.5; Neutrophils % 80.5; Platelet Count 246 10^3/uL (130-400); RDW 13.8 % (11.8-14.1); RDW-SD 48.6 fL; WBC 14.35 10^3/uL (4.4-10.8)
[2019-12-16 04:32] LABS: Absolute Eosinophil Count 0.01 10^3/uL (0.0-0.7); Absolute Neutrophil Count 11.55 10^3/uL (1.2-6.7)
[2019-12-16 04:59] LABS: ALT 74 U/L (16-63); AST 49 U/L (15-37); Albumin 4.1 g/dL (3.4-5.0); Alkaline Phosphatase 89 U/L (46-116); Anion Gap 12.9 mmol/L (3-11); BUN 6 mg/dL (7-18); Bilirubin, Total 0.4 mg/dL (0.2-1.0); CO2 24.1 mmol/L (21.0-32.0); CREATININE 0.74 mg/dL (0.70-1.30); Calcium 8.1 mg/dL (8.5-10.1); Chloride 101 mmol/L (98-107); ETHANOL BLOOD 265.4 mg/dL (<3); Glucose 118 mg/dL (74-106); Lipase 192 U/L (73-393); NT-proBNP 21 pg/mL (<300); Sodium 138 mmol/L (136-145); Total Protein 7.6 g/dL (6.4-8.2); Troponin I < 0.05 ng/mL (<0.06)
[2019-12-16 05:03] LABS: *AMPHETAMINES SCREEN URINE Negative (Negative); *BARBITURATES SCREEN URINE Negative (Negative); *BENZODIAZEPINES SCREEN URINE Negative (Negative); Cannabinoids THC Negative (Negative); Cocaine Screen,Urine Negative (Negative); METHADONE URINE SCREEN Negative (Negative); OPIATES URINE SCREEN Negative (Negative)
[2019-12-16 05:04] LABS: Tricyclic Antidepressants Negative (Negative)
[2019-12-16 05:07] LABS: INR 0.9 (0.9-1.1); PTT Activated 21.2 sec (21.0-31.4); Prothrombin Time 9.3 sec (9.3-11.0)
[2019-12-16] MEDS: Omnipaque 350 MG/ML 100 ML BTL IJ (05:29)
[2019-12-16] MEDS: Normal Saline - Diluent 50 ML VIAL IV (05:30)
[2019-12-16] MEDS: Lidocaine 5% Patch 1 PATCH TP (05:36)
--- NOTE | 2019-12-16 05:41 | DI.VRAD_ITS ---
Addendum created by Frandy Marte MD on 12/16/2019 5:44:07 AM EDT THIS REPORT CONTAINS FINDINGS THAT MAY BE CRITICAL TO PATIENT CARE. The findings were verbally communicated via telephone conference with HAMIDA CLARKE at 5:42 AM EDT on 12/16/2019. The findings were acknowledged and understood. Initial report created on 12/16/2019 5:41:46 AM EDT PROCEDURE INFORMATION: Exam: CT Angiography Chest With Contrast Exam date and time: 12/16/2019 4:22 AM Age: 49 years old Clinical indication: Right-sided chest pain; Patient HX: Severe R chest pain; Additional info: R/O pe/dissection TECHNIQUE: Imaging protocol: Computed tomographic angiography of the chest with intravenous contrast. 3D rendering: MIP and/or 3D reconstructed images were created by the technologist. COMPARISON: CT CHEST W/ HRCT 06/03/2016 12:54 PM FINDINGS: Limited due to motion artifact No large pulmonary emboli observed. Limited evaluation for small emboli predominantly in the lower lobes. No aortic dissection or aneurysm Right-sided small pneumothorax observed measuring approximately 5%. No focal consolidation. No pleural effusion. Limited evaluation for fractures due to motion artifact. No gross fracture detected Mild cardiomegaly. No pericardial effusion The visualized upper abdomen is unremarkable IMPRESSION: Right-sided small pneumothorax as described. Limited evaluation for rib fractures due to motion artifact. No gross fracture No large pulmonary emboli No aortic dissection Dictated and Authenticated by: Frandy Marte MD. Ordering:DANYEL Navas MD
--- NOTE | 2019-12-16 06:45 | DI.RAD_ITS ---
EXAM: XR CHEST 2V PA LATERAL CLINICAL HISTORY: eval for pneumothorax resolution TECHNIQUE: COMPARISON: CR RF BARIUM SWALLOW from 03/21/2019 FINDINGS: Heart is not enlarged. The lungs appear clear. The small right pneumothorax noted on CT is very kelly ntly visible at the apex.. No additional significant findings. No significant pleural effusion seen . IMPRESSION:
[2019-12-16 07:53] LABS: Troponin I < 0.05 ng/mL (<0.06)
--- NOTE | 2019-12-16 08:04 | DI.VRAD_ITS ---
PROCEDURE INFORMATION: Exam: XR Chest, 2 Views Exam date and time: 12/16/2019 7:27 AM Age: 49 years old Clinical indication: Other: Evaluation for pneumothorax resolution. TECHNIQUE: Imaging protocol: XR of the chest Views: 2 views. COMPARISON: CT CHEST PE CTA 12/16/2019 5:05 AM FINDINGS: Lungs: Hyperinflation and interstitial prominence. Pleural space: CT detected pneumothorax is not clearly visualized on the radiographs obtained. Heart/Mediastinum: No cardiomegaly. Bones/joints: Degenerative change . IMPRESSION: Hyperinflation and interstitial prominence. Dictated and Authenticated by: Colt Avina MD. Ordering:DANYEL Navas MD
== END 2019-12-16 09:35 | disposition home or self-care (01) ==
PROVIDERS: Student in an Organized Health Care Education/Training Program; Emergency Provider Physician Assistant; PCP Family Medicine
DX: J93.83 Other pneumothorax (principal); F10.120 Alcohol abuse with intoxication, uncomplicated; Y90.8 Blood alcohol level of 240 mg/100 ml or more; R07.81 Pleurodynia; I10 Essential (primary) hypertension; J44.9 Chronic obstructive pulmonary disease, unspecified; F17.210 Nicotine dependence, cigarettes, uncomplicated
CPT/HCPCS: 71275; 80053; 80307; 83690; 93005; 96361; 96374; 96376; 99285; 71046; 80320; 83880; 84484; 85025; 85610; 85730; 93010; J3360; J3490

== ENCOUNTER 2019-12-18 21:19 | Emergency (ER) | payer MEDICAID, SELFPAY ==
--- NOTE | 2019-12-18 21:15 | RT.EKG_ITS ---
APPROVED REPORT Exam: Resting ECG Patient Location: E HR:59 bpm ECG Measurements Heart Rate 59 AXIS MN 165 P 73 QRSd 112 QRS 58 QT 410 T 30 QTc 406 <Conclusion> Sinus bradycardia at 59. Normal [place] Normal Intervals There are no significant changes compared to prior EKG performed on 12/16/2019 at 04:21.
[2019-12-18 21:20] VITALS: BP 113/77; PULSE 66; RESP 16; TEMP 36.7; O2SAT 97
[2019-12-18 21:25] VITALS: RESP 15
--- NOTE | 2019-12-18 21:30 | DI.RAD_ITS ---
EXAM: XR CHEST 3 VIEW CLINICAL HISTORY: known PTX, reports worse pain TECHNIQUE: COMPARISON: CR,XR XR CHEST 2V PA LATERAL from 12/16/2019 FINDINGS: Three views were obtained including inspiratory and expiratory chest films. On the expiratory chest film, there is suggestion of a very tiny right apical pneumothorax. Otherwise lungs are clear and we ll expanded. No pleural effusion. Cardiac size within normal limits. IMPRESSION: Tiny minimally visible right apical pneumothorax.
--- NOTE | 2019-12-19 01:26 | DI.VRAD_ITS ---
PROCEDURE INFORMATION: Exam: XR Chest, 4 or more Views Exam date and time: 12/18/2019 9:41 PM Age: 49 years old Clinical indication: Other: Expiration inspiration plus lat views dur to ? small pneumothorax seen on CT two days ago; Additional info: Expiration inspiration plus lat views dur to ? small pneumothorax seen on CT two days ago TECHNIQUE: Imaging protocol: XR of the chest Views: 4 or more views. COMPARISON: CR XR CHEST 2V PA LATERAL 12/16/2019 7:27 AM FINDINGS: Lungs: Pulmonary hyperinflation is again evident and no new parenchymal mass or consolidation is detected. Pleural space: Right-sided pneumothorax detected on comparison CT of the chest from 16 December 2019 is not visible on the current examination and there is no evidence of pleural effusion. Heart/Mediastinum: Unremarkable. No cardiomegaly. Bones/joints: Thoracic spondylosis is similar appearance with no acute osseous lesions detected. IMPRESSION: Hyperinflation with no acute cardiopulmonary process. Right-sided pneumothorax seen on recent comparison chest CT is not visible on the current radiographs. Dictated and Authenticated by: Robert Schrader MD. Ordering:GALDINO Cai MD
== END 2019-12-18 22:50 ==
LOC: ER 21:57
PROVIDERS: Emergency Provider Emergency Medicine; PCP Family Medicine
DX: R09.1 Pleurisy (principal); Z53.29 Procedure and treatment not carried out because of patient's decision for other reasons; I10 Essential (primary) hypertension; J44.9 Chronic obstructive pulmonary disease, unspecified; F17.210 Nicotine dependence, cigarettes, uncomplicated
CPT/HCPCS: 93005; 99284; 71047; 93010; 99283

== ENCOUNTER 2019-12-19 09:09 | Outpatient (REF) | payer MEDICAID, SELFPAY ==
[2019-12-21 15:39] LABS: HSV 1 DNA Result Negative (Negative); HSV 2 DNA Result Negative (Negative); Varicella Zoster DNA Result Negative (Negative)
== END 2019-12-19 09:29 ==
LOC: NCHCN 09:09
PROVIDERS: PCP Family Medicine; Visit Provider Family Medicine
DX: R23.8 Other skin changes (principal)
CPT/HCPCS: 87529; 87798

== ENCOUNTER 2020-06-04 19:47 | Outpatient (REF) | payer MEDICAID, SELFPAY ==
[2020-06-06 22:12] LABS: COVID-19 RT-PCR Result NEGATIVE (Negative)
== END 2020-06-04 20:07 ==
LOC: NCHCN 19:47
PROVIDERS: PCP Family Medicine; Visit Provider Family Medicine
DX: J06.9 Acute upper respiratory infection, unspecified (principal)
CPT/HCPCS: U0003

== ENCOUNTER 2020-11-14 09:33 | Outpatient (REF) | payer MEDICAID, SELFPAY ==
[2020-11-14 14:23] LABS: HCT 44.8 % (40.0-50.0); MCH 32.1 pg (27.0-33.0); MCHC 33.5 % (32.0-36.0); MCV 95.7 fL (80-95); Platelet Count 239 10^3/uL (130-400); RBC 4.68 10^6/uL (4.36-5.78); RDW 13.4 % (11.8-14.1); RDW-SD 47.5 fL
[2020-11-14 14:45] LABS: ALT 52 U/L (16-63); AST 44 U/L (15-37); Albumin 3.8 g/dL (3.4-5.0); Alkaline Phosphatase 96 U/L (46-116); Anion Gap 13.6 mmol/L (3-11); BUN 7 mg/dL (7-18); Bilirubin, Total 0.3 mg/dL (0.2-1.0); CO2 24.4 mmol/L (21.0-32.0); CREATININE 0.8 mg/dL (0.70-1.30); Calcium 8.7 mg/dL (8.5-10.1); Calculated LDL 89 mg/dL (<100); Chloride 103 mmol/L (98-107); Cholesterol 172 mg/dL (<200); Glucose 104 mg/dL (74-106); HDL Cholesterol 62 mg/dL (40-60); Potassium 4.5 mmol/L (3.5-5.1); Sodium 141 mmol/L (136-145); Total Protein 7.1 g/dL (6.4-8.2); Triglyceride 107 mg/dL (<150)
== END 2020-11-14 09:34 | disposition home or self-care (01) ==
LOC: NCHCN 09:33
PROVIDERS: PCP Family Medicine; Visit Provider Family Medicine
DX: E78.5 Hyperlipidemia, unspecified (principal); I10 Essential (primary) hypertension; R06.09 Other forms of dyspnea
CPT/HCPCS: 80053; 80061; 85027

== ENCOUNTER 2020-11-24 01:43 | Outpatient (CLI) | payer MEDICAID, SELFPAY ==
--- NOTE | 2020-11-24 09:13 | DI.CTLCSR_ITS ---
Exam(s) CT CHEST LUNG CANCER SCREEN EXAM: CT CHEST LUNG CANCER SCREEN CLINICAL HISTORY: SCREENING FOR LUNG CA,CURRENT SMOKER, F17.209,MILD RESTRICTION. TECHNIQUE: Imaging Protocol: Low Dose Technique CONTRAST MATERIAL: None COMPARISON: CT CT CHEST W/ HRCT from 06/03/2016 CR XR PORTABLE CHEST AP from 11/06/2018 CR XR PORTABLE CHEST AP from 11/06/2018 CR,XR XR CHEST 3 VIEW from 12/18/2019 FINDINGS: CHEST: LUNGS: There are no ominous pulmonary nodules. There are no confluent infiltrates. No pleural effusi ons. MEDIASTINUM: There is no obvious hilar nor mediastinal adenopathy. CARDIAC: Heart size is upper normal. There is no pericardial effusion.Caliber of the thoracic aorta is within normal limits. OTHER: OSSEOUS: No significant osseous lesions.. IMPRESSION: 1. No significant focal pulmonary findings. 2. No pleural effusions nor intrathoracic adenopathy. 3. Lung RADS Cat 1 - Negative: No nodules and definitely benign nodules Lung-RADS 1.0 CATEGORIES: Category 0 - Prior chest CT exam(s) being located for comparison. Category 1 - Annual screening in 12 months. No nodules or definitely benign nodules. Category 2 - Annual screening in 12 months. Benign appearance. Nodules with low likelihood of becomin g active cancer. Category 3 - 6-month follow-up. Probably benign. Short-term follow-up suggested. Nodules with low lik elihood of becoming active cancer. Category 4A - 3-month follow-up and CT/PET if >8 mm in size. Suspicious finding. Findings which requi re additional testing. Category 4B - Findings which require additional testing and tissue sampling. Modifier S- Potentially clinically significant findings (non lung cancer) RADIATION DOSE DELIVERED: 88.97mGy.cm Total DLP 1.84mGy CTDIvol DATA REPOSITORY: All CT scans at this facility are submitted to the National Radiology Data Registry (NRDR) Dose Index Registry (DIR) with the [employer] ([employer]). RADIATION OPTIMIZATION: All CT scans at this facility use at least one of these dose optimization te chniques: automated exposure control; mA and/or kV adjustment per patient size (includes targeted exa ms where dose is matched to clinical indication); or iterative reconstruction.
== END 2020-11-24 02:03 ==
PROVIDERS: PCP Family Medicine; Visit Provider Family Medicine
DX: Z12.2 Encounter for screening for malignant neoplasm of respiratory organs (principal); F17.200 Nicotine dependence, unspecified, uncomplicated
CPT/HCPCS: 71271

== ENCOUNTER 2021-02-20 11:28 | Emergency (ER) | payer MEDICAID, SELFPAY ==
[2021-02-20 11:33] VITALS: BP 139/99; PULSE 77; RESP 16; TEMP 36.7; O2SAT 98
--- NOTE | 2021-02-20 11:56 | W.ED.GENAD ---
Discharge Plan Disposition Patient Disposition: HOME Condition: Improving Discharge Details Clinical Impression: Left sided sciatica Primary Care Provider: Cristel Ramos ED Provider: Graham Wise Home Meds and New Rx's Prescriptions: New methocarbamol 750 mg tablet 750 mg PO TID PRN (Reason: pain) Qty: 14 RF: 0 prednisone 50 mg tablet 50 mg PO DAILY 5 Days Qty: 5 RF: 0 Continued omeprazole 40 mg capsule,delayed release(DR/EC) 40 mg PO BID Qty: 60 RF: 3 ProAir RespiClick 90 MCG aerosol powdr breath activated 90 mcg Inhalation Q6H PRN RF: 0 budesonide-formoterol [Symbicort] 80-4.5 mcg/actuation HFA aerosol inhaler 2 puff IH BID RF: 0 hydrocortisone 2.5 % cream 1 applic TP BID PRNRF: 0 metoprolol tartrate 25 mg tablet 25 mg PO BID Qty: 180 RF: 6 atorvastatin 20 mg tablet 20 mg PO DAILY Qty: 90 RF: 6 triamcinolone acetonide 0.1 % Cream 1 applic TOPICAL BID RF: 0 hydrocortisone [Proctosol HC] 2.5 % cream with perineal applicator 1 applic VA BID-QID PRN (Reason: hemorrhoids) Qty: 28.35 RF: 0 acetaminophen [Tylenol Extra Strength] 500 mg Tablet 1,000 mg PO Q6H PRN (Reason: Pain) RF: 0 Discharge Instructions Instructions: Sciatica (ED) Additional Instructions: I have prescribed you physical therapy. Take medications as prescribed. There were electronically transmitted to your pharmacy. See enclosed work note. May continue the use of Tylenol as needed for discomfort with methocarbamol as needed for muscle spasm or pain. Return to emergency department if you develop urinary incontinence, increasing pain, weakness of the legs, or any other acute concerns. Stand Alone Forms: Physical Therapy Referral, Work Release Medical Decision Making 51-year-old male presents with approximately 2 weeks of left low back/hip pain that radiates at times down the back of his leg. 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 He did not fall or injure himself. He has not had urinary incontinence, weakness or numbness. Consistent with left sciatica. Will treat with a burst of prednisone and methocarbamol. Patient is stable and appropriate for discharge to home. HPI General Mode of arrival: ambulatory. Date/Time Provider Initiated Documentation: 02/20/21 11:40. Limitations to Documentation: no limitations. Information obtained by: patient. History of Present Illness 51 year old M presents to the emergency department with the chief complaint of Left hip pain, described as moderate, Quality is described as dull and constant, and is localized to the left and lower extremity. Patient distal. Patient started experiencing this week(s) and it has been intermittent. No relieving factors improve symptom(s), No exacerbating factors reported . Patient notes denies fever/chills and weakness. Patient did receive the following treatments prior to arrival, none Related Data Home Medications Medication Instructions Recorded Confirmed ProAir RespiClick 90 mcg INHALATION Q6H PRN 09/22/17 02/20/21 triamcinolone acetonide 1 applic TOPICAL BID 02/15/18 02/18/21 hydrocortisone [Proctosol HC] 1 applic VA BID-QID PRN #28.35 gm 09/19/18 02/20/21 omeprazole 40 mg capsule,delayed 40 mg PO BID #60 cap 11/10/18 02/20/21 release budesonide-formoterol HFA 80 2 puff IH BID 05/14/19 02/20/21 mcg-4.5 mcg/actuation aerosol inhaler hydrocortisone 2.5 % topical cream 1 applic TP BID PRN 05/14/19 02/20/21 acetaminophen [Tylenol Extra 1,000 mg PO Q6H PRN 12/18/19 02/20/21 Strength] atorvastatin 20 mg tablet 20 mg PO DAILY #90 tab NS 08/14/20 02/20/21 metoprolol tartrate 25 mg tablet 25 mg PO BID #180 tab NS 08/14/20 02/20/21 methocarbamol 750 mg PO TID PRN #14 tab 02/20/21 prednisone 50 mg PO DAILY 5 Days #5 tab 02/20/21 Previous Rx's Medication Instructions Recorded hydrocortisone [Proctosol HC] 1 applic VA BID-QID PRN #28.35 gm 09/19/18 omeprazole 40 mg capsule,delayed 40 mg PO BID #60 cap 11/10/18 release atorvastatin 20 mg tablet 20 mg PO DAILY #90 tab NS 08/14/20 metoprolol tartrate 25 mg tablet 25 mg PO BID #180 tab NS 04/01/21 methocarbamol 750 mg PO TID PRN #14 tab 02/20/21 prednisone 50 mg PO DAILY 5 Days #5 tab 02/20/21 Allergies Allergy/AdvReac Type Severity Reaction Status Date / Time ibuprofen Allergy Mild Hives Verified 02/20/21 11:39 lisinopril Allergy Unknown Verified 02/20/21 11:39 General Stated Complaint: FlankPain DIANNA: 3 Review of Systems Narrative: Denies fall or injury. No numbness or weakness of the legs. Denies to me any urinary incontinence. Radiates at times down the back of the leg. 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) 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 Bicuspid aortic valve Cholesteatoma Chronic anal fissure (~09/19/18) Chronic mastoiditis (03/22/13) Chronic mastoiditis of both sides (03/20/15) Colorectal polyp detected on colonoscopy (~09/19/18) COPD (chronic obstructive pulmonary disease) CVA (cerebral vascular accident) Diarrhea DJD (degenerative joint disease) Dyspnea on exertion Elbow pain Encounter for screening colonoscopy Esophagitis (~09/19/18) Gastritis (~09/19/18) Gastroesophageal reflux disease GERD (gastroesophageal reflux disease) Hearing loss Hemorrhoids History of corrected cleft lip and palate HTN (hypertension) Impacted cerumen (06/14/13) Insomnia Lumbosacral neuritis Mastoiditis Mature cataract (02/20/18) 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) Mixed hearing loss, bilateral (03/22/13) Optic atrophy, left eye Otitis externa Otitis externa (03/22/13) Papular urticaria Posterior subcapsular age-related cataract of left eye (02/20/18) Right rotator cuff tendinitis (02/04/17) Right shoulder pain Sensorineural hearing loss, bilateral (03/08/13) TIA (transient ischemic attack) Tobacco use disorder Surgical History Arthroscopy, Shoulder History of cataract surgery S/P colonoscopy (~09/19/18) Tympanoplasty I Tympanoplasty II - IV Family History Other Asthma Cancer Diabetes Heart disease Social History Smoking/Tobacco Use Status: Current every day Tobacco Type: cigarettes Smoking packs per day: 0.5 Smoking cigarettes per day: 10.0 Years smoked: 40 Smoking pack-years: 20.00 Counseling given: counseling >3 minutes Smoking risk assessment performed?: Yes Alcohol Intake: current Alcohol Intake frequency: 3 or more drinks per day Alcohol type: beer Details: 12 pack ppd Drug use: Never Substance use type: does not use What type of physical activity do you participate in: none and additional Details: just walk/work Do you feel safe at home: Yes Do you feel safe in your relationship?: Yes Exam Narrative Exam Narrative: GEN: awake, alert, oriented 3. Pleasant, well groomed, interactive. HEAD: Normocephalic, atraumatic ENT: Mucous membranes moist, oropharynx unremarkable, External ear exam unremarkable EYES: PERRL, EOMI NECK: Full ROM, no SIMI, no menigismus CHEST/RESP: Nontender, clear to auscultation bilateral, no wheeze/rhonchi/rales CARDIOVASCULAR: RRR, no murmur, rub paty. 2+ Rad pulse bilateral ABDOMEN: Soft, nontender, no mass. +Bowel sounds EXT: Full ROM, tender left sciatic notch. No saddle anesthesia, motor graded 5 out of 5 throughout. Gait narrow based with good heel strike. Neuro: Grossly normal neurologic exam, conversant, interactive. Psych: Speech fluent, thoughts congruent, affect normal Course Vital Signs Vital signs: Vital Signs Temperature 36.7 C 02/20/21 11:33 Pulse 77 02/20/21 11:33 Respiratory Rate 16 02/20/21 11:33 Blood Pressure 139/99 H 02/20/21 11:33 Pulse Oximetry 98 02/20/21 11:33 Temperature 36.7 C 02/20/21 11:33 Pulse 77 02/20/21 11:33 Respiratory Rate 16 02/20/21 11:33 Respiratory Effort Non-Labored 02/20/21 11:37 Blood Pressure 139/99 H 02/20/21 11:33 Blood Pressure Position Sitting 02/20/21 11:33 Pulse Oximetry 98 02/20/21 11:33 Oxygen Delivery Method Room Air 02/20/21 11:33 Oxygen Flow Rate 0 02/20/21 11:33 Pain Level 9 02/20/21 11:36 PAWSS Have you Been Recently Intoxicated or Drunk Within the Last 30 days?: Yes Have you Ever Experienced Previous Episodes of Alcohol Withdrawal?: No Have you ever Experienced Withdrawal Seizures?: No Have you ever Experienced Delirium Tremens(DT)s?: Yes Have you ever undergone Alcohol Rehabilitation Treatment (i.e, inpt ot outpatient treatment programs)?: Yes Have you ever Experienced Blackouts?: Yes Have you ever Combined Alcohol with other Downers within the last 90 days?: No Have you ever Combined Alcohol with any other Substance of Abuse during the last 90 days?: No Positive Blood Alcohol level on Presentation? [PCS.BAL]: Unable to Obtain Evidence of Increased Autonomic Activity (i.e. HR>120, tremor, sweating, agitation, nausea)?: No Result: 4
[2021-02-20] MEDS: Methocarbamol 750 MG TAB 1500 MG PO (12:08)
[2021-02-20] MEDS: predniSONE 20 MG TAB 60 MG PO (12:08)
[2021-02-20 12:17] LABS: Bilirubin Negative (Negative); Blood Negative (Negative); Clarity Clear (Clear); Glucose Negative (Negative); Ketones Negative (Negative); Leukocyte Esterase Negative (Negative); Nitrite Negative (Negative); Specific Gravity 1.015 (1.005-1.025); Urobilinogen 0.2 EU/dL (Up TO 0.2)
== END 2021-02-20 12:15 | disposition home or self-care (01) ==
PROVIDERS: Emergency Provider Emergency Medicine; PCP Family Medicine
DX: M54.42 Lumbago with sciatica, left side (principal)
CPT/HCPCS: 99283; 81003; J7512

== ENCOUNTER 2021-03-09 21:44 | Emergency (ER) | payer MEDICAID, SELFPAY ==
[2021-03-09 21:47] VITALS: BP 134/89; PULSE 78; RESP 18; TEMP 36.2; O2SAT 98
--- NOTE | 2021-03-09 22:07 | ED.GENADUL_ITS ---
Discharge Plan Disposition Patient Disposition: HOME Condition: Improving Discharge Details Clinical Impression: Bursitis, trochanteric Primary Care Provider: Cristel Ramos ED Provider: Olivia Campbell Home Meds and New Rx's Prescriptions: Continued omeprazole 40 mg capsule,delayed release(DR/EC) 40 mg PO BID Qty: 60 RF: 3 ProAir RespiClick 90 MCG aerosol powdr breath activated 90 mcg Inhalation Q6H PRN RF: 0 budesonide-formoterol [Symbicort] 80-4.5 mcg/actuation HFA aerosol inhaler 2 puff IH BID RF: 0 hydrocortisone 2.5 % cream 1 applic TP BID PRNRF: 0 metoprolol tartrate 25 mg tablet 25 mg PO BID Qty: 180 RF: 6 atorvastatin 20 mg tablet 20 mg PO DAILY Qty: 90 RF: 6 triamcinolone acetonide 0.1 % Cream 1 applic TOPICAL BID RF: 0 hydrocortisone [Proctosol HC] 2.5 % cream with perineal applicator 1 applic NM BID-QID PRN (Reason: hemorrhoids) Qty: 28.35 RF: 0 acetaminophen [Tylenol Extra Strength] 500 mg Tablet 1,000 mg PO Q6H PRN (Reason: Pain) RF: 0 Discharge Instructions Instructions: Hip Bursitis (ED) Additional Instructions: Your exam here today is most consistent with trochanteric bursitis. May continue with Tylenol as needed for discomfort. You received an injection of numbing medicine as well as steroids. Your pain should improve over the next several days. Please encourage gentle stretching and frequent ambulation. Please monitor area for signs infection including redness, warmth, drainage, increased pain, fever/chills. If you develop these or other new/worsening symptoms please seek care urgently once again. Otherwise, keep your follow-up appointment with your primary care on Tuesday. Referrals: Cristel Ramos MD [Primary Care Provider] - Discharge Data Discharge Date/Time-TO BE ENTERED AT DEPARTURE: 03/09/21 23:56 Medical Decision Making Patient is a pleasant 51-year-old male presenting today with chief complaint of left hip and back pain. Patient was seen here 3 weeks ago she was diagnosed with sciatica. States the pain has persisted. He initially had some relief with the steroids and methocarbamol. However, pain has come back now the symptoms have previously. Pain can radiate down the posterior aspect of the left leg. States that this is acute on chronic. Has had sciatica for the past 2 years. However, states that he can have flares of this. Has an appointment with primary care in 4 days. Has allergy to NSAIDs. Has not taken anything today for his discomfort. Denies any weakness. No change in bowel or bladder habits. Denies any fevers or chills. No recent trauma. On exam, patient appears nontoxic. Stable vital signs. Abdomen is benign. No midline tenderness on spinal exam. He does have some tenderness over the left SI joint. No rashes appreciated. Neurologically intact, no saddle paresthesias. 5 out of 5 strength of left lower extremity compared to the contralateral side. 2+ distal pulses. Negative straight leg raise. Patient's primary source of pain is palpation over the lateral aspect of the hip. Pain is directly over the greater trochanter, concern for trochanteric bursitis. He does have full range of motion of the spine as well as the hip but does have pain particularly with internal rotation and abduction of the hip. Will obtain x-rays for further evaluation. Patient I discussed risk/benefits as well as the procedural steps associated with injection of the trochanteric bursa. Patient was understanding and wishes to proceed. Please see procedure note. Procedural consent form was signed. Procedure was completed using standard sterile technique. Cleansed chlorhexidine. Point of maximal tenderness was identified over greater trochanter. 4 cc of 1% lidocaine plain and 40 mg of Kenalog was injected. Patient had immediate improvement in his discomfort. Advised close f/u wtih PCP. Advised he may continue with APAP for pain. Return precautions discussed. Advised stretching, frquent ambulation. Will refer to PT for continued managmenent. All of his questions and concerns were addressed, he is in agreement girish delvalle. HPI General Mode of arrival: ambulatory . Date/Time Provider Initiated Documentation: 03/09/21 21:50 . Limitations to Documentation: no limitations . Information obtained by: patient, RN notes reviewed and old records reviewed . History of Present Illness 51 year old M presents to the emergency department w ith the chief complaint of sciatica and left hip pain, described as severe and similar to prior episodes, with intensity rated at 10. Quality is described as burning and aching, and is localized to the back, left and lower extremity. Patient extremity. Patient started experiencing this week(s) and it has been constant. Immobilization improves symptom(s), Movement worsens symptoms . Patient notes no other symptoms.. Patient did receive the following treatments prior to arrival, none Related Data Home Medications Medication Instructions Recorded Confirmed ProAir RespiClick 90 mcg INHALATION Q6H PRN 09/22/17 03/09/21 triamcinolone acetonide 1 applic TOPICAL BID 02/15/18 03/09/21 hydrocortisone [Proctosol HC] 1 applic NM BID-QID PRN #28.35 gm 09/19/18 03/09/21 omeprazole 40 mg capsule,delayed 40 mg PO BID #60 cap 11/10/18 03/09/21 release budesonide-formoterol HFA 80 2 puff IH BID 05/14/19 03/09/21 mcg-4.5 mcg/actuation aerosol inhaler hydrocortisone 2.5 % topical cream 1 applic TP BID PRN 05/14/19 03/09/21 acetaminophen [Tylenol Extra 1,000 mg PO Q6H PRN 12/18/19 03/09/21 Strength] atorvastatin 20 mg tablet 20 mg PO DAILY #90 tab NS 08/14/20 03/09/21 metoprolol tartrate 25 mg tablet 25 mg PO BID #180 tab NS 08/14/20 03/09/21 Previous Rx's Medication Instructions Recorded hydrocortisone [Proctosol HC] 1 applic NM BID-QID PRN #28.35 gm 09/19/18 omeprazole 40 mg capsule,delayed 40 mg PO BID #60 cap 11/10/18 release atorvastatin 20 mg tablet 20 mg PO DAILY #90 tab NS 08/14/20 metoprolol tartrate 25 mg tablet 25 mg PO BID #180 tab NS 08/14/20 Allergies Allergy/AdvReac Type Severity Reaction Status Date / Time ibuprofen Allergy Mild Hives Verified 03/09/21 21:53 lisinopril Allergy Unknown Verified 03/09/21 21:53 General Stated Complaint: Nk/Back Pain DIANNA: 3 Review of Systems Constitutional Constitutional: Reports as per HPI, Denies chills, Denies fatigue, Denies fever(s), Denies frequent falls and Denies headache(s) ENT Ears, Nose, Mouth, and Throat: Denies headache(s) Cardiovascular Cardiovascular: Denies dyspnea Respiratory Respiratory: Denies cough and Denies dyspnea Gastrointestinal Gastrointestinal: Denies abdominal pain, Denies change in bowel habits and Denies fecal incontinence Genitourinary Genitourinary: Reports as per HPI, Denies urinary hesitancy and Denies urinary incontinence Musculoskeletal Musculoskeletal: Reports as per HPI, Reports back pain, Denies muscle weakness, Denies numbness, Reports stiffness and Denies tingling Integumentary/Breasts Skin/Breast: Reports as per HPI and Denies rash Neurologic Neurologic: Reports as per HPI, Denies frequent falls, Denies headache(s), Denies localized weakness, Denies numbness, Denies sensory deficit, Denies t ingling and Denies paresthesias Endocrine Endocrine: Denies fatigue [facility] Medical History (Updated 03/09/21 @ 23:49 by LUISA Ramos) Alcoholism Allergic rhinitis Anxiety and depression 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) 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 Bicuspid aortic valve Cholesteatoma Chronic anal fissure (~09/19/18) Chronic mastoiditis (03/22/13) Chronic mastoiditis of both sides (03/20/15) Colorectal polyp detected on colonoscopy (~09/19/18) COPD (chronic obstructive pulmonary disease) CVA (cerebral vascular accident) Diarrhea DJD (degenerative joint disease) Dyspnea on exertion Elbow pain Encounter for screening colonoscopy Esophagitis (~09/19/18) Gastritis (~09/19/18) Gastroesophageal reflux disease GERD (gastroesophageal reflux disease) Hearing loss Hemorrhoids History of corrected cleft lip and palate HTN (hypertension) Impacted cerumen (06/14/13) Insomnia Lumbosacral neuritis Mastoiditis Mature cataract (02/20/18) 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) Mixed hearing loss, bilateral (03/22/13) Optic atrophy, left eye Otitis externa Otitis externa (03/22/13) Papular urticaria Posterior subcapsular age-related cataract of left eye (02/20/18) Right rotator cuff tendinitis (02/04/17) Right shoulder pain Sensorineural hearing loss, bilateral (03/08/13) TIA (transient ischemic attack) Tobacco use disorder Surgical History Arthroscopy, Shoulder History of cataract surgery S/P colonoscopy (~09/19/18) Tympanoplasty I Tympanoplasty II - IV Family History Other Asthma Cancer Diabetes Heart disease Social History Smoking/Tobacco Use Status: Current every day Tobacco Type: cigarettes Smoking packs per day: 0.5 Smoking cigarettes per day: 10.0 Years smoked: 40 Smoking pack-years: 20.00 Counseling given: counseling >3 minutes Smoking risk assessment performed?: Yes Alcohol Intake: current Alcohol Intake frequency: 3 or more drinks per day Alcohol type: beer Details: 12 pack ppd Drug use: Never Substance use type: does not use Details: 6 pack beer daily What type of physical activity do you participate in: none and additional Details: just walk/work Do you feel safe at home: Yes Do you feel safe in your relationship?: Yes Exam Const General: cooperative, healthy appearing, uncomfortable, no acute distress, well developed and well groomed Nutritional Appearance: average body habitus and well nourished Orientation: alert and awake Neck Neck: normal visual inspection and full ROM Resp Effort & Inspection: normal respiratory effort and able to speak in complete sentences Auscultation: clear to auscultation bilaterally, no rales, no rhonchi and no wheezes Cardio Rate: regular rate Rhythm: regular rhythm Heart Sounds: S1 normal and S2 normal GI Inspection: normal to inspection Palpation: soft and nontender Back/Spine/Pelvis Back/spine/pelvis image: 1. Area of tenderness. No focal midline tenderness, no step off or deformity. No saddle paresthesias. 5/5 strength in BLE. Reflexes normal. 2+ distal pulses. Full ROM of BLE. Negative straight leg raise. While this area is tender, area of maximal pain os over greater trochanter. Skin General skin exam: no rashes or lesions noted Neuro General: patient alert and patient awake Cognition: normal cognition Speech: speech normal Gait: normal gait Motor: muscle tone normal throughout, strength 5/5 throughout, no movement abnormalities noted and no fasciculations Sensory Exam: no sensory deficits noted (no saddle paresthesias) DTR's: Rt Patellar: 2+, Lt Patellar: 2+, Rt Ankle: 2+ and Lt Ankle: 2+ Extrem General: normal to inspection, full ROM, capillary refill normal, no joint enlargement, no pedal edema, no calf tenderness and normal gait Upper/lower leg/hip images: 1. Area of maximal tenderness. Patient is repetitively poking this area and yelling ouch. Full ROM. No swelling, erythmea, rash. No pain with axial loading of the hip. Psych Appearance: grossly normal and well kempt Mental Status: mental status grossly normal Speech and Movement: speech and movement normal Course Vital Signs Vital signs: Vital Signs Temperature 36.2 C L 03/09/21 21:47 Pulse 78 03/09/21 21:47 Respiratory Rate 18 03/09/21 21:47 Blood Pressure 134/89 03/09/21 21:47 Pulse Oximetry 98 03/09/21 21:47 Temperature 36.2 C L 03/09/21 21:47 Temperature Source Temporal Artery Scan 03/09/21 21:47 Pulse 78 03/09/21 21:47 Respiratory Rate 18 03/09/21 21:47 Respiratory Effort Non-Labored 03/09/21 21:54 Blood Pressure 134/89 03/09/21 21:47 Blood Pressure Position Sitting 03/09/21 21:47 Pulse Oximetry 98 03/09/21 21:47 Oxygen Delivery Method Room Air 03/09/21 21:47 Oxygen Flow Rate 0 03/09/21 21:47 Pain Level 10 03/09/21 21:47 Procedures Joint Aspiration/Injection Joint Asp./Inject. 1: Time Out Performed: Yes Side of body: left Ultrasound Guidance: No Skin Prep: Chlorhexidene Local Anesthetic: Lidocaine 1% Needle Size Used: 22G Medication Injected, if any: Methylprednisolone Amount of Medication Injected (mls): 1 Patient Tolerated Procedure: well and no complications Complications: none
--- NOTE | 2021-03-09 22:15 | DI.RAD_ITS ---
Exam(s) XR HIP LT COMPLETE AP PELVIS EXAM: XR HIP LT COMPLETE AP PELVIS INDICATION: lateral hip pain. COMPARISON: No exams were available for comparison TECHNIQUE: 2D digital imaging was performed. FINDINGS: No fracture or dislocation. Hip joint space well maintained. Mild acetabular spurring. No tendon o r joint space calcifications visible. Right hip, SI joints and pubic symphysis unremarkable. IMPRESSION: Mild degenerative changes of the left hip. DATA REPOSITORY: RADIATION DOSE DELIVERED:
[2021-03-09] MEDS: Acetaminophen 500 MG TAB 1000 MG PO (22:27)
--- NOTE | 2021-03-09 23:50 | DI.VRAD_ITS ---
PROCEDURE INFORMATION: Exam: XR Left Hip Exam date and time: 03/09/2021 10:15 PM Age: 51 years old Clinical indication: Left hip; Patient HX: Lateral hip pain TECHNIQUE: Imaging protocol: XR Left hip. Views: 2 or 3 views hip with pelvis when performed. COMPARISON: CT ABD PELVIS WITH CONTRAST 12/16/2015 10:35 AM FINDINGS: Bones/joints: No acute osseous injury or underlying osseous mass. There is minor degenerative change to the left hip with slight prominence of the left superior acetabulum. Soft tissues: Unremarkable. IMPRESSION: 1. Minor degenerative change to the left hip. 2. No acute osseous injury. Dictated and Authenticated by: Santy Vizcaino MD. Ordering:ANDRZEJ Baker MD
[2021-03-09 23:55] VITALS: BP 114/84; PULSE 70; RESP 18; TEMP 36.3; O2SAT 98
== END 2021-03-09 23:56 | disposition home or self-care (01) ==
PROVIDERS: Emergency Provider Physician Assistant; PCP Family Medicine
DX: M70.62 Trochanteric bursitis, left hip (principal)
CPT/HCPCS: 20610; 99283; 73502; 99282; J3490

== ENCOUNTER 2021-04-19 12:45 | Emergency (ER) | payer MEDICAID, SELFPAY ==
[2021-04-19 12:39] VITALS: BP 145/92; PULSE 66; RESP 16; TEMP 36.1; O2SAT 96
--- NOTE | 2021-04-19 13:01 | ED.GENADUL_ITS ---
Discharge Plan Disposition Patient Disposition: HOME Condition: Improving Discharge Details Clinical Impression: Trochanteric bursitis of left hip, History of sciatica Primary Care Provider: Cristel Ramos ED Provider: Nena Merida Home Meds and New Rx's Prescriptions: New prednisone 20 mg tablet See Rx Instructions .ROUTE .COMPLEX Qty: 18 RF: 0 methocarbamol 500 mg tablet 500 mg PO Q6H PRN (Reason: muscle spasm) Qty: 14 RF: 0 Continued omeprazole 40 mg capsule,delayed release(DR/EC) 40 mg PO BID Qty: 60 RF: 3 ProAir RespiClick 90 MCG aerosol powdr breath activated 90 mcg Inhalation Q6H PRN RF: 0 budesonide-formoterol [Symbicort] 80-4.5 mcg/actuation HFA aerosol inhaler 2 puff IH BID RF: 0 hydrocortisone 2.5 % cream 1 applic TP BID PRNRF: 0 metoprolol tartrate 25 mg tablet 25 mg PO BID Qty: 180 RF: 6 atorvastatin 20 mg tablet 20 mg PO DAILY Qty: 90 RF: 6 triamcinolone acetonide 0.1 % Cream 1 applic TOPICAL BID RF: 0 folic acid 1 mg tablet 1 mg PO DAILY RF: 0 minocycline 100 mg capsule 100 mg PO DAILY AM RF: 0 hydrocortisone [Proctosol HC] 2.5 % cream with perineal applicator 1 applic MD BID-QID PRN (Reason: hemorrhoids) Qty: 28.35 RF: 0 acetaminophen [Tylenol Extra Strength] 500 mg Tablet 1,000 mg PO Q6H PRN (Reason: Pain) RF: 0 Discharge Instructions Instructions: Hip Bursitis (ED) Additional Instructions: Apply ice to the affected area several times daily for 20 minutes at a time. Prescriptions for steroids and muscle relaxers have been sent electronically to your pharmacy. Call your primary care doctor's office tomorrow to schedule a follow-up appointment for reevaluation. Return immediately to the emergency department if you develop any worsening or new concerning symptoms. Discharge Data Discharge Date/Time-TO BE ENTERED AT DEPARTURE: 04/19/21 14:59 Discharge Physician: Nena Merida Medical Decision Making 51-year-old male with a history of alcohol abuse, COPD, CVA, GERD, hypertension, TIA, recently diagnosed with left-sided sciatica and trochanteric bursitis presents for worsening of his chronic left hip pain with radiation to his left thigh for the past few weeks, worse today after shoveling snow. Blood pressure mildly hypertensive, remainder vitals within normal limits. Patient appears uncomfortable but nontoxic. He appears to have episodes of spasming in his left hip. Patient had an x-ray of the left hip in February which noted mild degenerative changes. As he denies any cauda equina symptoms or new direct blunt injury and there is no evidence of trauma or focal deficits, do not see an indication for repeat imaging at this time. Review of records note that patient had relief of his left hip pain with intra- articular steroid injection in February. Will administer an intra-articular s teroid injection now and will give patient a dose of prednisone, oxycodone and Valium p.o. He is allergic to ibuprofen so we will hold on Toradol. Patient reassessed and his symptoms improved. Will send home with a few tabs of muscle relaxer and send prescriptions for muscle relaxer and steroid electronically to his pharmacy. Advised to follow-up with his PCP for reevaluation and advised to likely hold on further physical therapy sessions until his pain is improved. Patient was able to ambulate and pain much improved prior to discharge. Usual and customary return precautions given prior to discharge. Medical Records Medical records reviewed: Yes I reviewed the patient's medical records. HPI General Mode of arrival: EMS . Date/Time Provider Initiated Documentation: 04/19/21 12:49 . Limitations to Documentation: no limitations . Information obtained by: patient . HPI Narrative: Patient is a 51-year-old male with a history of daily alcohol use and a tobacco smoker recently treated for left-sided sciatica and left trochanteric bursitis being followed by physical therapy presents for worsening left-sided hip and back pain for the past few weeks, worse since shoveling snow this morning. He states he has intermittent spasms in his left hip and the pain occasionally radiates to his left thigh. He has taken Tylenol for pain without relief. He denies saddle anesthesia, bowel or bladder incontinence, leg weakness or numbness. He states he drank 2 beers today. Related Data Home Medications Medication Instructions Recorded Confirmed ProAir RespiClick 90 mcg INHALATION Q6H PRN 09/22/17 03/26/21 triamcinolone acetonide 1 applic TOPICAL BID 02/15/18 04/19/21 hydrocortisone [Proctosol HC] 1 applic MD BID-QID PRN #28.35 gm 09/19/18 03/26/21 omeprazole 40 mg capsule,delayed 40 mg PO BID #60 cap 11/10/18 04/19/21 release budesonide-formoterol HFA 80 2 puff IH BID 05/14/19 04/19/21 mcg-4.5 mcg/actuation aerosol inhaler hydrocortisone 2.5 % topical cream 1 applic TP BID PRN 05/14/19 03/26/21 acetaminophen [Tylenol Extra 1,000 mg PO Q6H PRN 12/18/19 04/19/21 Strength] atorvastatin 20 mg tablet 20 mg PO DAILY #90 tab NS 08/14/20 04/19/21 metoprolol tartrate 25 mg tablet 25 mg PO BID #180 tab NS 08/14/20 04/19/21 folic acid 1 mg PO DAILY 04/19/21 04/19/21 methocarbamol 500 mg PO Q6H PRN #14 tab 04/19/21 minocycline 100 mg PO DAILY AM 04/19/21 04/19/21 prednisone See Rx Instructions .ROUTE 04/19/21 .COMPLEX #18 tab Previous Rx's Medication Instructions Recorded hydrocortisone [Proctosol HC] 1 applic MD BID-QID PRN #28.35 gm 09/19/18 omeprazole 40 mg capsule,delayed 40 mg PO BID #60 cap 11/10/18 release atorvastatin 20 mg tablet 20 mg PO DAILY #90 tab NS 08/14/20 metoprolol tartrate 25 mg tablet 25 mg PO BID #180 tab NS 08/14/20 methocarbamol 500 mg PO Q6H PRN #14 tab 04/19/21 prednisone See Rx Instructions .ROUTE 04/19/21 .COMPLEX #18 tab Allergies Allergy/AdvReac Type Severity Reaction Status Date / Time ibuprofen Allergy Mild Hives Verified 04/19/21 12:44 lisinopril Allergy Unknown Verified 04/19/21 12:44 General Stated Complaint: Nk/Back Pain DIANNA: 3 Review of Systems All systems reviewed & are unremarkable except as noted in HPI and below Constitutional Constitutional: Reports as per HPI, Denies chills and Denies fever(s) Eyes Eyes: Denies blurry vision ENT Ears, Nose, Mouth, and Throat: Denies dizziness, Denies sore throat and Denies throat swelling Cardiovascular Cardiovascular: Denies chest pain and Denies dyspnea Respiratory Respiratory: Denies cough and Denies dyspnea Gastrointestinal Gastrointestinal: Denies abdominal pain, Denies diarrhea and Denies vomiting Genitourinary Genitourinary: Denies hematuria and Denies dysuria Musculoskeletal Musculoskeletal: Denies back pain and Denies numbness Comments: L hip pain Integumentary/Breasts Skin/Breast: Denies lesions and Denies rash Neurologic Neurologic: Denies dizziness, Denies localized weakness and Denies numbness Allergic/Immunologic Allergic/Immunologic: Denies throat swelling [facility] Active Problem List (Updated 04/19/21 @ 14:12 by Nena Merida DO) Trochanteric bursitis of left hip (Acute) History of sciatica (Acute) Left sided sciatica (Acute) Bursitis, trochanteric (Acute) Hyperlipidemia (Acute) Bicuspid aortic valve (Acute) Infection of right mastoid bowl (Acute) Superficial mycosis (Acute) Otitis externa in other diseases classified elsewhere, bilateral (Acute) Infection of left mastoid bowl (Acute) Bicuspid aortic valve (Acute) Shortness of breath (Acute) Conductive hearing loss of both ears (Acute) Impetigo (Acute) Lateral epicondylitis, right elbow (Acute) 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 (Acute) Chronic anal fissure (Acute ~09/19/18) Colorectal polyp detected on colonoscopy (Acute ~09/19/18) Esophagitis (Acute ~09/19/18) Gastritis (Acute ~09/19/18) S/P colonoscopy (Acute ~09/19/18) Encounter for screening colonoscopy (Acute) Gastroesophageal reflux disease (Chronic) Sensorineural hearing loss, bilateral (Acute 03/08/13) Right rotator cuff tendinitis (Acute 02/04/17) Otitis externa (Acute 03/22/13) Mixed conductive and sensorineural hearing loss (Acute 03/10/15) Mixed hearing loss, bilateral (Acute 03/22/13) Impacted cerumen (Acute 06/14/13) Chronic mastoiditis of both sides (Acute 03/20/15) Chronic mastoiditis (Acute 03/22/13) Arthrosis of right shoulder region (Acute 02/04/17) Optic atrophy, left eye (Chronic) Medical History (Updated 04/19/21 @ 14:12 by Nena Merida DO) Alcoholism Allergic rhinitis Anxiety and depression Cholesteatoma COPD (chronic obstructive pulmonary disease) CVA (cerebral vascular accident) Diarrhea DJD (degenerative joint disease) Dyspnea on exertion Elbow pain GERD (gastroesophageal reflux disease) Hearing loss Hemorrhoids History of corrected cleft lip and palate HTN (hypertension) Insomnia Lumbosacral neuritis Mastoiditis Otitis externa Papular urticaria Right shoulder pain TIA (transient ischemic attack) Tobacco use disorder Surgical History Arthroscopy, Shoulder History of cataract surgery Tympanoplasty I Tympanoplasty II - IV Family History Other Asthma Cancer Diabetes Heart disease Social History Smoking/Tobacco Use Status: Current every day Tobacco Type: cigarettes Smoking packs per day: 0.5 Smoking cigarettes per day: 10.0 Years smoked: 40 Smoking pack-years: 20.00 Counseling given: counseling >3 minutes Smoking risk assessment performed?: Yes Alcohol Intake: current Alcohol Intake frequency: 3 or more drinks per day Alcohol type: beer Details: 12 pack ppd Drug use: Never Substance use type: does not use Details: 6 pack beer daily What type of physical activity do you participate in: none and additional Details: just walk/work Do you feel safe at home: Yes Do you feel safe in your relationship?: Yes Exam Const General: cooperative, healthy appearing and no acute distress HENMT Head: normal to inspection Face and sinus: normal facial exam Eyes General: appearance normal, both eyes and all related structures Pupils: PERRL EOM: EOM intact bilaterally Neck Neck: normal visual inspection and No submandibular swelling Lymphatic: no lymphadenopathy noted Chest Chest: normal inspection of the chest and no tenderness Resp Effort & Inspection: normal respiratory effort and able to speak in complete sentences Auscultation: clear to auscultation bilaterally Cardio Rate: regular rate Rhythm: regular rhythm GI Inspection: normal to inspection Palpation: soft, not firm, not rigid and nontender Auscultation: normal bowel sounds Male General Exam: Yes normal external exam Back/Spine/Pelvis Thoracic/Lumbar Spine: thoracic and lumbar spine normal to inspection Pelvis: no pain with anterior-posterior compression Skin General skin exam: no rashes or lesions noted Neuro General: patient alert, patient awake and patient oriented x3 Cognition: normal cognition Speech: speech normal Motor: muscle tone normal throughout Sensory Exam: no sensory deficits noted Extrem General: normal to inspection, full ROM, capillary refill normal, no calf tenderness bilaterally and no edema Psych Appearance: grossly normal Mental Status: mental status grossly normal Speech and Movement: speech and movement normal Affect: normal affect Course Vital Signs Vital signs: Vital Signs Temperature 97.0 F L 04/19/21 12:39 Pulse 66 04/19/21 12:39 Respiratory Rate 16 04/19/21 12:39 Blood Pressure 145/92 H 04/19/21 12:39 Pulse Oximetry 96 04/19/21 12:39 Temperature 97.0 F L 04/19/21 12:39 Temperature Source Temporal Artery Scan 04/19/21 12:39 Pulse 66 04/19/21 12:39 Respiratory Rate 16 04/19/21 12:39 Respiratory Effort 04/19/21 12:48 Blood Pressure 145/92 H 04/19/21 12:39 Blood Pressure Position Sitting 04/19/21 12:39 Pulse Oximetry 96 04/19/21 12:39 Oxygen Delivery Method Room Air 04/19/21 12:39 Oxygen Flow Rate 0 04/19/21 12:39 Pain Level 10 04/19/21 12:39 Procedures Bursa Procedures Time Out Performed: Yes Side of body: left Site of Procedure: trochanteric bursa Antisepsis Used: Chlorhexidine Local Anesthetic: Lidocaine 1% Amount of anesthesia used (mL): 4 Medication Injected: Triamcinolone Amount of medication used (mg): 40 Lidocaine Added to Medication: Yes Patient Tolerated Procedure: well Complications: none PAWSS Have you Been Recently Intoxicated or Drunk Within the Last 30 days?: Yes Have you Ever Experienced Previous Episodes of Alcohol Withdrawal?: Yes Have you ever Experienced Withdrawal Seizures?: No Have you ever Experienced Delirium Tremens(DT)s?: Yes Have you ever undergone Alcohol Rehabilitation Treatment (i.e, inpt ot outpatient treatment programs)?: Yes Have you ever Experienced Blackouts?: Yes Have you ever Combined Alcohol with other Downers within the last 90 days?: No Have you ever Combined Alcohol with any other Substance of Abuse during the last 90 days?: No Result: 5
[2021-04-19] MEDS: oxyCODONE 5 MG TAB PO (13:13)
[2021-04-19] MEDS: diazePAM 5 MG TAB PO (13:13)
[2021-04-19] MEDS: predniSONE 20 MG TAB 60 MG PO (13:13)
[2021-04-19] MEDS: Triamcinolone 40 MG/ML VIAL IM (14:15)
[2021-04-19 14:50] VITALS: BP 133/85; PULSE 74; RESP 16; O2SAT 95
[2021-04-19] MEDS: Methocarbamol 500 MG TAB 1000 MG PO (14:50)
== END 2021-04-19 14:59 | disposition home or self-care (01) ==
PROVIDERS: Emergency Provider Physician Assistant; PCP Family Medicine
DX: M70.62 Trochanteric bursitis, left hip (principal); M54.32 Sciatica, left side
CPT/HCPCS: 96372; 99284; 99283; J7512

== ENCOUNTER 2021-05-18 00:59 | Outpatient (CLI) | payer MEDICAID, SELFPAY ==
--- NOTE | 2021-05-18 08:45 | DI.MRI_ITS ---
Exam(s) MR LUMBAR SPINE WO EXAM: MR LUMBAR SPINE WO CLINICAL HISTORY: LUMBAGO WITH SCIATICA,RT SIDE, M54.41, PERSISTENT LBP RADIATING TO KAILEE LEGS. TECHNIQUE: Multiplanar multisequence MRI of the Lumbar spine was performed. COMPARISON: CR,XR XR HIP LT COMPLETE AP PELVIS from 03/09/2021 FINDINGS: Bones: The last intervertebral disc space is designated the L5/S1 level for the numbering purpose of this examination. The vertebral body heights are well maintained. Small endplate osteophytes proje cting mainly anteriorly. Alignment is satisfactory. The signal characteristics are unremarkable. Cord: The conus tip ends at the T12 level. It is of normal size and signal intensity. There is minimal disc bulging at multiple levels. No focal disc herniation at any level.. No centra l canal stenosis or neural foraminal narrowing. Minimal facet joint degenerative changes. Soft tissues: The visualized SI joints and sacrum are well maintained. The paraspinal soft tissues ar e unremarkable. IMPRESSION: Mild degenerative disc changes. No disc herniation or evidence of significant spinal stenosis or amando roforaminal narrowing. DATA REPOSITORY:
== END 2021-05-18 01:19 ==
PROVIDERS: PCP Family Medicine; Visit Provider Family Medicine
DX: M54.41 Lumbago with sciatica, right side (principal); M54.42 Lumbago with sciatica, left side; M51.17 Intervertebral disc disorders with radiculopathy, lumbosacral region; M47.27 Other spondylosis with radiculopathy, lumbosacral region
CPT/HCPCS: 72148

== ENCOUNTER 2021-05-21 02:57 | Emergency (ER) | payer MEDICAID, SELFPAY ==
[2021-05-21 02:56] VITALS: BP 131/93; PULSE 70; RESP 18; TEMP 36.8; O2SAT 98
--- NOTE | 2021-05-21 02:57 | ED.GENADUL_ITS ---
Discharge Plan Disposition Patient Disposition: OTHER Condition: Stable Discharge Details Chief Complaint: Laceration Clinical Impression: Alcohol intoxication, Forehead laceration Primary Care Provider: Cristel Ramos ED Provider: Trell Nicholson [place] Meds and New Rx's Prescriptions: No Action omeprazole 40 mg capsule,delayed release(DR/EC) 40 mg PO BID Qty: 60 RF: 3 ProAir RespiClick 90 MCG aerosol powdr breath activated 90 mcg Inhalation Q6H PRN RF: 0 budesonide-formoterol [Symbicort] 80-4.5 mcg/actuation HFA aerosol inhaler 2 puff IH BID RF: 0 hydrocortisone 2.5 % cream 1 applic TP BID PRNRF: 0 metoprolol tartrate 25 mg tablet 25 mg PO BID Qty: 180 RF: 6 atorvastatin 20 mg tablet 20 mg PO DAILY Qty: 90 RF: 6 triamcinolone acetonide 0.1 % Cream 1 applic TOPICAL BID RF: 0 folic acid 1 mg tablet 1 mg PO DAILY RF: 0 minocycline 100 mg capsule 100 mg PO DAILY AM RF: 0 prednisone 20 mg tablet See Rx Instructions .ROUTE .COMPLEX Qty: 18 RF: 0 methocarbamol 500 mg tablet 500 mg PO Q6H PRN (Reason: muscle spasm) Qty: 14 RF: 0 hydrocortisone [Proctosol HC] 2.5 % cream with perineal applicator 1 applic MD BID-QID PRN (Reason: hemorrhoids) Qty: 28.35 RF: 0 acetaminophen [Tylenol Extra Strength] 500 mg Tablet 1,000 mg PO Q6H PRN (Reason: Pain) RF: 0 Discharge Data Discharge Date/Time-TO BE ENTERED AT DEPARTURE: 05/21/21 05:10 Medical Decision Making Patient arrives status post fall with significant alcohol intoxication. Initially does have collar on but repeatedly takes it off. Laceration to his forehead is a superficial flap. This was cleaned by nursing and flap secured back down with skin adhesive by nursing. CT scan of head and cervical spine ordered. Unable to obtain as patient unable to cooperate and hold still. Return to ED and EKG done. There is no prolonged QT. There is no acute ST changes. Haldol 10 mg IM given. Able to obtain CT after this. While waiting for results to return patient removed his collar, stating that he was not going to wait around anymore. Proceeded to get himself dressed and put his boots on. He then became somewhat agitated and despite security and nursing attempting to redirect him he left the hospital and began walking down the roadway. [facility] was contacted. CT scan of the head came back negative. CT scan of the cervical spine negative for acute fracture. [facility] instructed that they should take the patient into protective custody and have mental health performed IEP. He did not need return to ED given negative scans but was not safe to be unsupervised until sober. HPI General Mode of arrival: EMS . Date/Time Provider Initiated Documentation: 05/21/21 03:14 . Information obtained by: patient, EMS and RN notes reviewed . HPI Narrative: Patient presents to the ED status post fall. Patient is highly intoxicated and has been drinking heavily. He does have a laceration to his forehead. He is in a collar. He is mostly cooperative. He is unable to answer questions in any meaningful way. He has no complaint of pain but also has no recollection of what occurred. Related Data Home Medications Medication Instructions Recorded Confirmed ProAir RespiClick 90 mcg INHALATION Q6H PRN 09/22/17 03/26/21 triamcinolone acetonide 1 applic TOPICAL BID 02/15/18 04/19/21 hydrocortisone [Proctosol HC] 1 applic MD BID-QID PRN #28.35 gm 09/19/18 03/26/21 omeprazole 40 mg capsule,delayed 40 mg PO BID #60 cap 11/10/18 04/19/21 release budesonide-formoterol HFA 80 2 puff IH BID 05/14/19 04/19/21 mcg-4.5 mcg/actuation aerosol inhaler hydrocortisone 2.5 % topical cream 1 applic TP BID PRN 05/14/19 03/26/21 acetaminophen [Tylenol Extra 1,000 mg PO Q6H PRN 12/18/19 04/19/21 Strength] atorvastatin 20 mg tablet 20 mg PO DAILY #90 tab NS 08/14/20 04/19/21 metoprolol tartrate 25 mg tablet 25 mg PO BID #180 tab NS 08/14/20 04/19/21 folic acid 1 mg PO DAILY 04/19/21 04/19/21 methocarbamol 500 mg PO Q6H PRN #14 tab 04/19/21 minocycline 100 mg PO DAILY AM 04/19/21 04/19/21 prednisone See Rx Instructions .ROUTE 04/19/21 .COMPLEX #18 tab Previous Rx's Medication Instructions Recorded hydrocortisone [Proctosol HC] 1 applic MD BID-QID PRN #28.35 gm 09/19/18 omeprazole 40 mg capsule,delayed 40 mg PO BID #60 cap 11/10/18 release atorvastatin 20 mg tablet 20 mg PO DAILY #90 tab NS 08/14/20 metoprolol tartrate 25 mg tablet 25 mg PO BID #180 tab NS 08/14/20 methocarbamol 500 mg PO Q6H PRN #14 tab 04/19/21 prednisone See Rx Instructions .ROUTE 04/19/21 .COMPLEX #18 tab Allergies Allergy/AdvReac Type Severity Reaction Status Date / Time ibuprofen Allergy Mild Hives Verified 04/19/21 12:44 lisinopril Allergy Unknown Verified 04/19/21 12:44 General DIANNA: 3 Review of Systems Unobtainable due to mental status PFSH All Active Problems (Updated 05/21/21 @ 07:37 by Trell Nicholson MD) Alcohol intoxication (Acute) Forehead laceration (Acute) Allergic rhinitis (Acute) Trochanteric bursitis of left hip (Acute) History of sciatica (Acute) Left sided sciatica (Acute) Bursitis, trochanteric (Acute) Hyperlipidemia (Acute) Bicuspid aortic valve (Acute) Infection of right mastoid bowl (Acute) Superficial mycosis (Acute) Otitis externa in other diseases classified elsewhere, bilateral (Acute) Infection of left mastoid bowl (Acute) Bicuspid aortic valve (Acute) Shortness of breath (Acute) Conductive hearing loss of both ears (Acute) Impetigo (Acute) Lateral epicondylitis, right elbow (Acute) 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 (Acute) Chronic anal fissure (Acute ~09/19/18) Colorectal polyp detected on colonoscopy (Acute ~09/19/18) Esophagitis (Acute ~09/19/18) Gastritis (Acute ~09/19/18) S/P colonoscopy (Acute ~09/19/18) Encounter for screening colonoscopy (Acute) Gastroesophageal reflux disease (Chronic) Sensorineural hearing loss, bilateral (Acute 03/08/13) Right rotator cuff tendinitis (Acute 02/04/17) Otitis externa (Acute 03/22/13) Mixed conductive and sensorineural hearing loss (Acute 03/10/15) Mixed hearing loss, bilateral (Acute 03/22/13) Impacted cerumen (Acute 06/14/13) Chronic mastoiditis of both sides (Acute 03/20/15) Chronic mastoiditis (Acute 03/22/13) Arthrosis of right shoulder region (Acute 02/04/17) Optic atrophy, left eye (Chronic) Medical History Alcoholism Anxiety and depression Cholesteatoma COPD (chronic obstructive pulmonary disease) CVA (cerebral vascular accident) DJD (degenerative joint disease) Dyspnea on exertion GERD (gastroesophageal reflux disease) Hearing loss Hemorrhoids History of corrected cleft lip and palate HTN (hypertension) Insomnia Lumbosacral neuritis Mastoiditis Otitis externa Papular urticaria TIA (transient ischemic attack) Tobacco use disorder Surgical History Arthroscopy, Shoulder History of cataract surgery Tympanoplasty I Tympanoplasty II - IV Family History Other Asthma Cancer Diabetes Heart disease Social History Smoking/Tobacco Use Status: Current every day Tobacco Type: cigarettes Smoking packs per day: 0.5 Smoking cigarettes per day: 10.0 Years smoked: 40 Smoking pack-years: 20.00 Counseling given: counseling >3 minutes Smoking risk assessment performed?: Yes Alcohol Intake: current Alcohol Intake frequency: 3 or more drinks per day Alcohol type: beer Details: 12 pack ppd Drug use: Never Substance use type: does not use Details: 6 pack beer daily What type of physical activity do you participate in: none and additional Details: just walk/work Do you feel safe at home: Yes Do you feel safe in your relationship?: Yes Exam Narrative Exam Narrative: Const: Thin much older appearing than stated age male in NAD. HEENT: NC. Flap laceration/abrasion to forehead. Eyes: PERRL and EOMI. Neck: Trachea midline. Cervical collar in place. Lungs: Normal respiratory effort. Lungs are clear. Cor: RRR without murmur/gallop. Good radial pulses. GI: Soft. NT/ND. Neuro: Awake but altered. Slurred speech. Cranial nerves II - XII grossly intact. No gross motor or sensory deficit. Ext: No deformity or tenderness. Normal ROM. Skin: Warm and dry with laceration as described above.
--- NOTE | 2021-05-21 03:00 | DI.CT_ITS ---
Exam(s) CT HEAD CERVICAL SPINE WO EXAM: CT HEAD CERVICAL SPINE WO CLINICAL HISTORY: intoxicated/fall. TECHNIQUE: Imaging Protocol: Axial computed tomography images with coronal and sagittal reformatted images were created and reviewed COMPARISON: CT TEMPORAL BONE WITH CONTRAST from 05/05/2010 FINDINGS: Study limited secondary to uncooperative patient. CT Head: Ventricles and Extra axial spaces: Normal in size and morphology for the patient's age. Hemorrhage: None. Cerebral parenchyma: Normal. Midline shift: None. Brainstem/Cerebellum: Normal. Calvarium: Normal. Visualized Paranasal sinuses/Mastoids: Mucous retention cysts or polyps in the maxillary sinus. The remaining visualized paranasal sinuses are clear. Status post bilateral mastectomies. Soft Tissues: Mild soft tissue swelling over the frontal bones. CT Cervical Spine: Bones: No acute fracture or subluxation. There is an old fracture of the odontoid tip with posterior displacement. This is unchanged compared to the CT scan of the temporal bones from 05/05/2010 mild d egenerative changes are seen in the cervical spine. The examination extends to the C6-C7 level. Soft Tissues: Unremarkable. Lung Apices: Not included on this examination. IMPRESSION: 1. No acute intracranial process. 2. No acute cervical spine fracture or subluxation. 3. Old C2 injury. RADIATION DOSE DELIVERED: 808.65 mGy.cm Total DLP DATA REPOSITORY: All CT scans at this facility are submitted to the National Radiology Data Registry (NRDR) Dose Index Registry (DIR) with the [employer] (A[employer]). RADIATION OPTIMIZATION: All CT scans at this facility use at least one of these dose optimization te chniques: automated exposure control; mA and/or kV adjustment per patient size (includes targeted exa ms where dose is matched to clinical indication); or iterative reconstruction.
--- NOTE | 2021-05-21 03:30 | RT.EKG_ITS ---
APPROVED REPORT Exam: Resting ECG Reason for Exam: check intervals Patient Location: E HR:85 bpm ECG Measurements Heart Rate 85 AXIS MD 151 P 61 QRSd 105 QRS 61 QT 404 T 26 QTc 481 Conclusion Sinus rhythm...normal P axis, V-rate 60- 99 Probable left ventricular hypertrophy...multiple LVH criteria ST elev, probable normal early repol pattern...ST elevation, age<53 I have reviewed and interpreted ECG and agree with software generated interpretation. There are no significant changes compared to prior EKG performed on 12/18/2019 at 21:25.
[2021-05-21] MEDS: Haloperidol 5 MG/ML VIAL 10 MG IM (03:52)
--- NOTE | 2021-05-21 05:07 | DI.VRAD_ITS ---
PROCEDURE INFORMATION: Exam: CT Head Without Contrast Exam date and time: 05/21/2021 4:26 AM Age: 51 years old Clinical indication: Other: Intoxicated, fall TECHNIQUE: Imaging protocol: Computed tomography of the head without contrast. COMPARISON: CT HEAD CERVICAL SPINE WO 05/21/2021 3:24 AM FINDINGS: Brain: Mild volume loss No hemorrhage. Mild white matter disease. No mass effect. Cerebral ventricles: No ventriculomegaly. Paranasal sinuses: Polypoid tissue in the maxillary sinuses. No fluid levels. Mastoid air cells: Bilateral mastoidectomies. Mastoidectomy bowl is a are grossly clear. Bones/joints: Unremarkable. No acute fracture. Soft tissues: Mild left frontal scalp swelling IMPRESSION: No acute intracranial hemorrhage PROCEDURE INFORMATION: Exam: CT Cervical Spine Without Contrast Exam date and time: 05/21/2021 4:26 AM Age: 51 years old Clinical indication: Other: Intoxicated, fall TECHNIQUE: Imaging protocol: Computed tomography images of the cervical spine without contrast. COMPARISON: CT HEAD CERVICAL SPINE WO 05/21/2021 3:24 AM FINDINGS: Chronic odontoid tip fracture with posterior displacement of the superior fragment No acute fracture. Alignment is otherwise grossly maintained to the C6-C7 level. No significant central canal stenosis. Severe foraminal stenosis at C6-C7 No prevertebral swelling IMPRESSION: No acute cervical fracture detected Chronic C2 injury as described Dictated and Authenticated by: Frandy Marte MD. Ordering:GALDINO Cai MD
--- NOTE | 2021-05-21 05:15 | SUR.PHASEI ---
pt became beligerant and left unable to redirect pt state police called at [id number] for patient elopement
== END 2021-05-21 05:10 | disposition other institution (70) ==
LOC: ER 03:57
PROVIDERS: Emergency Provider Emergency Medicine; PCP Family Medicine
DX: S01.81XA Laceration without foreign body of other part of head, initial encounter (principal); W18.39XA Other fall on same level, initial encounter; F10.129 Alcohol abuse with intoxication, unspecified; R45.1 Restlessness and agitation; Z53.29 Procedure and treatment not carried out because of patient's decision for other reasons
CPT/HCPCS: 93005; 96372; 99284; 70450; 72125; 93010; J1630

== ENCOUNTER → 2021-10-06 01:55 | Outpatient (CLI) | payer MEDICAID, SELFPAY ==
--- NOTE | 2021-10-06 15:00 | DI.US_ITS ---
APPROVED REPORT EXAM: Comprehensive 2D, Doppler, and color-flow Echocardiogram Other Information Study Quality: Adequate Conclusion Normal left ventricular wall thickness and chamber size. Estimated ejection fraction is 60%. Wall m otion is normal Normal right ventricular size and systolic function Both atria are normal in size The aortic valve is sclerotic and bicuspid. There is mild aortic stenosis with a peak gradient of 23 , mean of 15, calculated aortic valve area of 1.47 cm?? Normal mitral valve with trace regurgitation Normal tricuspid valve with trace regurgitation. Estimated right ventricular systolic pressure is 25 mmHg The ascending aorta is normal in size measuring 3.22 cm Wall motion Left Ventricle The left ventricle is normal size. The left ventricular systolic function is normal. The left ventric ular ejection fraction is within the normal range. There is normal left ventricular wall thickness. T here is normal LV segmental wall motion. There is no ventricular septal defect visualized. LVEF is 60 %. Right Ventricle The right ventricle is normal size. The right ventricular systolic function is normal. The RVSP is 21 .0 mmHg. Atria The left atrium size is normal. The right atrium size is normal. The interatrial septum is intact wit h no evidence for an atrial septal defect. Aortic Valve The Aortic valve is sclerotic. Aortic valve is bicuspid. Mild aortic stenosis. Peak aortic valve grad ient is 24.7mmHg. Highest mean aortic valve gradient is 14.9mmHg. Calculated DOROTHY by the continuity eq uation is 1.41cm2. No aortic regurgitation is present. Mitral Valve The mitral valve is normal in structure. No evidence of mitral valve stenosis. Trace mitral regurgita tion. There is no evidence of mitral valve vegetations. Tricuspid Valve The tricuspid valve is normal in structure. There is no tricuspid valve stenosis. Trace tricuspid reg urgitation. Pulmonic Valve The pulmonary valve is normal in structure. There is no pulmonic valvular stenosis. There is no pulmo yelitza valvular regurgitation. Great Vessels The aortic root is normal in size. The ascending aorta is normal in size. Aortic arch is normal in ca liber. IVC is normal in size and collapses >50% with inspiration. Pericardium There is no pericardial effusion. 2D Dimensions IVSD d PLAX 1.10 cm M: 0.6-1.2 LV Vol A2C d MOD 121.4 mL LVPW d PLAX 1.12 cm M: 0.6 - 1.2 LV Vol A4C d MOD 115.3 mL LVID d PLAX 5.10 cm M: 4.2 - 5.8 LA vol/ BSA A2C s A-L 18.9 mL/m2 LVDs 3.35 cm M: 2.5 - 4.0 LA vol/ BSA A4C s A-L 29.0 mL/m2 Ao Root d 3.62 cm M: 3.1 - 3.7 LA Vol/ BSA Biplane s A-L 26.7 mL/m2 RA Area A4C 15.17 cm2 LA Area A4C s MOD 17.44 cm2 RA Vol/ BSA A4C s A-L 24.5 mL/m2 LA Area A2C s MOD 12.32 cm2 Ao Asc Diam d 3.22 cm M: 2.6 - 3.4 LV EF A4C MOD 60.5 % LV EF Teichholz 62.7 % LV EF A2C MOD 60.5 % LVEF (Vu's) 62.14 % M: 52 - 72 LV EF Biplane MOD 62.1 % LV Volume 100.52 mL M: 62 - 150 SV 76.68 mL LV Volume Index 63.22 mL/m2 M: 34 - 74 SV Index 48.24 mL/m2 LV Vol Biplane MOD 123.4 mL FS 34.05 % M-Mode TAPSE 2.38 cm (M/F) >1.7 LV Diastology MV E' medial 0.112 (>0.07 m/s) E/A Ratio 0.7 LV E/e MED 5.20 (<14) MV E Vmax 0.59 (0.4-1.3 m/s) MV E' lateral 0.111 (>0.1 m/s) MV A Vmax 0.80 (0.4-1.3 m/s) LV E/e LAT 5.25 (<14) MV E/A Ratio 0.70 MV E/E' medial 5.22 MV E/E' lateral 5.27 Aortic Valve LVOT Area 3.78 cm2 AoV Area Vmax 1.41 cm2 LVOT Vmax 0.93 m/s AoV Area/ BSA (Vmax) 0.89 cm2/m2 LVOT Mean Kevan. 0.71 m/s DOROTHY Mean Kevan. 1.47 cm2 LVOT Peak Grad 3.5 mmHg DOROTHY Mean Kevan. Index 0.93 cm2/m2 LVOT Mean Grad 2.2 mmHg LVOT VTI 0.175 m LVOT Diam s 2.15 cm AoV Vmax 2.49 m/s Velocity Ratio 0.37 AoV Mean Kevan. 1.83 m/s AoV Peak Grad 24.7 mmHg LVOT SV 66.07 mL AoV Mean Grad 14.9 mmHg AoV VTI 0.510 m AoV Area VTI 1.29 cm2 AoV Area/ BSA (VTI) 0.81 cm/m2 Mitral Valve MV DT 362 (160-240 msec) MV PHT 105 msec MV Area PHT 2.10 cm2 MV VTI 0.224 m MV Area VTI 2.94 (4.0-6.0 cm2) Pulmonary Valve PV Vmax 0.99 (0.5-1.5 m/s) RVOT Peak Gr. 1.95 mmHg PV Peak Grad 4.0 mmHg RVOT Mean Gr. 0.90 mmHg PV Mean Grad 2.1 mmHg RVOT VTI 0.149 m PV VTI 0.198 m RVOT Vmax 0.70 m/s Tricuspid Valve TR Peak Grad 17.9 mmHg TR Vmax 2.12 m/s RA Pressure 3.00 mmHg RVSP (TR) 21.0 mmHg
== END ==
PROVIDERS: PCP Family Medicine; Visit Provider Internal Medicine Cardiovascular Disease
DX: Q23.1 Congenital insufficiency of aortic valve (principal)
CPT/HCPCS: 93306

== ENCOUNTER → 2021-12-07 01:51 | Outpatient (CLI) | payer MEDICAID, SELFPAY ==
--- NOTE | 2021-12-07 09:10 | DI.CTLCSR_ITS ---
Exam(s) CT CHEST LUNG CANCER SCREEN EXAM: CT CHEST LUNG CANCER SCREEN CLINICAL HISTORY: SMOKER F17.209 COPD J44.9, SCREENING FOR LUNG CANCER. TECHNIQUE: Imaging Protocol: Low Dose Technique CONTRAST MATERIAL: None COMPARISON: CT CT CHEST LUNG CANCER SCREEN from 11/24/2020 FINDINGS: CHEST: LUNGS: Mild increased markings noted in the medial basal segment of the right lower lobe, more so luz n previous. Benign-appearing. No associated pleural effusion. There are no confluent infiltrates. No pleural effusions. MEDIASTINUM: There is no obvious hilar nor mediastinal adenopathy. CARDIAC: Heart size is normal. There is no pericardial effusion.Caliber of the thoracic aorta is wit hin normal limits. OTHER: OSSEOUS: No significant osseous lesions.. IMPRESSION: 1. Mild benign-appearing increased markings in the medial basal segment of the right lower lobe, not associated with pleural fluid. 2. No obvious intrathoracic adenopathy. 3. Lung RADS Cat 2 - Benign Appearance / Behavior: Nodules with a very low likelihood of becoming a c linically active cancer due to size or lack of growth Lung-RADS 1.0 CATEGORIES: Category 0 - Prior chest CT exam(s) being located for comparison. Category 1 - Annual screening in 12 months. No nodules or definitely benign nodules. Category 2 - Annual screening in 12 months. Benign appearance. Nodules with low likelihood of becomin g active cancer. Category 3 - 6-month follow-up. Probably benign. Short-term follow-up suggested. Nodules with low lik elihood of becoming active cancer. Category 4A - 3-month follow-up and CT/PET if >8 mm in size. Suspicious finding. Findings which requi re additional testing. Category 4B - Findings which require additional testing and tissue sampling. Category 4X - Category 3 or 4 nodules with additional features or imaging findings that increases the suspicion of malignancy. Modifier S- Potentially clinically significant findings (non lung cancer) RADIATION DOSE DELIVERED: 81.4mGy.cm Total DLP 1.84mGy CTDIvol DATA REPOSITORY: All CT scans at this facility are submitted to the National Radiology Data Registry (NRDR) Dose Index Registry (DIR) with the [employer] (A[employer]). RADIATION OPTIMIZATION: All CT scans at this facility use at least one of these dose optimization te chniques: automated exposure control; mA and/or kV adjustment per patient size (includes targeted exa ms where dose is matched to clinical indication); or iterative reconstruction.
== END ==
PROVIDERS: PCP Family Medicine; Visit Provider Family Medicine
DX: J44.9 Chronic obstructive pulmonary disease, unspecified (principal); F17.210 Nicotine dependence, cigarettes, uncomplicated; Z12.2 Encounter for screening for malignant neoplasm of respiratory organs; R91.8 Other nonspecific abnormal finding of lung field
CPT/HCPCS: 71271

== ENCOUNTER 2022-05-04 09:40 | Outpatient (CLI) | payer MEDICAID, SELFPAY ==
--- NOTE | 2022-05-04 06:00 | DI.RAD_ITS ---
Exam(s) XR PAIN CLINIC SACRIOILIAC 2V EXAM: XR PAIN CLINIC SACRIOILIAC 2V CLINICAL HISTORY: Dx: Sacroiliac Joint Dysfunction TECHNIQUE: 2D and realtime digital imaging was performed. Radiologist not present. CONTRAST MATERIAL: None. COMPARISON: No exams were available for comparison FINDINGS: Fluoroscopy was provided for pain management therapy. Please refer to procedure report or details. Cumulative dose: Ka,r=1.31 mGy IMPRESSION: RADIATION DOSE DELIVERED:
[2022-05-04 09:53] VITALS: BP 113/79; PULSE 82; RESP 20; TEMP 36.8; O2SAT 99
--- NOTE | 2022-05-04 10:30 | PDOC.PAIN_ITS ---
Date of service: 05/04/22 Time of Service: 10:31 Pain Clinic Procedure Note Procedure Note Procedure Note: INTRA-ARTICULAR SI JOINT INJECTION Richie Cortez has been referred to the [facility] for intra- articular SI joint injection. 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 He presents for left SI joint injection today. Patient was interviewed and the medical record reviewed. There were no medical, pharmacologic, radiographic or other structural contraindications to attempting fluoroscopically guided intra-articular SI joint injection. Risks and expected side effects as well as potential benefit of the procedure were reviewed and voiced concerns addressed. The printed consent form was signed and witnessed. Standard time-out procedure was performed. Patient was placed in the prone position on the fluoroscopy table and automated blood pressure cuff and pulse oximeter applied. The skin entry point for approaching left SI joints was identified under the most advantageous fluoroscopic view and marked. Following thorough Chlorhexadine preparation of the skin and draping and 1% lidocaine infiltration of the skin entry point and subcutaneous tissues, a 22 gauge spinal needle was placed under fluoroscopic guidance into left SI joints was identified under the most advantageous fluoroscopic view and marked. Following thorough Chlorhexadine preparation of the skin and draping and 1% lidocaine infiltration of the skin entry point and subcutaneous tissues, a 22 gauge spinal needle was placed under fluoroscopic guidance into LEFT SI joint. Intra-articular placement was confirmed by a clear arthrogram resulting from the injection of 0.25ml Omnipaque 240, 1ml 1% lidocaine, and 40mg Depomedrol were injected intra-articularily with an initial reproduction of a significant component of the usual pain. Vital signs were stable throughout the procedure and were as recorded in the docflowsheet by the nursing staff. Follow up plans and appointments were discussed with the patient. Post procedure instruction was given as documented in nursing documentation and having met discharge criteria, and was discharged from the [facility]. COMMENTS: Pre-procedure VAS score 7/10. Immeidately post-procedure VAS score 5/10. Wing Banegas MD Pain Management CC: Cristel Ramos
[2022-05-04] MEDS: methylPREDNISolone ACETATE 80 MG/ML VIAL IJ (10:36)
[2022-05-04] MEDS: Omnipaque 240 MG/ML 50 ML BTL IJ (10:36)
[2022-05-04 10:37] VITALS: BP 134/84; PULSE 76; RESP 17; O2SAT 97
== END 2022-05-04 09:41 | disposition home or self-care (01) ==
LOC: PC 09:40
PROVIDERS: PCP Family Medicine; Visit Provider Internal Medicine
DX: M53.3 Sacrococcygeal disorders, not elsewhere classified (principal)
CPT/HCPCS: 27096; 72200; J1040; Q9967

== ENCOUNTER 2022-05-13 11:55 | Outpatient (REF) | payer MEDICAID, SELFPAY ==
[2022-05-13 15:59] LABS: HCT 50.5 % (40.0-50.0); HGB 17.3 g/dL (13.5-17.5); MCH 31.6 pg (27.0-33.0); MCHC 34.3 % (32.0-36.0); MCV 92 fL (80-95); MPV 9.8 fL (8.0-11.0); Platelet Count 339 10^3/uL (130-400); RBC 5.47 10^6/uL (4.36-5.78); RDW 13.9 % (11.8-14.1); RDW-SD 47.7 fL; WBC 9.45 10^3/uL (4.4-10.8)
[2022-05-13 16:14] LABS: ALT 21 U/L (16-63); AST 24 U/L (15-37); Alkaline Phosphatase 93 U/L (46-116); Anion Gap 10.2 mmol/L (3-11); BUN 10 mg/dL (7-18); Bilirubin, Total 0.5 mg/dL (0.2-1.0); CO2 24.8 mmol/L (21.0-32.0); CREATININE 0.9 mg/dL (0.70-1.30); Calcium 9.6 mg/dL (8.5-10.1); Chloride 102 mmol/L (98-107); Estimated GFR 101.49 (mL/min/1.73m2); Glucose 106 mg/dL (74-106); Potassium 4.3 mmol/L (3.5-5.1); Sodium 137 mmol/L (136-145); Total Protein 7.5 g/dL (6.4-8.2)
== END 2022-05-13 11:56 | disposition home or self-care (01) ==
LOC: NCHCN 11:55
PROVIDERS: PCP Family Medicine; Visit Provider Family Medicine
DX: I10 Essential (primary) hypertension (principal); Z00.00 Encounter for general adult medical examination without abnormal findings
CPT/HCPCS: 80053; 85027

== ENCOUNTER 2022-05-28 08:21 | Day surgery (SDC) | payer MEDICAID, SELFPAY ==
[2022-05-28 08:25] VITALS: BP 123/104; PULSE 82; RESP 16; TEMP 36; O2SAT 97
[2022-05-28 08:39] VITALS: RESP 8
[2022-05-28] MEDS: Albuterol/Ipratropium 3 ML UPD VIAL UPD (08:39)
--- NOTE | 2022-05-28 08:56 | W.PM.ENDDOP ---
Date of service: 05/28/22 Time of Service: 10:07 Endoscopy Report PROCEDURE DESCRIPTION: Procedures performed: 1.? 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 Multiple lifestyle factors which are contributors to foregut issues. He had duodenitis and Vázquez's esophagus found on last endoscopy 3-4 years ago. He is up-to-date on colonoscopy. Findings: - D3, D2 and D1 -patchy areas of erosions but no vanessa ulceration. Biopsies taken with cold forceps technique. - Pylorus - patent.? No bile reflux visualized during procedure. - Antrum - no visible ulcerations or acute inflammation. Biopsies taken to rule out incidental H. pylori - Stomach Body - appearance is that of chronic gastritis, makes me think of atrophic gastritis biopsies were taken in a couple different locations accordingly. - Fundus -persistent chronic gastritis appearance, no polyps, no ulcerations. - Hiatus - Retroflexion showed a moderate?size type I sliding hiatal hernia (2-3 cm slide) - Esophagus - I did not appreciate any visible changes that look like Vázquez's or even active esophagitis. There were no mucosal tears or breaks and overall the appearance was quite benign?looking. I took cold forceps biopsies routinely about 1-2 cm above the true GE junction (4-5 cm above the sliding hiatal hernia) and then I took cold forceps biopsies separately of the midesophagus. - Cords/hypopharynx - Normal OVERALL - No visible findings suggestive of Vázquez's esophagus. Mild inflammatory changes that have a chronic?appearance to them in the stomach and the duodenum. Surveillance/follow-up recommendations: Pending biopsy results, it does not look like he needs to be continued on Vázquez's esophagus surveillance if it has truly regressed. He can follow-up with his PCP for continued management strategies on the other mild, chronic inflammatory findings. Lifestyle and dietary modifications are probably indicated. Complications: None Blood loss: Minimal Specimens:? YES Procedure in detail: Written consent was obtained from the patient who was in agreement with the risks, benefits and indications of the procedure.? We went to the endoscopy suite and laid the patient in left lateral decubitus position.? Anesthesia was administered which was tolerated well.? A timeout was performed and when we are all in agreement we began the procedure. A well?lubricated endoscope was advanced without difficulty down the esophagus, into the stomach, through a patent pylorus and into the duodenum.? It was then slowly pulled back with findings noted above. The scope was then removed and the patient tolerated the procedure well and was then taken to the PACU in hemodynamically stable condition.
[2022-05-28] MEDS: Lactated Ringers 1,000 ML 80 ML IV (09:12)
--- NOTE | 2022-05-28 09:22 | W.ANESPRE ---
General Info Date of Service Date Performed: 05/28/22 Height: 5 ft 9 in Weight: 63.8 kg Body Mass Index (BMI): 20.7 Surgical Procedure: Operation Date: 05/28/22 10:35 Proposed Procedure Side Surgeon p Gastroscopy w/Biopsy Yony Sood MD Meds Allergies and Home Medications Allergies Allergy/AdvReac Type Severity Reaction Status Date / Time ibuprofen Allergy Mild Hives Verified 05/28/22 08:51 lisinopril Allergy Unknown cough Unverified 05/28/22 08:51 Home Medication Medication Instructions Recorded albuterol sulfate 90 mcg/actuation 90 mcg inhalation Q6H PRN 09/22/17 breath activated powder inhaler (ProAir RespiClick) hydrocortisone 2.5 % topical cream 1 applic NM BID-QID PRN 09/19/18 with perineal applicator hemorrhoids #28.35 grams (Proctosol HC) budesonide-formoterol HFA 80 2 puff inhalation BID 05/14/19 mcg-4.5 mcg/actuation aerosol inhaler (Symbicort) acetaminophen 500 mg tablet 1,000 mg PO Q6H PRN Pain 12/18/19 (Tylenol Extra Strength) atorvastatin 20 mg tablet 20 mg PO DAILY #90 tabs 08/14/20 ipratropium 0.5 mg-albuterol 3 mg 3 ml inhalation TID PRN 12/30/21 (2.5 mg base)/3 mL nebulization soln metoprolol tartrate 25 mg tablet 25 mg PO BID #180 tabs 01/11/22 folic acid 1 mg tablet 1 mg PO DAILY 05/24/22 gabapentin 300 mg capsule 300 mg PO TID 05/24/22 magnesium oxide 400 mg PO DAILY 05/24/22 mirtazapine 7.5 mg tablet 7.5 mg PO QHS 05/24/22 omeprazole 40 mg capsule,delayed 40 mg PO DAILY #90 caps 05/24/22 release triamcinolone acetonide 0.1 % 1 applic topical BID 05/24/22 topical cream Current Visit Medications: Current Medications Generic Name Dose Route Start Last Admin Trade Name Freq PRN Reason Stop Dose Admin Albuterol/Ipratropium 3 ml 05/28/22 06:00 05/28/22 08:39 Albuterol/Ipratropium 3 Ml Upd Vial UPD 05/28/22 18:00 3 ml PREOP WANDY Administration Ringer's Solution 1,000 mls @ 80 mls/hr 05/28/22 06:00 05/28/22 09:12 IV 05/28/22 23:59 80 mls/hr INFUSION WANDY Administration IV Miscellaneous Supplies 1 each 05/28/22 06:00 Iv Access IV 05/28/22 23:59 DIRECTED WANDY Sodium Chloride 0 ml 05/28/22 06:00 Normal Saline Flush 10 Ml Syr IV 05/28/22 23:59 PRN PRN Sodium Chloride 0 ml 05/28/22 06:00 Normal Saline 10 Ml Vial IJ 05/28/22 23:59 DIRECTED PRN Sterile Water 0 ml 05/28/22 06:00 Water,Injection,Sterile 10 Ml Vial IJ 05/28/22 23:59 DIRECTED PRN PFSH Active Problems Active Problems: Problem Status Onset Code Bicuspid aortic valve Allergic rhinitis Posterior subcapsular age-related cataract of left eye 02/20/18 H25.042 Mature cataract 02/20/18 H26.9 Optic atrophy, left eye H47.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 of right shoulder region 02/04/17 M19.011 Chronic mastoiditis 03/22/13 H70.10 Chronic mastoiditis of both sides 03/20/15 H70.13 Impacted cerumen 06/14/13 H61.20 Otitis externa 03/22/13 H60.90 Right rotator cuff tendinitis 02/04/17 M75.81 Gastroesophageal reflux disease K21.9 Encounter for screening colonoscopy Z12.11 Chronic anal fissure ~09/19/18 K60.1 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 Lateral epicondylitis, right elbow M77.11 Impetigo L01.00 Conductive hearing loss of both ears H90.0 Shortness of breath R06.02 Infection of left mastoid bowl H70.92 Otitis externa in other diseases classified elsewhere, bilateral H62.43 Superficial mycosis B36.9 Infection of right mastoid bowl H70.91 Bicuspid aortic valve Q23.1 Hyperlipidemia E78.5 Left sided sciatica M54.32 Bursitis, trochanteric M70.60 Trochanteric bursitis of left hip M70.62 History of sciatica Z86.69 Impacted cerumen, bilateral H61.23 Chronic pain syndrome G89.4 Sacroiliac joint dysfunction of left side M53.3 Dysphasia R47.02 Medical History Medical History Alcoholism Anxiety and depression Barretts esophagus EGD done [facility] 06/06/2019 Cholesteatoma Colorectal polyp detected on colonoscopy (~09/19/18) COPD (chronic obstructive pulmonary disease) CVA (cerebral vascular accident) 2019-per pt. states no residual except for numbness in his feet DJD (degenerative joint disease) Dyspnea on exertion Esophagitis (~09/19/18) Gastritis (~09/19/18) GERD (gastroesophageal reflux disease) Hearing loss Hemorrhoids History of corrected cleft lip and palate HTN (hypertension) Impacted cerumen, left ear Insomnia Lateral epicondylitis Lumbago Lumbosacral neuritis Mastoiditis 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) Mixed hearing loss, bilateral (03/22/13) Onychomycosis of toenail Otitis externa Pain, joint, shoulder, right Papular urticaria Pityriasis rubra pilaris Sensorineural hearing loss, bilateral (03/08/13) TIA (transient ischemic attack) (~2016) pt. states he has had only one stroke-like event Tobacco use disorder Surgical History Surgical History Arthroscopy, Shoulder History of cataract surgery History of myringotomy History of repair of congenital cleft palate S/P colonoscopy (~09/19/18) Tympanoplasty I Tympanoplasty II - IV Tobacco Smoking/Tobacco Use Status: Current every day Tobacco Type: cigarettes Smoking packs per day: 0.5 Years smoked: 40 Smoking pack-years: 20.00 Counseling given: counseling >3 minutes Alcohol Alcohol Intake: current Alcohol intake frequency: 3 or more drinks per day Alcohol type: beer Details: 12 pack ppd Substance Use Substance use: Never Substance use type: does not use Details: 6 pack beer daily Vital Signs and Lab Results Vital Signs Most Recent Vital Signs in EMR: Most Recent Vital Signs Temp Pulse Resp BP Pulse Ox 36.0 C L 82 16 123/104 H 97 05/28/22 08:25 05/28/22 08:25 05/28/22 08:25 05/28/22 08:25 05/28/22 08:25 Lab Results Blood Type / Crossmatch: No Data to Display Complete Blood Count: White Blood Count 9.45 10^3/uL (4.4-10.8) 05/13/22 11:48 Red Blood Count 5.47 10^6/uL (4.36-5.78) 05/13/22 11:48 Hemoglobin 17.3 g/dL (13.5-17.5) 05/13/22 11:48 Hematocrit 50.5 % (40.0-50.0) H 05/13/22 11:48 Platelet Count 339 10^3/uL (130-400) 05/13/22 11:48 Complete Metabolic Panel: Sodium 137 mmol/L (136-145) 05/13/22 11:48 Potassium 4.3 mmol/L (3.5-5.1) 05/13/22 11:48 Chloride 102 mmol/L (98-107) 05/13/22 11:48 Carbon Dioxide 24.8 mmol/L (21.0-32.0) 05/13/22 11:48 BUN 10 mg/dL (7-18) 05/13/22 11:48 Creatinine 0.9 mg/dL (0.70-1.30) 05/13/22 11:48 Est GFR (CKD-EPI 2020) 101.49 (mL/min/1.73m2) 05/13/22 11:48 Calcium 9.6 mg/dL (8.5-10.1) 05/13/22 11:48 Albumin 4.0 g/dL (3.4-5.0) 05/13/22 11:48 Glucose 106 mg/dL (74-106) 05/13/22 11:48 Liver Function Panel: Alanine Aminotransferase (ALT/SGPT) 21 U/L (16-63) 05/13/22 11:48 Aspartate Amino Transf (AST/SGOT) 24 U/L (15-37) 05/13/22 11:48 Coagulation Panel: No Data to Display Cardiac Panel: No Data to Display Arterial Blood Gas: No Data to Display Venous Blood Gas: No Data to Display Pancreas Panel: No Data to Display Thyroid Panel: No Data to Display Infectious Disease: No Data to Display Blood Cultures: No Data to Display Toxicology Panel: No Data to Display Imaging and Studies Imaging and Studies Study information below may be from another EMR and interpreted by another provider. Please see original notes in EMR for more complete details. EKG Summary: DATE/TIME OF SERVICE: 05/21/21 0339 : 1970PERFORMING LOCATION: ER APPROVED REPORT Exam: Resting ECG Reason for Exam: check intervals Patient Location: E HR:85 bpm ECG Measurements Heart Rate 85 AXIS NM 151 P 61 QRSd 105 QRS 61 QT 404 T26 QTc 481 Conclusion Sinus rhythm...normal P axis, V-rate 60- 99 Probable left ventricular hypertrophy...multiple LVH criteria ST elev, probable normal early repol pattern...ST elevation, age<55 Stress Test Summary: 05/28/2019: MPI Conclusion Patient's ejection fraction was 41% during stress. There were no significant wall motion abnormalities. There was a very small partially reversible perfusion defect noted in the apex. This signifies a mildly positive SPECT stress test. Echocardiogram Summary: Date of Exam: 10/06/21Sex: M Admission Date: 10/06/21 : 1970 Age: 51 APPROVED REPORT EXAM: Comprehensive 2D, Doppler, and color-flow Echocardiogram Other Information Study Quality: Adequate Conclusion Normal left ventricular wall thickness and chamber size. Estimated ejection fraction is 60%. Wall motion is normal Normal right ventricular size and systolic function Both atria are normal in size The aortic valve is sclerotic and bicuspid. There is mild aortic stenosis with a peak gradient of 23, mean of 15, calculated aortic valve area of 1.47 cm?? Normal mitral valve with trace regurgitation Normal tricuspid valve with trace regurgitation. Estimated right ventricular systolic pressure is 25 mmHg The ascending aorta is normal in size measuring 3.22 cm Carotid Artery Summary:: Date of Exam: 06/03/16Sex: M : 1970Age: 46 Exam(s) [id number] US:Carotid SYMPTOMS/DIAGNOSIS: TIA, G45.9 CAROTID ULTRASOUND: There is mild intimal thickening along the common carotid arteries. There is no significant visible plaque. The velocity measurements obtained are within the normal range. There is no visible stenosis. The vertebral arteries show antegrade flow. IMPRESSION: No significant internal carotid artery stenosis or significant plaque. Pulmonary Function Summary: DATE OF SERVICE January 05, 2019 REQUESTING PROVIDER Cristel Ramos M.D. INTERPRETATION OF STUDY Spirometry shows mild obstructive airways disease with no significant bronchodilator response. LUNG VOLUMES - Lung volumes show no evidence of restriction. DIFFUSION CAPACITY- Normal. AIRWAY RESISTANCE - Normal. IMPRESSION Mild obstructive airways disease with no significant bronchodilator response. Clinical correlation recommended. When this study was compared to previous ones from 10/09/08, 07/30/11, 08/21/14, 06/02/16, 04/18/17, 08/24/18, the patient has an initial decline in FVC and then a subsequent increase with the highest number measured at the current PFT. FEV1 had a slight decline over time, but has stabilized since 2017. Clinical correlation recommended. Anesthesia Assessment and Plan Anesthesia History Personal History: No History of Anesthesia Complications Family History: No Family History of Anesthesia Complications Exercise Tolerance Exercise Tolerance: Metabolic Equivalents>4 Pertinent Negatives Pertinent Negatives: No Symptoms of GERD Cardiac & Pulmonary Exam Cardiac Exam: Normal S1/S2 Heart Sounds Pulmonary Exam: Clear Bilateral Breath Sounds Implantable Cardiac Device Does patient have a Pacemaker or an ICD?: No Airway Exam Known Difficult Airway: No Mallampati Class: 2 Mouth Opening: Normal (> 3cm) Thyromental Distance: Greater than 3 cm Neck Range of Motion: Full ROM Neck Circumference: Normal Teeth Condition: Edentulous ASA Classification ASA Score: ASA 3 Emergency Case?: No NPO Status NPO Status: NPO Clears >2 hours, Solids >8 hours Anesthesia Plan Resuscitation Status: Full Code Anesthesia Technique: General Anesthesia Airway Planned: Natural Airway Monitors Used: Standard Monitors
[2022-05-28 09:25] VITALS: BMI 20.7
--- NOTE | 2022-05-28 09:50 | STOM_PTH ---
PATIENT: Richie Cortez LOC: PER U#:[id number] AGE/SX: 52/M ROOM: RE05/28/[address]: Yony Sood : 1970 BED: DIS: 05/28/2022 SPEC #: [id number] RECD: 05/28/22 11:45 STATUS: JANET RE #: [id number] AMIRA: 05/28/22 09:[address]: Yony Sood DEPT: Surgical Specimen RECD BY: Svetlana Piper ENTERED: 05/28/22 11:48 SP TYPE: STOMACH OTHR DR: Cristel Ramos Tissues: 1 - STOMACH BIOPSY 2 - ESOPHAGUS BIOPSY 3 - BIOPSY BOWEL 4 - STOMACH BIOPSY 5 - ESOPHAGUS BIOPSY Procedures: GROSS AND MICRO LEVEL 4 Comments: [id number]
[2022-05-28 10:04] VITALS: BP 109/78; PULSE 86; RESP 18; TEMP 36.6; O2SAT 97
[2022-05-28 10:23] VITALS: BP 114/81; PULSE 71; RESP 16; TEMP 36.5; O2SAT 97
--- NOTE | 2022-05-28 10:41 | W.ANESPOSTOP ---
Postoperative Evaluation Date, Time and Location Date Performed: 05/28/22 Time Performed: 10:41 Patient Location: Day Surgery Unit Vital Signs Most Recent Imported Vital Signs: Most Recent Vital Signs Temp Pulse Resp BP Pulse Ox 36.6 C 86 18 109/78 97 05/28/22 10:04 05/28/22 10:04 05/28/22 10:04 05/28/22 10:04 05/28/22 10:04 Assessment Mental Status: Awake (Alert & Oriented to Patient Baseline) Airway and Respiratory Function: Patent airway with normal (patient baseline) respiratory exam Cardiovascular Function: Hemodynamically Stable Hydration Status: Adequately Hydrated Nausea & Vomiting: No Nausea or Vomiting Pain: Pt. Denies Any Pain Peripheral Nerve Block: Patient did not receive a nerve block
== END 2022-05-28 10:42 | disposition home or self-care (01) ==
PROVIDERS: PCP Family Medicine; Visit Provider Student in an Organized Health Care Education/Training Program
PROC: 0DJ68ZZ Inspection of Stomach, Via Natural or Artificial Opening Endoscopic (ICD-10-PCS; CPT 43235; principal; 2022-05-28 10:30)
DX: Z09 Encounter for follow-up examination after completed treatment for conditions other than malignant neoplasm (principal); Z87.19 Personal history of other diseases of the digestive system; K29.80 Duodenitis without bleeding; K44.9 Diaphragmatic hernia without obstruction or gangrene; K29.50 Unspecified chronic gastritis without bleeding
CPT/HCPCS: 43239; 88305; 94640; J7620

== ENCOUNTER 2022-10-19 08:18 | Outpatient (CLI) | payer MEDICAID, SELFPAY ==
--- NOTE | 2022-10-19 08:15 | RT.EKG_ITS ---
APPROVED REPORT Exam: Resting ECG Reason for Exam: valvular heart disease Patient Location: O HR:94 bpm ECG Measurements Heart Rate 94 AXIS NC 138 P 60 QRSd 97 QRS 52 QT 364 T -19 QTc 456 Conclusion Sinus rhythm...normal P axis, V-rate 50- 99 Ventricular premature complex...V complex w/ short R-R interval Probable left atrial enlargement...P >50mS, <-0.10mV V1 Left ventricular hypertrophy...multiple LVH criteria Baseline wander in lead(s) III,aVL
== END 2022-10-19 08:19 | disposition home or self-care (01) ==
LOC: DI.CARD 08:20
PROVIDERS: PCP Family Medicine; Visit Provider Internal Medicine Cardiovascular Disease
DX: Q23.1 Congenital insufficiency of aortic valve (principal)
CPT/HCPCS: 93010

== ENCOUNTER 2023-01-04 09:21 | Outpatient (CLI) | payer MEDICAID, SELFPAY ==
--- NOTE | 2023-01-04 08:30 | DI.RAD_ITS ---
Exam(s) XR SHOULDER RT COMPLETE 2+V EXAM: XR SHOULDER RT COMPLETE 2+V CLINICAL HISTORY: RIGHT SHOULDER PAIN. TECHNIQUE: 2D digital imaging was performed. COMPARISON: No exams were available for comparison FINDINGS: Two views. No evidence of fracture or dislocation or abnormal soft tissue calcifications. The subacromial space is not diminished. Coracoid process is intact. There are degenerative changes in the glenohumeral joint with moderate joint space narrowing and smal l osteophyte on the inferior articular surface of the humeral head. Some degenerative changes also e vident in the acromioclavicular joint. IMPRESSION: Moderate-advanced degenerative changes in the glenohumeral joint DATA REPOSITORY: RADIATION DOSE DELIVERED:
== END 2023-01-04 09:22 | disposition home or self-care (01) ==
LOC: DIORS 09:21
PROVIDERS: PCP Family Medicine; Referring Provider Family Medicine; Visit Provider Student in an Organized Health Care Education/Training Program
DX: M19.011 Primary osteoarthritis, right shoulder (principal)
CPT/HCPCS: 73030

== ENCOUNTER → 2023-02-23 01:08 | Outpatient (CLI) | payer MEDICAID, SELFPAY ==
--- NOTE | 2023-02-23 07:50 | DI.CTLCSR_ITS ---
Exam(s) CT CHEST LUNG CANCER SCREEN EXAM: CT CHEST LUNG CANCER SCREEN CLINICAL HISTORY: SCREENING FOR LUNG CA, TOBACCO USE DISORDER,F17.209 TECHNIQUE: Imaging Protocol: Axial computed tomography images with coronal and sagittal reformatted images were created and reviewed. Low dose screening protocol. COMPARISON: CT CT CHEST LUNG CANCER SCREEN from 12/07/2021 FINDINGS: Tracheobronchial tree: No bronchiectasis or mucus plugging.. Mediastinum and Katherin: No dominant adenopathy or fluid collection. Pulmonary parenchyma: No consolidation or dominant measurable mass. Minimal emphysematous changes. Lung Nodules: None. Pleura: No effusion. No pneumothorax. Heart: The heart is not dilated. No coronary artery calcifications are seen. Aorta: Thoracic aorta non-dilated. Calcification at the aortic root which may represent valvular ca lcifications. Not well evaluated due to motion. Upper abdomen: Unremarkable. Bones: Unremarkable for age. Soft Tissues: Unremarkable. IMPRESSION: No suspicious pulmonary nodules. Lung RADS Cat 1 - Negative: No nodules and definitely benign nodules Lung-RADS 1.0 CATEGORIES: Category 0 - Prior chest CT exam(s) being located for comparison. Category 1 - Annual screening in 12 months. No nodules or definitely benign nodules. Category 2 - Annual screening in 12 months. Benign appearance. Nodules with low likelihood of becomin g active cancer. Category 3 - 6-month follow-up. Probably benign. Short-term follow-up suggested. Nodules with low lik elihood of becoming active cancer. Category 4A - 3-month follow-up and CT/PET if >8 mm in size. Suspicious finding. Findings which requi re additional testing. Category 4B - Findings which require additional testing and tissue sampling. Category 4X - Category 3 or 4 nodules with additional features or imaging findings that increases the suspicion of malignancy. Modifier S- Potentially clinically significant findings (non lung cancer) RADIATION DOSE DELIVERED: Total DLP DATA REPOSITORY: All CT scans at this facility are submitted to the National Radiology Data Registry (NRDR) Dose Index Registry (DIR) with the [employer] (ACR). RADIATION OPTIMIZATION: All CT scans at this facility use at least one of these dose optimization te chniques: automated exposure control; mA and/or kV adjustment per patient size (includes targeted exa ms where dose is matched to clinical indication); or iterative reconstruction.
== END ==
PROVIDERS: PCP Family Medicine; Visit Provider Family Medicine
DX: Z12.2 Encounter for screening for malignant neoplasm of respiratory organs (principal); F17.210 Nicotine dependence, cigarettes, uncomplicated
CPT/HCPCS: 71271

== ENCOUNTER 2023-05-25 14:35 | Outpatient (REF) | payer MEDICAID, SELFPAY ==
--- NOTE | 2023-05-25 09:00 | SKI_PTH ---
PATIENT: Richie Cortez LOC: [facility] U#:[id number] AGE/SX: 53/M ROOM: RE05/25/[address]: Jaya Lerma MD : 1970 BED: DIS: 05/25/2023 SPEC #: [id number] RECD: 05/25/23 17:12 STATUS: JANET RELinnette #: [id number] AMIRA: 05/25/23 09:[address]: Jaya Lerma DEPT: Surgical Specimen RECD BY: Svetlana Piper ENTERED: 05/25/23 17:22 SP TYPE: MARLENE PETERS DR: Cristel Ramos Tissues: 1 - SKIN BIOPSY(SHAVE/PUNCH) Procedures: SKIN LEVEL 4 Comments: [id number]
== END 2023-05-25 14:36 | disposition home or self-care (01) ==
LOC: LBN 14:35
PROVIDERS: PCP Family Medicine; Visit Provider Otolaryngology
DX: L28.1 Prurigo nodularis (principal)
CPT/HCPCS: 88305

== ENCOUNTER → 2023-07-07 00:15 | Outpatient (CLI) | payer MEDICAID, SELFPAY ==
--- NOTE | 2023-07-07 14:25 | DI.RAD_ITS ---
Exam(s) RF JOINT INJ. FLUORO GUID RAD EXAM: RF JOINT INJ. FLUORO GUID RAD CLINICAL HISTORY: R SHOULDER PAIN,ARTHRITIS, TENDINOPATHY,FLUORO GUIDED INJECTION,M19.011. The Ana ent has had persistent right pain. Noninvasive measures have been tried. To serve as both diagnosti c and therapeutic, an injection under fluoroscopy was recommended. The risks of the procedure were d iscussed with their Orthopedic provider and the patient elected to proceed. TECHNIQUE: 2D and realtime digital imaging was performed. CONTRAST MATERIAL: Water soluble contrast was utilized. COMPARISON: No exams were available for comparison FINDINGS: The Patient was greeted in the fluoroscopy room. The correct side was identified and the consent was reviewed with the patient and was signed. The patient was properly positioned on the fluoroscopy ta ble. The right shoulderwas then prepped with Chloraprep and draped. The right shoulder injection st arting point was identified by the bony landmarks and fluoroscopy. The skin and soft tissue in the t ract of the injection was anesthetized with 1% Lidocaine. A spinal needle was then inserted into the right shoulder joint at the level of the glenohumeral joint under fluoroscopic guidance. A small am ount of Omnipaque solution was injected to confirm intraarticular placement. Once confirmed, the rig ht shoulder was injected with 5cc of a solution containing 0.5% Bupivaine and 80 mg of Depo-Medrol. A bandaid was placed on the injection site. The patient tolerated the procedure well and left the de partment in good condition. IMPRESSION: Successful right shoulder injection. RADIATION DOSE DELIVERED: Ka,r=1.22 mGy
[2023-07-07] MEDS: methylPREDNISolone ACETATE 80 MG/ML VIAL IM (15:25)
[2023-07-07] MEDS: Bupivacaine 0.5% Pres-Free 10 ML VIAL 8 ML IJ (16:13)
[2023-07-07] MEDS: Omnipaque 300 MG/ML 10 ML BTL 5 ML IJ (16:14)
[2023-07-07] MEDS: Normal Saline - Diluent 50 ML VIAL IJ (16:15)
== END ==
PROVIDERS: PCP Family Medicine; Visit Provider Student in an Organized Health Care Education/Training Program
DX: M25.511 Pain in right shoulder (principal)
CPT/HCPCS: 20610; 77002; J0665; J1040

== ENCOUNTER 2023-08-15 09:16 | Emergency (ER) | payer MEDICAID, SELFPAY ==
[2023-08-15 09:19] VITALS: BP 123/101; PULSE 104; RESP 18; TEMP 37.2; O2SAT 99
--- NOTE | 2023-08-15 09:30 | DI.RAD_ITS ---
Exam(s) XR FOOT LT COMPLETE XR ANKLE LT COMPLETE EXAM: XR ANKLE LT COMPLETE and XR foot LT complete CLINICAL HISTORY: lateral pain after rotational injury TECHNIQUE: 2D digital imaging was performed of the left foot and ankle. Six images were obtained. AP, lateral and oblique views were obtained. COMPARISON: There are no priors for comparison. FINDINGS: BONES: There is an acute fracture seen laterally on the AP view of the ankle suggesting a fracture of the distal cuboid. There also osseous fragments in the soft tissues laterally on the AP view of the ankle and the AP view of the foot suggesting a distal calcaneal fracture. There is soft tissue swel ling inferior to the fibula. No bony destructive lesion is seen. JOINTS:The ankle mortise is normally aligned. The joint in the foot appear well maintained. SOFT TISSUE: Normal. IMPRESSION: 1. Acute fracture involving the lateral aspect of the cuboid. 2. Comminuted fracture involving the distal lateral aspect of the calcaneus. 3. Soft tissue swelling laterally inferior to the fibula. DATA REPOSITORY: RADIATION DOSE DELIVERED:
--- NOTE | 2023-08-15 09:38 | ED.GENADUL_ITS ---
Discharge Plan Disposition Patient Disposition: Home Condition: Good Discharge Details Clinical Impression: Closed fracture cuboid, Foot fracture Primary Care Provider: Cristel Ramos ED Provider: Olivia Campbell Home Meds and New Rx's Prescriptions: Continued ProAir RespiClick 90 MCG aerosol powdr breath activated 90 mcg Inhalation Q6H PRN Patient Comments: pt ran out budesonide-formoterol [Symbicort] 80-4.5 mcg/actuation HFA aerosol inhaler 2 puff IH BID atorvastatin 20 mg tablet 20 mg PO DAILY Qty: 90 6RF folic acid 1 mg tablet 1 mg PO DAILY triamcinolone acetonide 0.1 % cream 1 applic topical BID pregabalin 100 mg capsule 100 mg PO TID omeprazole 40 mg capsule,delayed release(DR/EC) See Rx Instructions .ROUTE .COMPLEX Qty: 90 3RF Dose Instruction: TAKE ONE CAPSULE BY MOUTH EVERY DAY Rx Instructions: TAKE ONE CAPSULE BY MOUTH EVERY DAY acetaminophen [Tylenol Extra Strength] 500 mg Tablet 1,000 mg PO Q6H PRN (Reason: Pain) cetirizine 10 mg tablet 10 mg PO DAILY Patient Comments: TAKE ONE TABLET BY MOUTH EVERY DAY Discharge Instructions Instructions: Foot Fracture in Adults (ED) Additional Instructions: Your imaging is concerning for a fracture the bone in your foot. Please keep your splint on until reevaluated by orthopedics and continue be nonweightbearing with crutches. Please encourage rest, ice, elevation. Tylenol and ibuprofen as needed for discomfort. Please take as directed on the packaging. Please call number listed below to schedule follow-up appointment. Orthopedics would like to see you in approximately 2 weeks and we will discuss transitioning you into a walking boot at that time. If develop any new or worsening symptoms please seek care urgently once again. Referrals: Frankie Prieto MD [ [facility] STAFF PHYSICIAN] - [facility] General Date/Time Provider Initiated Documentation: 08/15/23 09:21 . Limitations to Documentation: no limitations . Information obtained by: patient and RN notes reviewed . History of Present Illness 53 year old M presents to the emergency department with the chief complaint of left foot and ankle pain, described as moderate, Quality is described as aching, and is localized to the left and lower extremity. Patient reports no radiation. Patient started experiencing this day(s) and it has been constant. Immobilization improves symptom(s), Movement worsens symptoms . Patient notes no other symptoms.. Patient did receive the following treatments prior to arrival, NSAID Related Data Home Medications Medication Instructions Recorded Confirmed albuterol sulfate 90 mcg/actuation 90 mcg inhalation Q6H PRN 09/22/17 08/15/23 breath activated powder inhaler (ProAir RespiClick) budesonide-formoterol HFA 80 2 puff inhalation BID 05/14/19 08/15/23 mcg-4.5 mcg/actuation aerosol inhaler (Symbicort) acetaminophen 500 mg tablet 1,000 mg PO Q6H PRN Pain 12/18/19 08/15/23 (Tylenol Extra Strength) atorvastatin 20 mg tablet 20 mg PO DAILY #90 tabs 08/14/20 08/15/23 folic acid 1 mg tablet 1 mg PO DAILY 05/24/22 08/15/23 triamcinolone acetonide 0.1 % 1 applic topical BID 05/24/22 08/15/23 topical cream pregabalin 100 mg capsule 100 mg PO TID 11/09/22 08/15/23 omeprazole 40 mg capsule,delayed See Rx Instructions .Route 06/26/23 08/15/23 release .COMPLEX #90 caps cetirizine 10 mg tablet 10 mg PO DAILY 08/15/23 08/15/23 Previous Rx's Medication Instructions Recorded atorvastatin 20 mg tablet 20 mg PO DAILY #90 tabs 08/14/20 omeprazole 40 mg capsule,delayed See Rx Instructions .Route 06/26/23 release .COMPLEX #90 caps Allergies Allergy/AdvReac Type Severity Reaction Status Date / Time ibuprofen Allergy Mild Hives Verified 08/15/23 09:21 lisinopril AdvReac Unknown cough Verified 08/15/23 09:21 General Stated Complaint: Orthopedic DIANNA: 4 Review of Systems Constitutional Constitutional: Reports as per HPI, Denies fever(s) and Denies weakness Cardiovascular Cardiovascular: Reports as per HPI Musculoskeletal Musculoskeletal: Reports as per HPI and Denies tingling Integumentary/Breasts Skin/Breast: Reports as per HPI, Denies rash and Denies wounds Neurologic Neurologic: Reports as per HPI, Denies tingling, Denies paresthesias and Denies weakness Exam Const General: cooperative, healthy appearing, comfortable, no acute distress, well developed and well groomed Nutritional Appearance: average body habitus and well nourished Orientation: alert and awake Resp Effort & Inspection: normal respiratory effort, able to speak in complete sentences and no respiratory distress Cardio Rate: regular rate Rhythm: regular rhythm Skin General skin exam: ecchymosis Trauma: no lacerations or abrasions Neuro General: patient alert and patient awake Cognition: normal cognition Speech: speech normal Gait: antalgic (in wheelchair currently) Motor: muscle tone normal throughout Sensory Exam: no sensory deficits noted Extrem Ankle/foot/toe images: 2 1. Area of maximal tenderness over the midfoot. He does have some tenderness over the fifth metatarsal. Swelling over the lateral malleolus. Ecchymosis distal, along the heel. No pain to palpation about the heel, Achilles is palpated intact and nontender. No pain proximal to this area. 2+ distal pulses. Sensation is intact. Pain over the lateral malleolus but more so at the ATFL. Course Vital Signs Vital signs: Vital Signs Temperature 37.2 C 08/15/23 09:19 Pulse 104 H 08/15/23 09:19 Respiratory Rate 18 08/15/23 09:19 Blood Pressure 123/101 H 08/15/23 09:19 Pulse Oximetry 99 08/15/23 09:19 Temperature 37.2 C 08/15/23 09:19 Temperature Source Skin 08/15/23 09:19 Pulse 104 H 08/15/23 09:19 Respiratory Rate 18 08/15/23 09:19 Respiratory Effort Normal, Non-Labored 08/15/23 09:27 Blood Pressure 123/101 H 08/15/23 09:19 Blood Pressure Position Sitting 08/15/23 09:19 Pulse Oximetry 99 08/15/23 09:19 Oxygen Delivery Method Room Air 08/15/23 09:19 Oxygen Flow Rate 0 08/15/23 09:19 Pain Level 8 08/15/23 09:19 Medical Decision Making Patient is a pleasant 53-year-old male with past medical history significant for Vázquez's, onychomycosis of toenail, gastritis, CVA, COPD, hypertension, TIA, tobacco use, alcoholism, presenting with chief complaint of left foot and ankle pain. He reports that 2 days ago he was stepping down, missed stepped and suffered a rotational injury. He denies other injury at the time of the incident although he does report that he fell. Denies striking his head. No loss of consciousness. Denies any pain in his neck or back. Denies any altered sensation. No previous injury or surgery to this affected area. Has been largely nonweightbearing since then secondary to pain. On exam, patient appears nontoxic. He is uncomfortable on the left foot, sitting in wheelchair. He has swelling noted at the lateral aspect of the left ankle with ecchymosis extending to the inferior aspect. He has 2+ distal pulses. Sensation is intact. He has no pain distally in the foot but is pain full over the midfoot and the fifth metatarsal although this is more mild. No pain in the calcaneus. Achilles is palpated to be intact, nontender with a negative Chester test. No pain over the proximal fibula. No pain to palpation over the calf or the knee. Pain is maximal over the midfoot, ATFL with some mild discomfort in the lateral malleolus. Will obtain x-rays to evaluate for potential bony abnormality, including Lisfranc and fifth metatarsal injury. Will get a weighted view. Patient took Excedrin this morning to help with discomfort. BONES: There is an acute fracture seen laterally on the AP view of the ankle suggesting a fracture of the distal cuboid. There also osseous fragments in the soft tissues laterally on the AP view of the ankle and the AP view of the foot suggesting a distal calcaneal fracture. There is soft tissue swelling inferior to the fibula. No bony destructive lesion is seen. JOINTS:The ankle mortise is normally aligned. The joint in the foot appear well maintained. SOFT TISSUE: Normal. IMPRESSION: 1. Acute fracture involving the lateral aspect of the cuboid. 2. Comminuted fracture involving the distal lateral aspect of the calcaneus. 3. Soft tissue swelling laterally inferior to the fibula. Will consult with Dr. Prieto. Recommended CT scan. Recommended posterior slab splint. Advised they will f/u with patient in the clinic. Posterior slab splint applied by myself with foot in neutral position. Patient given crutches and advised to be nonweightbearing. Encouraged rest, ice, elevation. Tylenol and ibuprofen as needed for discomfort. He will call orthopedics to schedule follow-up appointment. Return precautions were discussed. All of his questions and concerns were addressed and he is in agreement with this plan. Quality:SDOH Health Related Social Needs: 2 No Data to Display [facility] All Active Problems (Updated 08/15/23 @ 11:18 by LUISA Ramos) Foot fracture (Acute) Closed fracture cuboid (Acute) Lesion of external ear (Acute) Tendinopathy of right biceps tendon (Acute) Arthritis of right acromioclavicular joint (Acute) Arthritis of right glenohumeral joint (Acute) Wears hearing aid in both ears (Acute) Alcoholism in remission (Acute) Psychological and behavioral factors associated with disorders or diseases classified elsewhere (Acute) Chronic pain (Chronic) Lesion of ear (Acute) Allergic rhinitis (Acute) Optic atrophy, left eye (Chronic) Arthrosis of right shoulder region (Acute 02/04/17) Chronic mastoiditis (Acute 03/22/13) Chronic mastoiditis of both sides (Acute 03/20/15) Impacted cerumen (Acute 06/14/13) Otitis externa (Acute 03/22/13) Right rotator cuff tendinitis (Acute 02/04/17) Gastroesophageal reflux disease (Chronic) Encounter for screening colonoscopy (Acute) Chronic anal fissure (Acute ~09/19/18) 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 (Acute) Lateral epicondylitis, right elbow (Acute) Impetigo (Acute) Conductive hearing loss of both ears (Acute) Shortness of breath (Acute) Infection of left mastoid bowl (Acute) Otitis externa in other diseases classified elsewhere, bilateral (Acute) Superficial mycosis (Acute) Infection of right mastoid bowl (Acute) Bicuspid aortic valve (Acute) Hyperlipidemia (Acute) Left sided sciatica (Acute) Bursitis, trochanteric (Acute) Trochanteric bursitis of left hip (Acute) History of sciatica (Acute) Impacted cerumen, bilateral (Acute) Chronic pain syndrome (Chronic) Sacroiliac joint dysfunction of left side (Acute) Dysphasia (Acute) Medical History Impacted cerumen, left ear Pain, joint, shoulder, right Lateral epicondylitis Barretts esophagus EGD done [facility] 06/06/2019 Pityriasis rubra pilaris Onychomycosis of toenail Lumbago Colorectal polyp detected on colonoscopy (~09/19/18) Esophagitis (~09/19/18) Gastritis (~09/19/18) History of corrected cleft lip and palate CVA (cerebral vascular accident) 2019-per pt. 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 states he has had only one stroke-like event GERD (gastroesophageal reflux disease) Anxiety and depression Papular urticaria Tobacco use disorder Otitis externa DJD (degenerative joint disease) Mastoiditis Alcoholism Hearing loss Lumbosacral neuritis Insomnia Surgical History History of myringotomy History of repair of congenital cleft palate S/P colonoscopy (~09/19/18) History of cataract surgery Tympanoplasty II - IV Tympanoplasty I Arthroscopy, Shoulder Family History Other Asthma Cancer Diabetes Heart disease Social History Smoking/Tobacco Use Status: Current every day Tobacco Type: cigarettes Smoking packs per day: 0.5 Smoking cigarettes per day: 10.0 Years smoked: 40 Smoking pack-years: 20.00 Counseling given: counseling >3 minutes Smoking risk assessment performed?: Yes Alcohol Intake: current Alcohol Intake frequency: 3 or more drinks per day Alcohol type: beer Details: 12 pack ppd Drug use: Never Substance use type: does not use Details: 6 pack beer daily What type of physical activity do you participate in: none and additional Details: just walk/work Do you feel safe at home: Yes Do you feel safe in your relationship?: Yes
--- NOTE | 2023-08-15 11:25 | DI.CT_ITS ---
Exam(s) CT LOWER EXTREMITY LT WO EXAM: CT LOWER EXTREMITY LT WO CLINICAL HISTORY: further eval of fx. TECHNIQUE: Imaging Protocol: Axial computed tomography images with coronal and sagittal reformatted images were created and reviewed. COMPARISON: CR XR FOOT LT COMPLETE from 08/15/2023 CR XR ANKLE LT COMPLETE from 08/15/2023 FINDINGS: Bones: There is a 3 mm mildly displaced fracture involving the anterior lateral aspect of the talus (series 7, image 164). There is a comminuted minimally displaced fracture involving the anterolatera l aspect of the anterior process of the calcaneus. (Series 7, images 175-194. There is a nondisplac ed fracture of the lateral aspect of the anterior superior cuboid (series 7 images 198-210). Bony al ignment is satisfactory. No cellulitic or osteomyelitic changes are identified. There is no evidenc e of joint space narrowing or cystic degeneration seen. No lytic or sclerotic lesions are identified. Soft Tissues: There is edema seen in the soft tissues of the lateral foot and ankle. IMPRESSION: 1. Acute fractures involving the talus, calcaneus and cuboid bones as described above. There is asso ciated soft tissue edema in the lateral foot and ankle. RADIATION DOSE DELIVERED: Total DLP Total DLP DATA REPOSITORY: All CT scans at this facility are submitted to the National Radiology Data Registry (NRDR) Dose Index Registry (DIR) with the [employer] (ACR). RADIATION OPTIMIZATION: All CT scans at this facility use at least one of these dose optimization te chniques: automated exposure control; mA and/or kV adjustment per patient size (includes targeted exa ms where dose is matched to clinical indication); or iterative reconstruction.
[2023-08-15 11:50] VITALS: PULSE 65; RESP 16; TEMP 36.5; O2SAT 95
== END 2023-08-15 11:51 | disposition home or self-care (01) ==
PROVIDERS: Emergency Provider Physician Assistant; PCP Family Medicine
DX: S92.142A Displaced dome fracture of left talus, initial encounter for closed fracture (principal); S92.022A Displaced fracture of anterior process of left calcaneus, initial encounter for closed fracture; S92.215A Nondisplaced fracture of cuboid bone of left foot, initial encounter for closed fracture; I10 Essential (primary) hypertension; F17.210 Nicotine dependence, cigarettes, uncomplicated; Z86.73 Personal history of transient ischemic attack (TIA), and cerebral infarction without residual deficits; X50.1XXA Overexertion from prolonged static or awkward postures, initial encounter; Y93.01 Activity, walking, marching and hiking
CPT/HCPCS: 99284; 73610; 73630; 73700

== ENCOUNTER 2023-08-30 14:42 | Outpatient (CLI) | payer MEDICAID, SELFPAY ==
--- NOTE | 2023-08-30 14:27 | DI.RAD_ITS ---
Exam(s) XR FOOT LT COMPLETE EXAM: XR FOOT LT COMPLETE CLINICAL HISTORY: F/U FRACTURE. TECHNIQUE: 2D digital imaging was performed. Three views. COMPARISON: CR XR FOOT LT COMPLETE from 08/15/[address] LOWER EXTREMITY LT WO from 08/15/2023 FINDINGS: BONES: The cuboid fracture is faintly visualized shows no change in alignment. The anterior calcanea l fracture and talar fractures are not visible. No bony destructive lesion is seen. JOINTS: Joint spaces are maintained. SOFT TISSUE: Mild swelling. IMPRESSION: Stable alignment of cuboid fracture. The calcaneal and talar fractures not visible. DATA REPOSITORY: RADIATION DOSE DELIVERED:
== END 2023-08-30 14:43 | disposition home or self-care (01) ==
LOC: DIORS 14:42
PROVIDERS: PCP Family Medicine; Visit Provider Student in an Organized Health Care Education/Training Program
DX: S92.212A Displaced fracture of cuboid bone of left foot, initial encounter for closed fracture (principal); X58.XXXA Exposure to other specified factors, initial encounter
CPT/HCPCS: 73630

== ENCOUNTER → 2023-09-09 00:25 | Outpatient (CLI) | payer MEDICAID, SELFPAY ==
--- NOTE | 2023-09-09 06:45 | DI.US_ITS ---
APPROVED REPORT EXAM: Comprehensive 2D, Doppler, and color-flow Echocardiogram Patient Location: Out-Patient Site Acquisition Specialist: Shae Temple RDCS (AE) Indications: Check aortic stenosis, bicuspid aortic valve, Congenital insufficiency of aortic valve Other Information Study Quality: Adequate. Technically limited study due to body habitus smoker. Conclusion Normal left ventricular wall thickness and chamber size. Ejection fraction is 55%. Wall motion is n ormal Normal right ventricular size and function Both atria are normal in size Aortic valve is calcified and bicuspid without stenosis or regurgitation Normal mitral valve with trace regurgitation Normal tricuspid valve with mild regurgitation. Estimated right ventricular systolic pressure is 21 mmHg Wall motion Left Ventricle The left ventricle is normal size. The left ventricular systolic function is normal. The left ventric ular ejection fraction is within the normal range. There is normal left ventricular wall thickness. T here is normal LV segmental wall motion. There is no ventricular septal defect visualized. LVEF is 55 %. Right Ventricle The right ventricle is normal size. The right ventricular systolic function is normal. Atria The left atrium size is normal. The right atrium size is normal. The interatrial septum is intact wit h no evidence for an atrial septal defect. Aortic Valve Aortic valve is calcified. Aortic valve is bicuspid. No hemodynamically significant valvular aortic s tenosis. No aortic regurgitation is present. Mitral Valve The mitral valve is normal in structure. No evidence of mitral valve stenosis. Trace mitral regurgita tion. Tricuspid Valve The tricuspid valve is normal in structure. There is no tricuspid valve stenosis. Mild tricuspid regu rgitation. The RVSP is 21.1 mmHg. Pulmonic Valve The pulmonary valve is normal in structure. There is no pulmonic valvular stenosis. There is no pulmo yelitza valvular regurgitation. Great Vessels The aortic root is normal in size. The ascending aorta is normal in size. Aortic arch is not well vis ualized. IVC is normal in size and collapses >50% with inspiration. Pericardium There is no pericardial effusion. 2D Dimensions IVSD d PLAX 1.10 cm M: 0.6-1.2 Ao Root d 3.41 cm M: 3.1 - 3.7 LVPW d PLAX 1.10 cm M: 0.6 - 1.2 Ao Asc Diam d 3.26 cm M: 2.6 - 3.4 LVID d PLAX 4.85 cm M: 4.2 - 5.8 LVDs 3.53 cm M: 2.5 - 4.0 LV EF Teichholz 53.1 % FS 27.35 % LV EDV (Teich) 110.2 mL LV ESV (Teich) 51.7 mL M-Mode TAPSE 1.96 cm (M/F) >1.7 Auto EF LV EDV A4C 98.3 mL LV EDV A2C 129.0 mL LV EDV BP 111.0 mL LV ESV A4C 45.0 mL LV ESV A2C 58.9 mL LV ESV BP 51.0 mL LVEF(%) A4C 54.2 % LVEF(%) A2C 54.3 % LVEF(%) BP 54.1 % LV SV A4C 53.3 ml LV SV A2C 70.0 ml LV SV BP 60.0 ml LV CO A4C 3.6 L/min LV CO A2C 4.5 L/min LV CO BP 4.0 L/min HR A4C 66.92 BPM HR A2C 64.50 BPM LV EDV Index (BP) LA Volume LA Length A4C 4.8 cm LA Length A2C 4.7 cm LA Area A4C s 12.78 cm2 LA Area A2C s 13.77 cm2 LA Vol A4C A-L 29.15 mL LA Vol A2C A-L 34.24 mL LA Vol Biplane A-L 31.8 mL LA Vol/BSA A4C A-L LA Vol/BSA A2C A-L LA Vol/BSA BP A-L 18.2 mL/m2 LA Vol A4C MOD 26.1 mL LA Vol A2C MOD 29.0 mL LA Vol BP MOD 27.6 mL RA Volume RA Area A4C 14.3 cm2 RA ESV A4C (A-L) 36.2mL RA Vol/BSA A4C A-L RA Length A4C 4.8 cm RA ESV A4C (MOD) 34.2mL LV Diastology MV E' medial 0.082 (>0.07 m/s) MV E Vmax 0.65 (0.4-1.3 m/s) MV E/E' MED 7.96 (<14) MV A Vmax 0.60 (0.4-1.3 m/s) MV E' lateral 0.082 (>0.1 m/s) E/A Ratio 1.1 MV E/E' LAT 7.96 (<14) MV E' Average 0.082 m/s MV E/E'(average) 7.96 Aortic Valve AoV Vmax 2.19 m/s LVOT Vmax 0.73 m/s AoV Peak Grad 19.2 mmHg LVOT Peak Grad 2.1 mmHg AoV Area (Vmax) 1.29 cm2 LVOT VTI 0.152 m AoV VTI 0.466 m LVOT Mean Grad 1.2 mmHg AoV Mean Kevan. 1.94 m/s LVOT SV 58.80 mL AoV Mean Grad 15.4 mmHg LVOT Diam s 2.20 cm AoV Area (VTI) 1.26 cm2 Velocity Ratio 0.33 Mitral Valve MV DT 110 (160-240 msec) MV Vmax TIPS 0.71 m/s MV Mean Grad 0.8 (<2mmHg) MV VTI 0.242 m Pulmonary Valve PV Vmax 0.89 (0.5-1.5 m/s) RVOT Vmax 0.60 m/s PV Peak Grad 3.1 mmHg RVOT Peak Gr. 1.5 mmHg PV Mean Kevan 0.56 m/s RVOT VTI 0.138 m PV Mean Grad 1.4 mmHg RVOT Mean Gr. 0.7 mmHg Tricuspid Valve RA Pressure 3.00 mmHg TR Vmax 2.13 m/s TV S' 0.12 m/s TR Peak Grad 18.0 mmHg RVSP (TR) 21.1 mmHg
== END ==
PROVIDERS: PCP Family Medicine; Visit Provider Internal Medicine Cardiovascular Disease
DX: Q23.1 Congenital insufficiency of aortic valve (principal)
CPT/HCPCS: 93306

== ENCOUNTER 2023-09-27 10:47 | Outpatient (CLI) | payer MEDICAID, SELFPAY ==
--- NOTE | 2023-09-27 09:30 | DI.RAD_ITS ---
Exam(s) XR FOOT LT COMPLETE EXAM: XR FOOT LT COMPLETE CLINICAL HISTORY: F/U FRACTURE. TECHNIQUE: 2D digital imaging was performed. COMPARISON: CT CT LOWER EXTREMITY LT WO from 08/15/2023 CR XR FOOT LT COMPLETE from 08/30/2023 FINDINGS: 3 views Previously described fracture lines are less evident on the present study. IMPRESSION: No fracture lines identified at this time. DATA REPOSITORY: RADIATION DOSE DELIVERED:
== END 2023-09-27 10:48 | disposition home or self-care (01) ==
LOC: DIORS 10:47
PROVIDERS: PCP Family Medicine; Visit Provider Student in an Organized Health Care Education/Training Program
DX: S92.212D Displaced fracture of cuboid bone of left foot, subsequent encounter for fracture with routine healing; X58.XXXD Exposure to other specified factors, subsequent encounter
CPT/HCPCS: 73630

== ENCOUNTER 2023-11-14 18:17 | Emergency (ER) | payer MEDICAID, SELFPAY ==
[2023-11-14] VITALS (22 sets, daily range): BP systolic 106–150; BP diastolic 64–87; PULSE 75–121; TEMP 37; O2SAT 90–100
--- NOTE | 2023-11-14 18:45 | DI.CT_ITS ---
Exam(s) CT HEAD WO EXAM: CT HEAD WO CLINICAL HISTORY: frontal headache, photophobia. TECHNIQUE: Imaging Protocol: Axial computed tomography images with coronal and sagittal reformatted images were created and reviewed COMPARISON: CT CT HEAD CERVICAL SPINE WO from 05/21/2021 FINDINGS: There are no skull fractures. Small focal mucosal thickening noted in the medial wall the left maxill angelito sinus probably post inflammatory retention cyst versus polyp. There is no associated fluid level . Some mucosal thickening and mild fluid is noted in the posterior aspect of the sphenoid sinuses. Frontal sinuses are clear. Also noted is evidence of resection of mastoid air cells bilaterally. There is no evidence of intracranial hemorrhage, mass effect, or shift of midline structures. There are no extra-axial fluid collections. The ventricles are not enlarged or shifted and there is no blo od within the ventricular system nor within the basal cisterns. There are multiple small gas bubbles evident within the bilateral cavernous sinuses related to the co urse of the internal carotid arteries. Also along the petrous clinoid ligaments. IMPRESSION: There are air bubbles noted in the skull base-cavernous sinuses as described above. First read by [facility] Final report called by myself to ER physician 11/15/2023 9:15 a.m. RADIATION DOSE DELIVERED: 769.8mGy.cm Total DLP DATA REPOSITORY: All CT scans at this facility are submitted to the National Radiology Data Registry (NRDR) Dose Index Registry (DIR) with the [employer] (ACR). RADIATION OPTIMIZATION: All CT scans at this facility use at least one of these dose optimization te chniques: automated exposure control; mA and/or kV adjustment per patient size (includes targeted exa ms where dose is matched to clinical indication); or iterative reconstruction.
--- NOTE | 2023-11-14 19:03 | ED.GENADUL_ITS ---
Discharge Plan Disposition Patient Disposition: Home Condition: Improving Discharge Details Chief Complaint: Headache Clinical Impression: Headache Primary Care Provider: Cristel Ramos ED Provider: Sebastian Larson Home Meds and New Rx's Prescriptions: No Action ProAir RespiClick 90 MCG aerosol powdr breath activated 90 mcg Inhalation Q6H PRN Patient Comments: pt ran out budesonide-formoterol [Symbicort] 80-4.5 mcg/actuation HFA aerosol inhaler 2 puff IH BID atorvastatin 20 mg tablet 20 mg PO DAILY Qty: 90 6RF folic acid 1 mg tablet 1 mg PO DAILY triamcinolone acetonide 0.1 % cream 1 applic topical BID pregabalin 100 mg capsule 100 mg PO TID omeprazole 40 mg capsule,delayed release(DR/EC) See Rx Instructions .ROUTE .COMPLEX Qty: 90 3RF Dose Instruction: TAKE ONE CAPSULE BY MOUTH EVERY DAY Rx Instructions: TAKE ONE CAPSULE BY MOUTH EVERY DAY acetaminophen [Tylenol Extra Strength] 500 mg Tablet 1,000 mg PO Q6H PRN (Reason: Pain) cetirizine 10 mg tablet 10 mg PO DAILY Patient Comments: TAKE ONE TABLET BY MOUTH EVERY DAY Discharge Instructions Instructions: Headache, Adult ED Additional Instructions: Please follow-up with your primary care physician. HPI General Date/Time Provider Initiated Documentation: 11/14/23 18:44 . HPI Narrative: 53-year-old male presents with 4 days of frontal headache gradual onset associate with some photophobia, history of prior TIAs Related Data Home Medications Medication Instructions Recorded Confirmed albuterol sulfate 90 mcg/actuation 90 mcg inhalation Q6H PRN 09/22/17 11/14/23 breath activated powder inhaler (ProAir RespiClick) budesonide-formoterol HFA 80 2 puff inhalation BID 05/14/19 11/14/23 mcg-4.5 mcg/actuation aerosol inhaler (Symbicort) acetaminophen 500 mg tablet 1,000 mg PO Q6H PRN Pain 12/18/19 11/14/23 (Tylenol Extra Strength) atorvastatin 20 mg tablet 20 mg PO DAILY #90 tabs 08/14/20 11/14/23 folic acid 1 mg tablet 1 mg PO DAILY 05/24/22 11/14/23 triamcinolone acetonide 0.1 % 1 applic topical BID 05/24/22 11/14/23 topical cream pregabalin 100 mg capsule 100 mg PO TID 11/09/22 11/14/23 omeprazole 40 mg capsule,delayed See Rx Instructions .Route 06/26/23 11/14/23 release .COMPLEX #90 caps cetirizine 10 mg tablet 10 mg PO DAILY 08/15/23 11/14/23 Previous Rx's Medication Instructions Recorded atorvastatin 20 mg tablet 20 mg PO DAILY #90 tabs 08/14/20 omeprazole 40 mg capsule,delayed See Rx Instructions .Route 06/26/23 release .COMPLEX #90 caps Allergies Allergy/AdvReac Type Severity Reaction Status Date / Time ibuprofen Allergy Mild Hives Verified 11/14/23 18:23 lisinopril AdvReac Unknown cough Verified 11/14/23 18:23 General Stated Complaint: Headache DIANNA: 3 Review of Systems Narrative: Review of Systems Constitutional: negative Eyes: negative ENT: negative Cardiovascular: negative Respiratory: negative Gastrointestinal: negative : negative Musculoskeletal: negative Skin: negative Neurologic: Headache Psych: negative Exam Narrative Exam Narrative: Physical Examination General: alert, awake, cooperative, resting comfortably, no acute distress HEENT: normocephalic, atraumatic; PERRL, EOM intact, conjunctiva normal; no nasal discharge; moist mucous membranes, oral and pharyngeal mucosa normal, tolerating secretions Neck: supple, trachea midline; full ROM Chest: normal to inspection Respiratory: normal respiratory effort, speaking in full sentences, clear to auscultation, no wheezing, rales or rhonchi Cardiac: regular rate, regular rhythm, S1S2 intact, no murmurs rubs or gallops GI: abdomen soft, non-tender, non-distended; no palpable mass or hepatosplenome janes Skin: no lesions, rashes or trauma appreciated Neuro: AAOx3, normal speech, moving all extremities; cranial nerves II through XII intact out of 5 strength upper lower extremities bilaterally no truncal ataxia Extremities: Moving all extremities no trauma no edema Psych: Appropriate mood and affect Course Vital Signs Vital signs: Vital Signs Temperature 37 C 11/14/23 18:20 Pulse 121 H 11/14/23 18:20 Blood Pressure 150/87 H 11/14/23 18:20 Pulse Oximetry 96 11/14/23 18:20 Temperature 37 C 11/14/23 18:20 Temperature Source Temporal Artery Scan 11/14/23 18:20 Pulse 121 H 11/14/23 18:20 Respiratory Effort Normal, Non-Labored 11/14/23 18:24 Blood Pressure 150/87 H 11/14/23 18:20 Blood Pressure Position Sitting 11/14/23 18:20 Pulse Oximetry 96 11/14/23 18:20 Oxygen Delivery Method Room Air 11/14/23 18:20 Oxygen Flow Rate 0 11/14/23 18:20 Medical Decision Making 53-year-old male history of TIA, presents with frontal headache over the last 4 days gradual onset associate with photophobia, nonmeningeal afebrile nontoxic moderately hypertense on arrival noted to be tachycardic no tremors no fasciculations to suggest withdrawal consider component of dehydration versus electrolyte derangement must consider ICH lower suspicion for TIA or CVA low suspicion for seizure, must consider migraine headache versus tension headache lower suspicion for meningitis given history and physical will obtain labs CT head fluids analgesia antiemetics close reassessment symptomatology Treatment: 11 patient resting comfortably no acute distress currently sleeping, heart rate 88 bpm blood pressure 110/80, neurologically intact CT and labs unremarkable. Quality:SDOH Health Related Social Needs: No Data to Display PFSH All Active Problems (Updated 11/14/23 @ 21:11 by Sebastian Larson MD) Headache (Acute) Fracture of left talus (Acute 08/13/23) Left calcaneal fracture (Acute 08/13/23) Left cuboid fracture (Acute 08/13/23) Lesion of external ear (Acute) Tendinopathy of right biceps tendon (Acute) Arthritis of right acromioclavicular joint (Acute) Arthritis of right glenohumeral joint (Acute) Wears hearing aid in both ears (Acute) Alcoholism in remission (Acute) Psychological and behavioral factors associated with disorders or diseases classified elsewhere (Acute) Chronic pain (Chronic) Lesion of ear (Acute) Allergic rhinitis (Acute) Optic atrophy, left eye (Chronic) Arthrosis of right shoulder region (Acute 02/04/17) Chronic mastoiditis (Acute 03/22/13) Chronic mastoiditis of both sides (Acute 03/20/15) Impacted cerumen (Acute 06/14/13) Otitis externa (Acute 03/22/13) Right rotator cuff tendinitis (Acute 02/04/17) Gastroesophageal reflux disease (Chronic) Encounter for screening colonoscopy (Acute) Chronic anal fissure (Acute ~09/19/18) 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 (Acute) Lateral epicondylitis, right elbow (Acute) Impetigo (Acute) Conductive hearing loss of both ears (Acute) Shortness of breath (Acute) Infection of left mastoid bowl (Acute) Otitis externa in other diseases classified elsewhere, bilateral (Acute) Superficial mycosis (Acute) Infection of right mastoid bowl (Acute) Bicuspid aortic valve (Acute) Hyperlipidemia (Acute) Left sided sciatica (Acute) Bursitis, trochanteric (Acute) Trochanteric bursitis of left hip (Acute) History of sciatica (Acute) Impacted cerumen, bilateral (Acute) Chronic pain syndrome (Chronic) Sacroiliac joint dysfunction of left side (Acute) Dysphasia (Acute) Medical History Impacted cerumen, left ear Pain, joint, shoulder, right Lateral epicondylitis Barretts esophagus EGD done [facility] 06/06/2019 Pityriasis rubra pilaris Onychomycosis of toenail Lumbago Colorectal polyp detected on colonoscopy (~09/19/18) Esophagitis (~09/19/18) Gastritis (~09/19/18) History of corrected cleft lip and palate CVA (cerebral vascular accident) 2019-per pt. 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 states he has had only one stroke-like event GERD (gastroesophageal reflux disease) Anxiety and depression Papular urticaria Tobacco use disorder Otitis externa DJD (degenerative joint disease) Mastoiditis Alcoholism Hearing loss Lumbosacral neuritis Insomnia Surgical History History of myringotomy History of repair of congenital cleft palate S/P colonoscopy (~09/19/18) History of cataract surgery Tympanoplasty II - IV Tympanoplasty I Arthroscopy, Shoulder Family History Other Asthma Cancer Diabetes Heart disease Social History Smoking/Tobacco Use Status: Current every day Tobacco Type: cigarettes Smoking packs per day: 0.5 Smoking cigarettes per day: 10.0 Years smoked: 40 Smoking pack-years: 20.00 Counseling given: counseling >3 minutes Smoking risk assessment performed?: Yes Alcohol Intake: current Alcohol Intake frequency: 3 or more drinks per day Alcohol type: beer Details: 12 pack ppd Drug use: Never Substance use type: does not use Details: 6 pack beer daily What type of physical activity do you participate in: none and additional Details: just walk/work Do you feel safe at home: Yes Do you feel safe in your relationship?: Yes PAWSS Have you Been Recently Intoxicated or Drunk Within the Last 30 days?: Yes Have you Ever Experienced Previous Episodes of Alcohol Withdrawal?: Yes Have you ever Experienced Withdrawal Seizures?: No Have you ever Experienced Delirium Tremens(DT)s?: Yes Have you ever undergone Alcohol Rehabilitation Treatment (i.e, inpt ot outpatient treatment programs)?: Yes Have you ever Experienced Blackouts?: Yes Have you ever Combined Alcohol with other Downers within the last 90 days?: No Have you ever Combined Alcohol with any other Substance of Abuse during the last 90 days?: No Positive Blood Alcohol level on Presentation? [PCS.BAL]: Yes Evidence of Increased Autonomic Activity (i.e. HR>120, tremor, sweating, agitation, nausea)?: No Result: 6
[2023-11-14] MEDS: Normal Saline 1,000 ML 1000 ML IV (19:13)
[2023-11-14] MEDS: ACETAMINOPHEN 1,000 MG/100 ML BTL 400 MG IVPB (19:14)
[2023-11-14] MEDS: Metoclopramide 10 MG/2 ML VIAL IVP (19:14)
[2023-11-14] MEDS: LORazepam 2 MG/ML VIAL 1 MG IVP (19:14)
[2023-11-14 19:24] LABS: Abs Immature Grans 0.04 10^3/uL (0.0-0.06); Absolute Basophil Count 0.04 10^3/uL (0.0-0.2); Absolute Eosinophil Count 0.11 10^3/uL (0.0-0.7); Absolute Lymphocyte Count 1.69 10^3/uL (1.2-3.4); Absolute Monocyte Count 1.18 10^3/uL (0.1-0.8); Absolute Neutrophil Count 7.72 10^3/uL (1.2-6.7); Basophils % 0.4 %; HCT 40.3 % (40.0-50.0); HGB 13.9 g/dL (13.5-17.5); Immature Grans % 0.4 %; Lymphocytes % 15.7 %; MCHC 34.5 % (32.0-36.0); MCV 93 fL (80-95); MPV 8.6 fL (8.0-11.0); Monocytes % 10.9 %; Neutrophils % 71.6 %; Platelet Count 244 10^3/uL (130-400); RBC 4.34 10^6/uL (4.36-5.78); RDW 13.8 % (11.8-14.1); RDW-SD 47.2 fL; WBC 10.78 10^3/uL (4.4-10.8)
[2023-11-14 19:37] LABS: PTT Activated 26.3 sec (23.6-32.8)
[2023-11-14 19:42] LABS: ALT 28 U/L (16-63); AST 24 U/L (15-37); Albumin 3.1 g/dL (3.4-5.0); Alkaline Phosphatase 70 U/L (46-116); Anion Gap 10.2 mmol/L (3-11); BUN 15 mg/dL (7-18); Bilirubin, Total 0.23 mg/dL (0.2-1.0); CO2 22.8 mmol/L (21.0-32.0); CREATININE 0.8 mg/dL (0.70-1.30); Chloride 102 mmol/L (98-107); Estimated GFR 104.51 (mL/min/1.73m2); Glucose 174 mg/dL (74-106); Potassium 3.1 mmol/L (3.5-5.1); Sodium 135 mmol/L (136-145); Total Protein 6.5 g/dL (6.4-8.2)
[2023-11-14 19:52] LABS: ETHANOL BLOOD 14.2 mg/dL (<10); Magnesium 1.9 mg/dL (1.8-2.4); TSH (W/Ref FT4) 0.67 uIU/mL (0.36-3.74)
--- NOTE | 2023-11-14 20:21 | DI.VRAD_ITS ---
PROCEDURE INFORMATION: Exam: CT Head Without Contrast Exam date and time: 11/14/2023 7:23 PM Age: 53 years old Clinical indication: Pain; Patient HX: Frontal headache, photophobia TECHNIQUE: Imaging protocol: Computed tomography of the head without contrast. Radiation optimization: All CT scans at this facility use at least one of these dose optimization techniques: automated exposure control; mA and/or kV adjustment per patient size (includes targeted exams where dose is matched to clinical indication); or iterative reconstruction. COMPARISON: CT HEAD CERVICAL SPINE WO 05/21/2021 3:24 AM FINDINGS: Brain: No acute intracranial hemorrhage.. There is mild diffuse heterogeneity of the white matter attenuation, consistent with chronic white matter ischemic changes. Mild cerebral atrophy Cerebral ventricles: No ventriculomegaly. Paranasal sinuses: Mild opacities in the ethmoid sinuses and maxillary sinuses may represent mild sinusitis. Mastoid air cells: Status post resection of the mastoid air cells Bones: Unremarkable. No acute fracture. Soft tissues: Unremarkable. IMPRESSION: 1. No acute intracranial hemorrhage.. 2. Mild opacities in the ethmoid sinuses and maxillary sinuses may represent mild sinusitis. Dictated and Authenticated by: Siobhan Walker MD. Ordering:BETTY Cortes MD
--- NOTE | 2023-11-15 09:28 | W.ED.FU ---
Date of service: 12/15/23 Follow Up Plan: Contacted with critical over read by radiologist. Patient presented to the emergency department yesterday and had CT imaging of his head that was read by V rad as normal. Our radiologist has over read and is concern for pneumocephalus. I have contacted the patient who was difficult to understand over the phone, but was able to communicate and will return to the emergency department as soon as possible for reevaluation.
== END 2023-11-14 21:15 | disposition home or self-care (01) ==
PROVIDERS: Emergency Provider Emergency Medicine; PCP Family Medicine
DX: R51.9 Headache, unspecified (principal)
CPT/HCPCS: 36415; 80053; 96361; 96365; 96375; 99284; 70450; 80320; 83735; 84443; 85025; 85610; 85730; J0131; J2060; J2765

== ENCOUNTER 2023-11-15 09:45 | Emergency (ER) | payer MEDICAID, SELFPAY ==
[2023-11-15] VITALS (28 sets, daily range): BP systolic 143–174; BP diastolic 86–103; PULSE 64–87; RESP 16; TEMP 36.9; O2SAT 97–100
--- NOTE | 2023-11-15 10:00 | DI.CT_ITS ---
Exam(s) CT HEAD WO EXAM: CT HEAD WO CLINICAL HISTORY: re-evaluation of pneumocephalus. TECHNIQUE: Imaging Protocol: Axial computed tomography images with coronal and sagittal reformatted images were created and reviewed COMPARISON: CR CERV SP.WITH OBL OR FLEX/EXT from 11/21/2007 CT TEMPORAL BONE WITH CONTRAST from 05/05/[address] HEAD WO from 11/14/2023 FINDINGS: There are no skull fractures. Mucosal thickening in the posterior wall the sphenoid sinus is again no angelina. Prior mastoidectomies again noted. There is no evidence of intracranial hemorrhage, mass effect, or shift of midline structures. There are no extra-axial fluid collections. The ventricles are not enlarged or shifted and there is no blo od within the ventricular system nor within the basal cisterns. Previously described air-gas seen in the cavernous sinuses on yesterday's CT scan is no longer seen. No intracranial air-gas seen at this time. IMPRESSION: No acute intracranial findings on this noninfused CT scan of the brain. Previously present air-gas in the cavernous sinuses is no longer present. RADIATION DOSE DELIVERED: 747.76mGy.cm Total DLP DATA REPOSITORY: All CT scans at this facility are submitted to the National Radiology Data Registry (NRDR) Dose Index Registry (DIR) with the [employer] ([employer]). RADIATION OPTIMIZATION: All CT scans at this facility use at least one of these dose optimization te chniques: automated exposure control; mA and/or kV adjustment per patient size (includes targeted exa ms where dose is matched to clinical indication); or iterative reconstruction.
--- NOTE | 2023-11-15 10:12 | W.ED.GENAD ---
Discharge Plan Disposition Patient Disposition: Home Condition: Stable Discharge Details Clinical Impression: Headache, Hypokalemia, Blood pressure elevated without history of HTN Primary Care Provider: Cristel Ramos ED Provider: Regina Drummond Home Meds and New Rx's Prescriptions: New fluticasone propionate [Flonase Allergy Relief] 50 mcg/actuation spray,suspension 2 spray intranasal DAILY Qty: 16 0RF Rx Instructions: administer into each nostril Continued ProAir RespiClick 90 MCG aerosol powdr breath activated 90 mcg Inhalation Q6H PRN Patient Comments: pt ran out budesonide-formoterol [Symbicort] 80-4.5 mcg/actuation HFA aerosol inhaler 2 puff IH BID atorvastatin 20 mg tablet 20 mg PO DAILY Qty: 90 6RF folic acid 1 mg tablet 1 mg PO DAILY triamcinolone acetonide 0.1 % cream 1 applic topical BID pregabalin 100 mg capsule 100 mg PO TID omeprazole 40 mg capsule,delayed release(DR/EC) See Rx Instructions .ROUTE .COMPLEX Qty: 90 3RF Dose Instruction: TAKE ONE CAPSULE BY MOUTH EVERY DAY Rx Instructions: TAKE ONE CAPSULE BY MOUTH EVERY DAY cetirizine 10 mg tablet 10 mg PO DAILY Patient Comments: TAKE ONE TABLET BY MOUTH EVERY DAY Discontinued acetaminophen [Tylenol Extra Strength] 500 mg Tablet 1,000 mg PO Q6H PRN (Reason: Pain) Discharge Instructions Additional Instructions: Please call [facility] first thing in the morning to schedule follow-up appointment within the next week or two. Your blood pressure was elevated today. I recommend that he have it rechecked at that time and discuss management of blood pressure. Your potassium was low today. I recommend that you increase your consumption of potassium rich foods such as bananas, oranges, potatoes, and leafy greens. As you have some sinus congestion noted on your CAT scan you may use Flonase for possible sinus inflammation. An ice pack on your head may also be helpful. Stay well-hydrated, drinking plenty of fluids throughout the day. Please avoid Tylenol while you are drinking alcohol, as it may lead to severe liver damage. Return to emergency care if you develop new headache, vision changes, dizziness, headache that changes with position, uncontrollable vomiting, balance issues, or if you are very worried and need to be rechecked again immediately Referrals: Cristel Ramos MD [Primary Care Provider] - [facility] General Date/Time Provider Initiated Documentation: 11/15/23 09:47. HPI Narrative: Richie is a 53-year-old male with history of regular EtOH use who presents to the emergency department today for reevaluation after having multiple small gas bubbles noted within the bilateral cavernous sinuses. He was seen in the emergency department yesterday for evaluation of headache, says that he has had an occipital headache for the last 3 to 4 days that has since moved to a frontal headache that is aggravated by movement of his eyebrows. He also notes a swollen bump behind his left ear that started when the headache started. He denies associated fever/chills, vision change, change in speech/voice, neck pain, new congestion, cough change from baseline, chest pain, nausea/vomiting, abdominal pain, change in bowel or bladder function, history of spinal instrumentation/injections, history of IV drug use, recent trauma, head surgery history other than ear surgeries performed a while ago. He does wear hearing aids. Related Data Home Medications Medication Instructions Recorded Confirmed albuterol sulfate 90 mcg/actuation 90 mcg inhalation Q6H PRN 09/22/17 11/15/23 breath activated powder inhaler (ProAir RespiClick) budesonide-formoterol HFA 80 2 puff inhalation BID 05/14/19 11/15/23 mcg-4.5 mcg/actuation aerosol inhaler (Symbicort) atorvastatin 20 mg tablet 20 mg PO DAILY #90 tabs 08/14/20 11/15/23 folic acid 1 mg tablet 1 mg PO DAILY 05/24/22 11/15/23 triamcinolone acetonide 0.1 % 1 applic topical BID 05/24/22 11/15/23 topical cream pregabalin 100 mg capsule 100 mg PO TID 11/09/22 11/15/23 omeprazole 40 mg capsule,delayed See Rx Instructions .Route 06/26/23 11/15/23 release .COMPLEX #90 caps cetirizine 10 mg tablet 10 mg PO DAILY 08/15/23 11/15/23 fluticasone propionate 50 2 spray intranasal DAILY #16 grams 11/15/23 mcg/actuation nasal spray,suspension (Flonase Allergy Relief) Previous Rx's Medication Instructions Recorded atorvastatin 20 mg tablet 20 mg PO DAILY #90 tabs 08/14/20 omeprazole 40 mg capsule,delayed See Rx Instructions .Route 06/26/23 release .COMPLEX #90 caps fluticasone propionate 50 2 spray intranasal DAILY #16 grams 11/15/23 mcg/actuation nasal spray,suspension (Flonase Allergy Relief) Allergies Allergy/AdvReac Type Severity Reaction Status Date / Time ibuprofen Allergy Mild Hives Verified 11/15/23 09:53 lisinopril AdvReac Unknown cough Verified 11/15/23 09:53 General Stated Complaint: Headache DIANNA: 3 Review of Systems Narrative: see HPI Exam Const General: cooperative, comfortable and no acute distress Nutritional Appearance: thin HENMT Head: normal to inspection General nose exam: external nose normal Face and sinus: normal facial exam Mouth: oral mucosae normal Throat: posterior oropharynx normal and uvula midline Eyes Pupils: PERRL EOM: EOM intact bilaterally Neck Neck: normal visual inspection, full ROM and lymphadenopathy (firm nodule noted behind L ear (1 cm diameter)) Resp Effort & Inspection: normal respiratory effort, able to speak in complete sentences and cough (occasional) Neuro General: no meningeal signs and CN's II-XI intact bilaterally Cognition: normal cognition Speech: speech normal Gait: normal gait Motor: muscle tone normal throughout and strength 5/5 throughout Sensory Exam: no sensory deficits noted Extrem General: normal to inspection Course Vital Signs Vital signs: Vital Signs Temperature 36.9 C 11/15/23 09:47 Pulse 87 11/15/23 09:47 Respiratory Rate 16 11/15/23 09:47 Blood Pressure 157/102 H 11/15/23 09:47 Pulse Oximetry 100 11/15/23 09:47 Temperature 36.9 C 11/15/23 09:53 Temperature Source Temporal Artery Scan 11/15/23 09:53 Pulse 87 11/15/23 09:53 Respiratory Rate 16 11/15/23 09:53 Respiratory Effort Normal 11/15/23 09:52 Blood Pressure 157/102 H 11/15/23 09:53 Blood Pressure Position Sitting 11/15/23 09:53 Pulse Oximetry 100 11/15/23 09:53 Oxygen Delivery Method Room Air 11/15/23 09:53 Oxygen Flow Rate 0 11/15/23 09:53 Pain Level 8 11/15/23 09:53 Medical Decision Making Richie is a 53-year-old male with history of regular EtOH use who presents to the emergency department today for reevaluation after having multiple small gas bubbles noted within the bilateral cavernous sinuses. He was seen in the emergency department yesterday for evaluation of headache, says that he has had an occipital headache for the last 3 to 4 days that has since moved to a frontal headache that is aggravated by movement of his eyebrows. He also notes a swollen bump behind his left ear that started when the headache started. He denies associated fever/chills, vision change, change in speech/voice, neck pain, new congestion, cough change from baseline, chest pain, nausea/vomiting, abdominal pain, change in bowel or bladder function, history of spinal instrumentation/injections, history of IV drug use, recent trauma, head surgery history other than ear surgeries performed a while ago. He does wear hearing aids. Physical exam reassuring. Cranial nerves II through XII intact as tested. PERRL, EOMs intact. Small fixed nodule approximately 1 cm diameter noted approximately 2 cm behind the left ear. No other postauricular/cervical/ submandibular lymphadenopathy noted. Normal oropharynx, uvula midline. 5 out of 5 muscle strength upper and lower extremities. Sensation grossly intact. Normal finger finger, finger-nose, heel cazares, Romberg, gait. Easy work of breathing, occasional cough noted. DDx includes but is not limited to: resolved pneumochepalus, persistent pneumocephalus, migraine headache. No red flags concerning for acute CVA. chest x-ray obtained to rule out pneumomediastinum as etiology of pneumocephalus. I did review ER note from yesterday, patient received Tylenol and Reglan for migraine headache. He reports that this did not provide any relief and his headache was just as bad when he left the emergency department. CBC, CMP, TSH, and coags performed yesterday, no acute abnormalities noted (aside from mild hypokalemia, 3.1). Repeat head CT and chest x-ray obtained, no acute findings noted. Air bubbles have resolved. No red flags on history or physical exam indicating need for emergent blood work or additional imaging at this time. While in the emergency department Richie received IV prochlorperazine and Benadryl for headache, as well as dexamethasone for prevention of recurrence of headache. I independently interpreted the following tests: CMP reassuring, hypokalemia unchanged from previous. While in the emergency department Richie received IV Compazine, diphenhydramine, and dexamethasone for headache and potassium replacement. Richie reports headache is feeling improved, was initially 8 out of 10, now 5 out of 10. Overall workup today reassuring. Unclear etiology of headache, possible sinusitis as headache is frontal, located over sphenoid sinuses, which were noted to have mucosal thickening on CT scan. Will treat with Flonase. Reviewed red flags indicate need for return to emergency care with patient. Recommend follow-up with PCP within the week. Imaging Data Radiologic Study: Radiologist's impression: Exam(s) XR CHEST 2V PA LATERAL EXAM: XR CHEST 2V PA LATERAL CLINICAL HISTORY: COPD, pneumocephalus. TECHNIQUE: 2D digital imaging was performed. COMPARISON: CR,XR XR CHEST 3 VIEW from 12/18/[address] CHEST LUNG CANCER SCREEN from 02/23/2023 FINDINGS: 2 views: Heart size is normal. The mediastinum is not widened. No evidence of pneumomediastinum. No evidence of pneumothorax. Lungs are clear. No infiltrates nor pleural effusions. IMPRESSION: No acute pulmonary findings. Radiologic Study #2: Radiologist's impression: Exam(s) CT HEAD WO EXAM: CT HEAD WO CLINICAL HISTORY: re-evaluation of pneumocephalus. TECHNIQUE: Imaging Protocol: Axial computed tomography images with coronal and sagittal reformatted images were created and reviewed COMPARISON: CR CERV SP.WITH OBL OR FLEX/EXT from 11/21/2007 CT TEMPORAL BONE WITH CONTRAST from 05/05/[address] HEAD WO from 11/14/2023 FINDINGS: There are no skull fractures. Mucosal thickening in the posterior wall the sphenoid sinus is again noted. Prior mastoidectomies again noted. There is no evidence of intracranial hemorrhage, mass effect, or shift of midline structures. There are no extra-axial fluid collections. The ventricles are not enlarged or shifted and there is no blood within the ventricular system nor within the basal cisterns. Previously described air-gas seen in the cavernous sinuses on yesterday's CT scan is no longer seen. No intracranial air-gas seen at this time. IMPRESSION: No acute intracranial findings on this noninfused CT scan of the brain. Previously present air-gas in the cavernous sinuses is no longer present Quality:SDOH Health Related Social Needs: No Data to Display PFSH All Active Problems (Updated 11/15/23 @ 13:08 by Regina Victoria) Blood pressure elevated without history of HTN (Acute) Hypokalemia (Acute) No-show for appointment (Acute) Headache (Acute) Fracture of left talus (Acute 08/13/23) Left calcaneal fracture (Acute 08/13/23) Left cuboid fracture (Acute 08/13/23) Lesion of external ear (Acute) Tendinopathy of right biceps tendon (Acute) Arthritis of right acromioclavicular joint (Acute) Arthritis of right glenohumeral joint (Acute) Wears hearing aid in both ears (Acute) Alcoholism in remission (Acute) Psychological and behavioral factors associated with disorders or diseases classified elsewhere (Acute) Chronic pain (Chronic) Lesion of ear (Acute) Allergic rhinitis (Acute) Optic atrophy, left eye (Chronic) Arthrosis of right shoulder region (Acute 02/04/17) Chronic mastoiditis (Acute 03/22/13) Chronic mastoiditis of both sides (Acute 03/20/15) Impacted cerumen (Acute 06/14/13) Otitis externa (Acute 03/22/13) Right rotator cuff tendinitis (Acute 02/04/17) Gastroesophageal reflux disease (Chronic) Encounter for screening colonoscopy (Acute) Chronic anal fissure (Acute ~09/19/18) 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 (Acute) Lateral epicondylitis, right elbow (Acute) Impetigo (Acute) Conductive hearing loss of both ears (Acute) Shortness of breath (Acute) Infection of left mastoid bowl (Acute) Otitis externa in other diseases classified elsewhere, bilateral (Acute) Superficial mycosis (Acute) Infection of right mastoid bowl (Acute) Bicuspid aortic valve (Acute) Hyperlipidemia (Acute) Left sided sciatica (Acute) Bursitis, trochanteric (Acute) Trochanteric bursitis of left hip (Acute) History of sciatica (Acute) Impacted cerumen, bilateral (Acute) Chronic pain syndrome (Chronic) Sacroiliac joint dysfunction of left side (Acute) Dysphasia (Acute) Medical History Impacted cerumen, left ear Pain, joint, shoulder, right Lateral epicondylitis Barretts esophagus EGD done [facility] 06/06/2019 Pityriasis rubra pilaris Onychomycosis of toenail Lumbago Colorectal polyp detected on colonoscopy (~09/19/18) Esophagitis (~09/19/18) Gastritis (~09/19/18) History of corrected cleft lip and palate CVA (cerebral vascular accident) 2019-per pt. 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 states he has had only one stroke-like event GERD (gastroesophageal reflux disease) Anxiety and depression Papular urticaria Tobacco use disorder Otitis externa DJD (degenerative joint disease) Mastoiditis Alcoholism Hearing loss Lumbosacral neuritis Insomnia Surgical History History of myringotomy History of repair of congenital cleft palate S/P colonoscopy (~09/19/18) History of cataract surgery Tympanoplasty II - IV Tympanoplasty I Arthroscopy, Shoulder Family History Other Asthma Cancer Diabetes Heart disease Social History Smoking/Tobacco Use Status: Current every day Tobacco Type: cigarettes Smoking packs per day: 0.5 Smoking cigarettes per day: 10.0 Years smoked: 40 Smoking pack-years: 20.00 Counseling given: counseling >3 minutes Smoking risk assessment performed?: Yes Alcohol Intake: current Alcohol Intake frequency: 3 or more drinks per day Alcohol type: beer Details: 12 pack ppd Drug use: Never Substance use type: does not use Details: 6 pack beer daily What type of physical activity do you participate in: none and additional Details: just walk/work Do you feel safe at home: Yes Do you feel safe in your relationship?: Yes
--- NOTE | 2023-11-15 10:42 | DI.RAD_ITS ---
Exam(s) XR CHEST 2V PA LATERAL EXAM: XR CHEST 2V PA LATERAL CLINICAL HISTORY: COPD, pneumocephalus. TECHNIQUE: 2D digital imaging was performed. COMPARISON: CR,XR XR CHEST 3 VIEW from 12/18/[address] CHEST LUNG CANCER SCREEN from 02/23/2023 FINDINGS: 2 views: Heart size is normal. The mediastinum is not widened. No evidence of pneumomediastinum. No evidenc e of pneumothorax. Lungs are clear. No infiltrates nor pleural effusions. IMPRESSION: No acute pulmonary findings. DATA REPOSITORY: RADIATION DOSE DELIVERED:
[2023-11-15] MEDS: Nicotine 4 MG LOZG SUC (10:45)
[2023-11-15] MEDS: diphenhydrAMINE 50 MG/ML VIAL 25 MG IVP (11:36)
[2023-11-15] MEDS: Dexamethasone 10 MG/ML VIAL IVP (11:37)
[2023-11-15] MEDS: Prochlorperazine 10 MG/2 ML VIAL IVP (11:37)
[2023-11-15 11:56] LABS: ALT 32 U/L (16-63); AST 31 U/L (15-37); Albumin 3.1 g/dL (3.4-5.0); Alkaline Phosphatase 70 U/L (46-116); Anion Gap 8.3 mmol/L (3-11); BUN 11 mg/dL (7-18); Bilirubin, Total 0.37 mg/dL (0.2-1.0); CO2 27.7 mmol/L (21.0-32.0); CREATININE 0.7 mg/dL (0.70-1.30); Calcium 8.4 mg/dL (8.5-10.1); Chloride 103 mmol/L (98-107); Estimated GFR 108.82 (mL/min/1.73m2); Glucose 110 mg/dL (74-106); Potassium 3.1 mmol/L (3.5-5.1); Sodium 139 mmol/L (136-145); Total Protein 6.6 g/dL (6.4-8.2)
[2023-11-15] MEDS: Potassium Bicarbonate/Cit AC 25 MEQ TABLET.EFF PO (12:22)
--- NOTE | 2023-11-15 13:21 | NUR.NOTE ---
Referral faxed to PCP for headache appt for next week. Nursing Note:
== END 2023-11-15 13:30 | disposition home or self-care (01) ==
PROVIDERS: Emergency Provider Nurse Practitioner Family; PCP Family Medicine
DX: R51.9 Headache, unspecified (principal); E87.6 Hypokalemia; R03.0 Elevated blood-pressure reading, without diagnosis of hypertension
CPT/HCPCS: 36415; 80053; 96374; 96375; 99284; 70450; 71046; J0780; J1100; J1200

== ENCOUNTER 2024-04-13 01:25 | Emergency (ER) | payer MEDICAID, SELFPAY ==
[2024-04-13 01:29] VITALS: BP 157/98; PULSE 87; RESP 16; TEMP 36.4; O2SAT 98
--- NOTE | 2024-04-13 01:30 | DI.RAD_ITS ---
Exam(s) XR HIP LT COMPLETE AP PELVIS EXAM: XR HIP LT COMPLETE AP PELVIS CLINICAL HISTORY: left hip pain after fall. TECHNIQUE: 2D digital imaging was performed of the left hip. Two views were obtained. AP pelvis an d lateral left hip views were obtained. COMPARISON: CR,XR XR HIP LT COMPLETE AP PELVIS from 03/09/2021 FINDINGS: BONES: No acute fracture is present. No bony destructive lesion is seen. JOINTS: No dislocation present. SOFT TISSUE: Normal. IMPRESSION: Unremarkable radiographs of the left hip. Unremarkable radiographs of the pelvis DATA REPOSITORY: RADIATION DOSE DELIVERED:
[2024-04-13] MEDS: Acetaminophen 500 MG TAB 1000 MG PO (01:50)
--- NOTE | 2024-04-13 01:51 | ED.GENADUL_ITS ---
Discharge Plan Disposition Patient Disposition: Home Condition: Good Discharge Details Clinical Impression: Alcohol intoxication, Contusion of hip, left Primary Care Provider: Cristel Ramos ED Provider: Yosef Toribio Home Meds and New Rx's Prescriptions: No Action ProAir RespiClick 90 MCG aerosol powdr breath activated 90 mcg Inhalation Q6H PRN Patient Comments: pt ran out budesonide-formoterol [Symbicort] 80-4.5 mcg/actuation HFA aerosol inhaler 2 puff IH BID atorvastatin 20 mg tablet 20 mg PO DAILY Qty: 90 6RF folic acid 1 mg tablet 1 mg PO DAILY pregabalin 100 mg capsule 100 mg PO TID omeprazole 40 mg capsule,delayed release(DR/EC) See Rx Instructions .ROUTE .COMPLEX Qty: 90 3RF Dose Instruction: TAKE ONE CAPSULE BY MOUTH EVERY DAY Rx Instructions: TAKE ONE CAPSULE BY MOUTH EVERY DAY fluticasone propionate [Flonase Allergy Relief] 50 mcg/actuation spray,suspension 2 spray intranasal DAILY Qty: 16 0RF Rx Instructions: administer into each nostril fluoxetine 40 mg capsule 40 mg PO DAILY Patient Comments: TAKE ONE CAPSULE BY MOUTH EVERY MORNING FOR DEPRESSION ipratropium-albuterol 0.5 mg-3 mg(2.5 mg base)/3 mL solution for nebulization 3 ml INHALATION TID Patient Comments: INHALE THE CONTENTS OF ONE VIAL VIA NEBULIZER THREE TIMES A DAY fluoxetine 20 mg capsule 20 mg PO DAILY Patient Comments: TAKE ONE CAPSULE BY MOUTH EVERY DAY IN THE MORNING cetirizine 10 mg tablet 10 mg PO DAILY Patient Comments: TAKE ONE TABLET BY MOUTH EVERY DAY Discharge Instructions Instructions: Minor Contusion ED Additional Instructions: At this time your x-ray shows no evidence of significant fracture. Please take Tylenol and Motrin as needed for pain. If you notice any worsening of your symptoms, or any new symptoms such as vomiting, diarrhea, fever, chills, shortness of breath, chest pain, numbness, weakness, or fainting , please return immediately to the emergency department for reevaluation. Please follow up with your primary care provider as soon as possible for reassessment and reevaluation. As always, it was a pleasure participating in your medical care today. Referrals: Cristel Ramos MD [Primary Care Provider] - Discharge Data Discharge Date/Time-TO BE ENTERED AT DEPARTURE: 04/13/24 01:55 HPI General Date/Time Provider Initiated Documentation: 04/13/24 01:29 . HPI Narrative: This is a 54-year-old male with a past medical history of Vázquez's esophagus, esophagitis, previous stroke, COPD, hypertension, high cholesterol, tobacco use, previous alcoholism, who presents today with police for medical clearance. Patient states that he was walking home after eating Thanksgiving dinner with friends, unfortunately per police report he was found intoxicated walking into strangers homes, confused as to where he was. He blew an alcohol level in the 140s, but began complaining of left hip pain. He was brought to the ER for medical clearance. Patient admits to a pain in his left hip for the last few weeks, worsened today during the scuffle with police. He denies any other significant pain or complaints. He denies chest or abdominal pain. He denies fever, chills, vomiting or diarrhea. He denies headache or head pain. Related Data Home Medications ?Medication ?Instructions ?Recorded ?Confirmed albuterol sulfate 90 mcg/actuation 90 mcg inhalation Q6H PRN 09/22/17 04/13/24 breath activated powder inhaler (ProAir RespiClick) budesonide-formoterol HFA 80 2 puff inhalation BID 05/14/19 04/13/24 mcg-4.5 mcg/actuation aerosol inhaler (Symbicort) atorvastatin 20 mg tablet 20 mg PO DAILY #90 tabs 08/14/20 04/13/24 folic acid 1 mg tablet 1 mg PO DAILY 05/24/22 04/13/24 pregabalin 100 mg capsule 100 mg PO TID 11/09/22 04/13/24 omeprazole 40 mg capsule,delayed See Rx Instructions .Route 06/26/23 04/13/24 release .COMPLEX #90 caps cetirizine 10 mg tablet 10 mg PO DAILY 08/15/23 04/13/24 fluticasone propionate 50 2 spray intranasal DAILY #16 grams 11/15/23 04/13/24 mcg/actuation nasal spray,suspension (Flonase Allergy Relief) fluoxetine 20 mg capsule 20 mg PO DAILY 04/13/24 04/13/24 fluoxetine 40 mg capsule 40 mg PO DAILY 04/13/24 04/13/24 ipratropium 0.5 mg-albuterol 3 mg 3 ml inhalation TID 04/13/24 04/13/24 (2.5 mg base)/3 mL nebulization soln Previous Rx's ?Medication ?Instructions ?Recorded atorvastatin 20 mg tablet 20 mg PO DAILY #90 tabs 08/14/20 omeprazole 40 mg capsule,delayed See Rx Instructions .Route 06/26/23 release .COMPLEX #90 caps fluticasone propionate 50 2 spray intranasal DAILY #16 grams 11/15/23 mcg/actuation nasal spray,suspension (Flonase Allergy Relief) Allergies Allergy/AdvReac Type Severity Reaction Status Date / Time ibuprofen Allergy Mild Hives Verified 04/13/24 01:35 lisinopril AdvReac Unknown cough Verified 04/13/24 01:35 General Stated Complaint: ETOHWithdr DIANNA: 5 Review of Systems All systems reviewed & are unremarkable except as noted in HPI and below Exam Narrative Exam Narrative: 1.Const: Well-nourished, Well-developed, appearing stated age 2.Eyes: PERRL, no conjunctival injection, and symmetrical lids. 3.ENT: Atraumatic external nose and ears. Moist MM. Neck: Symmetric, trachea midline, No thyromegaly. There is no evidence of raccoon eyes, das sign, CSF rhinorrhea, mastoid tenderness, cranial crepitus, hemotympanum, exophthalmos, or hyphema. Patient demonstrates intact dentition with no signs of tooth avulsion or fracture, no signs of jaw deformity, no evidence of a LeFort's fracture, with an intact palate, nose and orbital region. There is no evidence of a nasal septal hematoma. No proptosis. Jaw closes symmetrically. Airway is clear. 4.CVS: +S1/S2, Peripheral pulses 2+ and equal in all extremities. Brisk capillary refill in all extremities. 5.RESP: Unlabored respiratory effort. Clear to auscultation bilaterally. No wheezes rales or rhonchi 6.GI: Soft, Nontender/Nondistended, No hepatosplenomegaly. No guarding or rebound. 7.MSK: Normocephalic/Atraumatic, Extremities w/o deformity or ttp No cyanosis or clubbing, Normal movement of all extremities No midline tenderness to palpation over the CTLS spine. Normal ROM in flexion, extension, side bend, and rotation. Patient has +5 out of 5 strength in the lower extremities in dorsiflexion and plantarflexion, knee flexion and extension, hip flexion and extension. Normal strength for dorsiflexion and plantar flexion of the great toe bilaterally. Patient demonstrates mild t enderness over the greater trochanter of the left hip, minimal achiness on logroll of the left hip. However he demonstrates good movement of the hip in all directions otherwise with normal strength. No significant bruising in that area. No midline cervical thoracic or lumbar spine tenderness. 8.Skin: Warm, Dry. No rashes or lesions. 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 Sensation grossly intact, no focal neurologic deficits. 10.Psych: (AAO) x3. Appropriate mood and affect, but mild to moderately intoxicated. Course Vital Signs Vital signs: Vital Signs Temperature 36.4 C 04/13/24 01:29 Pulse 87 04/13/24 01:29 Respiratory Rate 16 04/13/24 01:29 Blood Pressure 157/98 H 04/13/24 01:29 Pulse Oximetry 98 04/13/24 01:29 Temperature 36.4 C 04/13/24 01:29 Temperature Source Temporal Artery Scan 04/13/24 01:29 Pulse 87 04/13/24 01:29 Respiratory Rate 16 04/13/24 01:29 Respiratory Effort Normal 04/13/24 01:37 Blood Pressure 157/98 H 04/13/24 01:29 Blood Pressure Position Sitting 04/13/24 01:29 Pulse Oximetry 98 04/13/24 01:29 Oxygen Delivery Method Room Air 04/13/24 01:29 Oxygen Flow Rate 0 04/13/24 01:29 Pain Level 0 04/13/24 01:29 Medical Decision Making This is a 54-year-old male with a past medical history of Vázquez's esophagus, esophagitis, previous stroke, COPD, hypertension, high cholesterol, tobacco use, previous alcoholism, who presents today with police for medical clearance. Patient states that he was walking home after eating Thanksgiving dinner with friends, unfortunately per police report he was found intoxicated walking into strangers homes, confused as to where he was. He blew an alcohol level in the 140s, but began complaining of left hip pain. He was brought to the ER for medical clearance. Patient admits to a pain in his left hip for the last few weeks, worsened today during the scuffle with police. He denies any other significant pain or complaints. He denies chest or abdominal pain. He denies fever, chills, vomiting or diarrhea. He denies headache or head pain. Physical exam demonstrates no evidence of significant trauma however he does have mild achiness on palpation of the greater trochanter of the left hip. Concern for potential contusion, fracture notably less likely. No evidence of hemotympanums, scalp hematoma, midline cervical thoracic or lumbar spine tenderness to suggest significant osseous fracture otherwise. Will get x-ray of the left hip, give Tylenol for pain control, monitor closely and reassess. X-ray shows no evidence of fracture. Patient feeling better after Tylenol. Patient medically cleared at this stage. Alcohol level appropriate for outpatient sobriety. I have extensively reviewed the treatment plan and disch arge instructions with the patient. I have addressed all patient concerns at this time. The patient was made aware of what symptoms to monitor for that would warrant a return to the emergency department. Discussed the plan with the patient, they demonstrate verbal understanding and agreement with our assessment and plan at this time. The documentation in this chart was dictated using [employer] dictation software. Please excuse any dictation errors. FINDINGS: Bones/joints: Unremarkable. No acute fracture. Soft tissues: Unremarkable. IMPRESSION: No acute findings. Thank you for allowing us to participate in the care of your patient. Dictated and Authenticated by: Rachel Calvillo MD 04/13/2024 2:32 AM Eastern Time ([place] & [place]) Quality:SDOH Health Related Social Needs: No Data to Display PFSH All Active Problems (Updated 04/13/24 @ 01:52 by Yosef Toribio DO) Contusion of hip, left (Acute) Alcohol intoxication (Acute) No-show for appointment (Acute) Fracture of left talus (Acute 08/13/23) Left calcaneal fracture (Acute 08/13/23) Left cuboid fracture (Acute 08/13/23) Lesion of external ear (Acute) Tendinopathy of right biceps tendon (Acute) Arthritis of right acromioclavicular joint (Acute) Arthritis of right glenohumeral joint (Acute) Wears hearing aid in both ears (Acute) Alcoholism in remission (Acute) Psychological and behavioral factors associated with disorders or diseases classified elsewhere (Acute) Chronic pain (Chronic) Lesion of ear (Acute) Allergic rhinitis (Acute) Optic atrophy, left eye (Chronic) Arthrosis of right shoulder region (Acute 02/04/17) Chronic mastoiditis (Acute 03/22/13) Chronic mastoiditis of both sides (Acute 03/20/15) Impacted cerumen (Acute 06/14/13) Otitis externa (Acute 03/22/13) Right rotator cuff tendinitis (Acute 02/04/17) Gastroesophageal reflux disease (Chronic) Encounter for screening colonoscopy (Acute) Chronic anal fissure (Acute ~09/19/18) 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 (Acute) Lateral epicondylitis, right elbow (Acute) Impetigo (Acute) Conductive hearing loss of both ears (Acute) Shortness of breath (Acute) Infection of left mastoid bowl (Acute) Otitis externa in other diseases classified elsewhere, bilateral (Acute) Superficial mycosis (Acute) Infection of right mastoid bowl (Acute) Bicuspid aortic valve (Acute) Hyperlipidemia (Acute) Left sided sciatica (Acute) Bursitis, trochanteric (Acute) Trochanteric bursitis of left hip (Acute) History of sciatica (Acute) Impacted cerumen, bilateral (Acute) Chronic pain syndrome (Chronic) Sacroiliac joint dysfunction of left side (Acute) Dysphasia (Acute) Medical History Impacted cerumen, left ear Pain, joint, shoulder, right Lateral epicondylitis Barretts esophagus EGD done [facility] 06/06/2019 Pityriasis rubra pilaris Onychomycosis of toenail Lumbago Colorectal polyp detected on colonoscopy (~09/19/18) Esophagitis (~09/19/18) Gastritis (~09/19/18) History of corrected cleft lip and palate CVA (cerebral vascular accident) 2019-per pt. 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 states he has had only one stroke-like event GERD (gastroesophageal reflux disease) Anxiety and depression Papular urticaria Tobacco use disorder Otitis externa DJD (degenerative joint disease) Mastoiditis Alcoholism Hearing loss Lumbosacral neuritis Insomnia Surgical History History of myringotomy History of repair of congenital cleft palate S/P colonoscopy (~09/19/18) History of cataract surgery Tympanoplasty II - IV Tympanoplasty I Arthroscopy, Shoulder Family History Other Asthma Cancer Diabetes Heart disease Social History Smoking/Tobacco Use Status: Current every day Tobacco Type: cigarettes Smoking packs per day: 0.5 Smoking cigarettes per day: 10.0 Years smoked: 40 Smoking pa ck-years: 20.00 Counseling given: counseling >3 minutes Smoking risk assessment performed?: Yes Alcohol Intake: current Alcohol Intake frequency: 3 or more drinks per day Alcohol type: beer Details: 12 pack ppd Drug use: Never Substance use type: does not use Details: 6 pack beer daily What type of physical activity do you participate in: none and additional Details: just walk/work Do you feel safe at home: Yes Do you feel safe in your relationship?: Yes PAWSS Have you Been Recently Intoxicated or Drunk Within the Last 30 days?: Unable to Obtain Have you Ever Experienced Previous Episodes of Alcohol Withdrawal?: Unable to Obtain Have you ever Experienced Withdrawal Seizures?: Unable to Obtain Have you ever Experienced Delirium Tremens(DT)s?: Unable to Obtain Have you ever undergone Alcohol Rehabilitation Treatment (i.e, inpt ot outpatient treatment programs)?: Unable to Obtain Have you ever Experienced Blackouts?: Unable to Obtain Have you ever Combined Alcohol with other Downers within the last 90 days?: Unable to Obtain Have you ever Combined Alcohol with any other Substance of Abuse during the last 90 days?: Unable to Obtain Positive Blood Alcohol level on Presentation? [PCS.BAL]: Yes Evidence of Increased Autonomic Activity (i.e. HR>120, tremor, sweating, agitation, nausea)?: Unable to Obtain Result: 1
--- NOTE | 2024-04-13 02:33 | DI.VRAD_ITS ---
PROCEDURE INFORMATION: Exam: XR Left Hip Exam date and time: 04/13/2024 1:46 AM Age: 54 years old Clinical indication: Left hip; Patient HX: Lt hip pain TECHNIQUE: Imaging protocol: Radiologic exam of the left hip. Views: 2 or 3 views hip with pelvis when performed. COMPARISON: CR XR HIP LT COMPLETE AP PELVIS 03/09/2021 10:51 PM FINDINGS: Bones/joints: Unremarkable. No acute fracture. Soft tissues: Unremarkable. IMPRESSION: No acute findings. Dictated and Authenticated by: Rachel Calvillo MD. Ordering:DANYEL Navas MD
== END 2024-04-13 01:55 | disposition home or self-care (01) ==
LOC: ER 01:58
PROVIDERS: Emergency Provider Student in an Organized Health Care Education/Training Program; PCP Family Medicine
DX: F10.220 Alcohol dependence with intoxication, uncomplicated (principal); S70.02XA Contusion of left hip, initial encounter; J44.9 Chronic obstructive pulmonary disease, unspecified; I10 Essential (primary) hypertension; Z86.73 Personal history of transient ischemic attack (TIA), and cerebral infarction without residual deficits; F17.210 Nicotine dependence, cigarettes, uncomplicated
CPT/HCPCS: 99283; 73502

== ENCOUNTER 2024-07-09 12:55 | Outpatient (REF) | payer MEDICAID, SELFPAY ==
[2024-07-09 15:23] LABS: HCT 47.8 % (40.0-50.0); HGB 16.4 g/dL (13.5-17.5); MCH 32.6 pg (27.0-33.0); MCHC 34.3 % (32.0-36.0); MCV 95 fL (80-95); MPV 9.6 fL (8.0-11.0); Platelet Count 339 10^3/uL (130-400); RBC 5.03 10^6/uL (4.36-5.78); RDW 14.2 % (11.8-14.1); WBC 8.26 10^3/uL (4.4-10.8)
[2024-07-09 16:24] LABS: ALT 26 U/L (16-63); AST 17 U/L (15-37); Albumin 3.8 g/dL (3.4-5.0); Alkaline Phosphatase 88 U/L (46-116); Anion Gap 12.2 mmol/L (3-11); BUN 14 mg/dL (7-18); Bilirubin, Total 0.51 mg/dL (0.2-1.0); CO2 24.8 mmol/L (21.0-32.0); Calcium 9.3 mg/dL (8.5-10.1); Chloride 103 mmol/L (98-107); Creatine Kinase 89 U/L (39-308); Estimated GFR 88.33 (mL/min/1.73m2); Glucose 144 mg/dL (74-106); Potassium 4.5 mmol/L (3.5-5.1); Sodium 140 mmol/L (136-145); Total Protein 6.8 g/dL (6.4-8.2)
[2024-07-09 16:26] LABS: C-Reactive Protein < 0.50 mg/dL (<or=0.5)
== END 2024-07-09 12:56 | disposition home or self-care (01) ==
LOC: NCHCN 12:55
PROVIDERS: PCP Family Medicine; Visit Provider Family Medicine
DX: M62.81 Muscle weakness (generalized) (principal)
CPT/HCPCS: 80053; 82550; 85027; 86140

== ENCOUNTER 2024-07-23 03:19 | Outpatient (CLI) | payer MEDICAID, SELFPAY ==
--- NOTE | 2024-07-23 14:12 | DI.CTLCSR_ITS ---
Exam(s) CT CHEST LUNG CANCER SCREEN EXAM: CT CHEST LUNG CANCER SCREEN CLINICAL HISTORY: NICOTINE DEPENDENCE F17.210. TECHNIQUE: Imaging Protocol: Low Dose Technique CONTRAST MATERIAL: None COMPARISON: CT CT CHEST LUNG CANCER SCREEN from 02/23/2023 FINDINGS: CHEST: LUNGS: There are no ominous pulmonary nodules. There are no confluent infiltrates. No pleural effusi ons. MEDIASTINUM: There is no obvious hilar nor mediastinal adenopathy. CARDIAC: Heart size is normal. There is no pericardial effusion.Caliber of the thoracic aorta is wit hin normal limits. OTHER: OSSEOUS: No significant osseous lesions.. IMPRESSION: 1. No concerning lung nodules. 2. No confluent infiltrates nor pleural effusions nor obvious intrathoracic adenopathy. 3. Lung RADS Cat 1 - Negative: No nodules and definitely benign nodules Lung-RADS 1.0 CATEGORIES: Category 0 - Prior chest CT exam(s) being located for comparison. Category 1 - Annual screening in 12 months. No nodules or definitely benign nodules. Category 2 - Annual screening in 12 months. Benign appearance. Nodules with low likelihood of becomin g active cancer. Category 3 - 6-month follow-up. Probably benign. Short-term follow-up suggested. Nodules with low lik elihood of becoming active cancer. Category 4A - 3-month follow-up and CT/PET if >8 mm in size. Suspicious finding. Findings which requi re additional testing. Category 4B - Findings which require additional testing and tissue sampling. Category 4X - Category 3 or 4 nodules with additional features or imaging findings that increases the suspicion of malignancy. Modifier S- Potentially clinically significant findings (non lung cancer) RADIATION DOSE DELIVERED: 24.75mGy.cm Total DLP DATA REPOSITORY: All CT scans at this facility are submitted to the National Radiology Data Registry (NRDR) Dose Index Registry (DIR) with the [employer] (ACR). RADIATION OPTIMIZATION: All CT scans at this facility use at least one of these dose optimization te chniques: automated exposure control; mA and/or kV adjustment per patient size (includes targeted exa ms where dose is matched to clinical indication); or iterative reconstruction.
== END 2024-07-23 03:39 ==
LOC: DI 03:19
PROVIDERS: PCP Family Medicine; Visit Provider Family Medicine
DX: Z12.2 Encounter for screening for malignant neoplasm of respiratory organs (principal); F17.210 Nicotine dependence, cigarettes, uncomplicated
CPT/HCPCS: 71271

== ENCOUNTER 2024-08-29 14:33 | Emergency (ER) | payer MEDICAID, SELFPAY ==
[2024-08-29 14:34] VITALS: BP 104/68; PULSE 84; RESP 18; TEMP 36.3; O2SAT 98
== END 2024-08-29 16:45 | disposition left against medical advice (07) ==
LOC: ER 14:46
PROVIDERS: PCP Family Medicine
DX: Z53.29 Procedure and treatment not carried out because of patient's decision for other reasons (principal)

== ENCOUNTER 2024-11-07 14:51 | Outpatient (CLI) | payer MEDICAID, SELFPAY ==
--- NOTE | 2024-11-07 | DI.RAD_ITS ---
Exam(s) XR TIB/FIB RT EXAM: XR TIB/FIB RT CLINICAL HISTORY: Pain of rt fibula, M89.8X6,acute proximal tibia pain s/p fall 1-2 weeks ago. TECHNIQUE: 2D digital imaging was performed. Two views. COMPARISON: No exams were available for comparison FINDINGS: BONES: There is a nondisplaced oblique fracture of the proximal fibula. No additional fractures are identified no bony destructive lesion is seen. Visualized portion of knee and ankle joints are unremarkable. No ankle mortise widening. SOFT TISSUE: Normal. IMPRESSION: Nondisplaced fracture of the proximal fibula. DATA REPOSITORY: RADIATION DOSE DELIVERED:
== END 2024-11-07 15:11 ==
LOC: DI 14:53
PROVIDERS: PCP Family Medicine; Visit Provider Nurse Practitioner Family
DX: S82.434D Nondisplaced oblique fracture of shaft of right fibula, subsequent encounter for closed fracture with routine healing (principal); X58.XXXD Exposure to other specified factors, subsequent encounter
CPT/HCPCS: 73590

== ENCOUNTER 2024-11-07 17:50 | Emergency (ER) | payer MEDICAID, SELFPAY ==
[2024-11-07 17:54] VITALS: BP 113/80; PULSE 94; RESP 20; TEMP 36.9; O2SAT 98
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
== END 2024-11-07 19:13 | disposition home or self-care (01) ==
PROVIDERS: Emergency Provider Emergency Medicine; PCP Family Medicine
DX: S82.831A Other fracture of upper and lower end of right fibula, initial encounter for closed fracture (principal); W19.XXXA Unspecified fall, initial encounter; Z59.00 Homelessness unspecified; Z59.41 Food insecurity; Z59.82 Transportation insecurity; Z59.89 Other problems related to housing and economic circumstances
CPT/HCPCS: 27780

== ENCOUNTER 2024-11-15 08:09 | Outpatient (CLI) | payer MEDICAID, SELFPAY | END 2024-11-15 08:10 | disposition home or self-care (01) | LOC: DI.CARD 08:10 | PROVIDERS: PCP Family Medicine; Visit Provider Internal Medicine Cardiovascular Disease | DX: Q23.1 Congenital insufficiency of aortic valve (principal) | CPT/HCPCS: 93010 ==

== ENCOUNTER 2024-12-07 15:28 | Outpatient (REF) | payer MEDICAID, SELFPAY ==
[2024-12-07 22:06] LABS: COMMENT (LAB VIEW ONLY) < 13.00 mg/dL; Microalb ug/mg Crea 40.0 ug/mg Cr
== END 2024-12-07 15:29 | disposition home or self-care (01) ==
LOC: NCHCN 15:28
PROVIDERS: PCP Family Medicine; Visit Provider Family Medicine
DX: I10 Essential (primary) hypertension (principal)
CPT/HCPCS: 82043; 82570

== ENCOUNTER 2025-01-25 14:16 | Emergency (ER) | payer MEDICAID, SELFPAY ==
--- NOTE | 2025-01-25 14:15 | RT.EKG_ITS ---
APPROVED REPORT Exam: Resting ECG Reason for Exam: ams Patient Location: E HR:64 bpm ECG Measurements Heart Rate 64 AXIS TX 152 P 63 QRSd 105 QRS 62 QT 401 T 43 QTc 413 Conclusion Sinus rhythm...normal P axis, V-rate 60- 99 Probable left atrial enlargement...P >50mS, <-0.10mV V1 Left ventricular hypertrophy...multiple LVH criteria ST elevation, consider anterior injury...ST >0.15mV, V1-V5
[2025-01-25 14:22] VITALS: BP 114/85; PULSE 64; RESP 18; TEMP 36.7; O2SAT 98
--- NOTE | 2025-01-25 14:30 | DI.CT_ITS ---
Exam(s) CT HEAD CERVICAL SPINE WO EXAM: CT HEAD CERVICAL SPINE WO CLINICAL HISTORY: fall, altered mental status. TECHNIQUE: Imaging Protocol: Axial computed tomography images with coronal and sagittal reformatted images were created and reviewed COMPARISON: CR CERV SP.WITH OBL OR FLEX/EXT from 11/21/2007 CT CERVICAL SPINE WITHOUT CONTRA from 12/01/2007 CR XR soft tissue neck from 11/06/2018 FINDINGS: Head CT Ventricles and Extra axial spaces: Normal in size and morphology for the patient's age. Hemorrhage: None. Cerebral parenchyma: No evidence of mass or acute infarct. Midline shift: None. Brainstem/Cerebellum: Normal. Calvarium: Normal. Visualized Paranasal sinuses/Mastoids: Clear. Soft tissues: Unremarkable. Cervical Spine CT BONES: Vertebral body heights are maintained. There is degenerative reversal of the normal cervical lordosis. there is no evidence of acute fracture. There is an old fracture of the dens. The alignment at C1-2 is unchanged. Degenerative disc changes and facet degenerative changes are seen, greater at C6-7 . SOFT TISSUES: No paraspinal hematoma. The airway appears intact. No pneumothorax is seen at the lung apices. IMPRESSION: Head CT: No acute abnormality. C-spine CT: No acute abnormality. RADIATION DOSE DELIVERED: Total DLP DATA REPOSITORY: All CT scans at this facility are submitted to the National Radiology Data Registry (NRDR) Dose Index Registry (DIR) with the [employer] (A[employer]). RADIATION OPTIMIZATION: All CT scans at this facility use at least one of these dose optimization techniques: automated exposure control; mA and/or kV adjustment per patient size (includes targeted exams where dose is matched to clinical indication); or iterative reconstruction.
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
[2025-01-25 14:37] VITALS: RESP 16
[2025-01-25 14:40] LABS: HCT 41.0 % (40.0-50.0); HGB 14.1 g/dL (13.5-17.5); MCH 32.4 pg (27.0-33.0); MCHC 34.4 % (32.0-36.0); MCV 94 fL (80-95); MPV 8.6 fL (8.0-11.0); Platelet Count 281 10^3/uL (130-400); RBC 4.35 10^6/uL (4.36-5.78); RDW 14.1 % (11.8-14.1); RDW-SD 49.6 fL; WBC 8.55 10^3/uL (4.4-10.8)
[2025-01-25 14:41] LABS: Abs Immature Grans 0.04 10^3/uL (0.0-0.06); Immature Grans % 0.5 %
[2025-01-25 15:07] LABS: Glucose Negative (Negative)
[2025-01-25 15:07] LABS: ALT 25 U/L (16-63); AST 19 U/L (15-37); Albumin 3.7 g/dL (3.4-5.0); Alkaline Phosphatase 79 U/L (46-116); Anion Gap 8.9 mmol/L (3-11); BUN 19 mg/dL (7-18); Bilirubin, Total 0.2 mg/dL (0.2-1.0); CO2 26.1 mmol/L (21.0-32.0); Calcium 9.4 mg/dL (8.5-10.1); Chloride 103 mmol/L (98-107); Estimated GFR 107.47 (mL/min/1.73m2); Glucose 80 mg/dL (74-106); Magnesium 2.3 mg/dL (1.8-2.4); Potassium 3.6 mmol/L (3.5-5.1); Sodium 138 mmol/L (136-145); TSH (W/Ref FT4) 0.95 uIU/mL (0.36-3.74); Total Protein 6.8 g/dL (6.4-8.2); Troponin I 7 ng/L (<or=76)
[2025-01-25 15:12] LABS: C & S Indicated? No; RBC 0-2 HPF (0-2); WBC Negative HPF (0-5)
[2025-01-25] MEDS: THIAMINE 500 MG in Normal Saline 100 ML 200 MG IVPB (15:25)
[2025-01-25 15:26] LABS: Cannabinoids THC Negative (Negative); METHADONE URINE SCREEN Negative (Negative)
[2025-01-25 15:30] LABS: Ammonia < 10 umol/L (11-32)
[2025-01-25 16:02] LABS: Troponin I 8 ng/L (<or=76)
[2025-01-25 16:39] VITALS: BP 169/99; PULSE 76; RESP 16; TEMP 36.7; O2SAT 98
== END 2025-01-25 16:44 | disposition home or self-care (01) ==
PROVIDERS: Emergency Provider Emergency Medicine; PCP Family Medicine
DX: R41.82 Altered mental status, unspecified (principal); W01.0XXA Fall on same level from slipping, tripping and stumbling without subsequent striking against object, initial encounter; Z59.10 Inadequate housing, unspecified; Z59.82 Transportation insecurity; Z59.87 Material hardship due to limited financial resources, not elsewhere classified; Z59.89 Other problems related to housing and economic circumstances; Z60.8 Other problems related to social environment; F10.90 Alcohol use, unspecified, uncomplicated; F14.90 Cocaine use, unspecified, uncomplicated
CPT/HCPCS: 36415; 80053; 80307; 93005; 96365; 99284; 70450; 72125; 80320; 81003; 81015; 82140; 83735; 84443; 84484; 85025; 93010; J3411